=== PATIENT | female | born 1975 | race Caucasian/White ===

== ENCOUNTER 2020-09-14 13:37 | Outpatient (REF) | payer BC, MEDICARE, SELFPAY ==
--- NOTE | 2020-09-14 | US_ITS ---
EXAMINATION: MM DIAGNOSTIC DIGITAL BREAST TOMOSYNTHESIS, BILATERAL US DIAGNOSTIC ULTRASOUND BREAST, LEFT CLINICAL INFORMATION: 45-year-old female with palpable fullness upper outer left breast for years. Patient also notes chronic intermittent bilateral milky discharge for 4 years, greater on left. 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 The lifetime risk of breast cancer based on the Tyrer-Cuzick Model is 9%. COMPARISON: Mammography: 08/31/2016, 02/03/2007 TECHNIQUE: Digital breast tomosynthesis is performed in both the craniocaudal and mediolateral oblique views along with computer-aided detection (CAD). Synthesized 2D images are generated from the tomosynthesis. Additional left exaggerated CC view is provided. Ultrasound left breast is targeted to the area of patient's palpable clinical concern upper outer quadrant. Patient is able to point to area of concern at time of imaging. Grayscale imaging and color Doppler are performed without and with harmonics. FINDINGS: There are scattered areas of fibroglandular density (ACR BI-RADS breast composition Category b). There is no developing density or interval mass or architectural abnormality. There are no abnormal calcifications. The left breast has biopsy clip marker upper outer quadrant adjacent to small stable nodule, previously confirmed to represent a fibroadenoma. There is no mammographic correlate for patient's area of clinical concern. There is no skin thickening or coarsening of the Maximilian's ligaments. Low right axillary tail node on MLO view is stable. Targeted ultrasound left breast shows no cystic or solid mass, architectural abnormality, or focal duct ectasia. No skin thickening or edema tracking in soft tissue planes. Results are discussed with the patient at time of visit. Patient's palpable concern should be managed based on the clinical impression. If clinically indicated, further evaluation may be considered with surgical consult. Decision to proceed with biopsy should be based on clinical grounds and degree of clinical concern. The bilateral nipple discharge should be correlated with laboratories for possible endocrine etiology. IMPRESSION: 1. No mammographic evidence of malignancy or inflammatory changes. 2. Unremarkable targeted left breast ultrasound. ASSESSMENT: BI-RADS 2: Benign RECOMMENDATION: 1. Patient's palpable concern should be managed based on the clinical impression. If clinically indicated, further evaluation may be considered with surgical consult. Decision to proceed with biopsy should be based on clinical grounds and degree of clinical concern. 2. The bilateral nipple discharge should be correlated with laboratories for possible endocrine etiology. 3. Otherwise, routine annual screening mammography. This patient's information was entered into a reminder system with a target due date for their next mammogram.
== END 2020-09-14 13:38 | disposition home or self-care (01) ==
LOC: HO.MAMMO 13:37
PROVIDERS: Visit Provider Internal Medicine
DX: N63.25 Unspecified lump in the left breast, overlapping quadrants (principal); N64.4 Mastodynia
CPT/HCPCS: 76642; 77062; 77066; 78013

== ENCOUNTER → 2021-03-21 14:06 | Outpatient (BNVA) | payer BC, MEDICARE, SELFPAY | PROVIDERS: PCP Internal Medicine; Visit Provider Nurse Practitioner Family ==

== ENCOUNTER 2021-07-21 12:24 | Outpatient (REF) | payer BC, MEDICARE, SELFPAY ==
--- NOTE | ~2021-07-21 | XR_ITS ---
EXAMINATION: XR HIPS, BILATERAL CLINICAL INFORMATION: Pain. COMPARISON: None TECHNIQUE: 2 views of each hip. FINDINGS: RIGHT HIP: Two views of the right hip do not demonstrate any evidence of acute fracture or dislocation. Hip joint spaces maintained. No significant spurring is appreciated. There is mild sclerosis about the sacroiliac joint without effusion. Status post previous surgery at the L5-S1 level. No lytic or sclerotic lesions are seen involving the femoral head. LEFT HIP: Two views of the left hip do not demonstrate any evidence of acute fracture or dislocation. There is mild spurring present with the joint space being maintained. No lytic or sclerotic lesions involving the femoral head noted. XR/XR hip LT min 2V IMPRESSION: 1. No significant hip abnormality appreciated. 2. Degenerative change of the right sacroiliac joint. 3. Status post surgical intervention at the L5-S1 level.
--- NOTE | ~2021-07-21 | XR_ITS ---
EXAMINATION: XR HIPS, BILATERAL CLINICAL INFORMATION: Pain. COMPARISON: None TECHNIQUE: 2 views of each hip. FINDINGS: RIGHT HIP: Two views of the right hip do not demonstrate any evidence of acute fracture or dislocation. Hip joint spaces maintained. No significant spurring is appreciated. There is mild sclerosis about the sacroiliac joint without effusion. Status post previous surgery at the L5-S1 level. No lytic or sclerotic lesions are seen involving the femoral head. LEFT HIP: Two views of the left hip do not demonstrate any evidence of acute fracture or dislocation. There is mild spurring present with the joint space being maintained. No lytic or sclerotic lesions involving the femoral head noted. XR/XR hip RT min 2V IMPRESSION: 1. No significant hip abnormality appreciated. 2. Degenerative change of the right sacroiliac joint. 3. Status post surgical intervention at the L5-S1 level.
--- NOTE | ~2021-07-21 | MR_ITS ---
EXAMINATION: MRI BRAIN WITHOUT CONTRAST CLINICAL INFORMATION: 45-year-old with headache, unspecified. COMPARISON: None. TECHNIQUE: Multiplanar multisequence MR imaging of the brain was done. FINDINGS: Brain Volume: Within normal limits based on qualitative analysis. 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 Brain and Meninges: DWI imaging demonstrates no restricted diffusion to suggest acute or subacute cerebral ischemia. The brain is normal in morphology and signal intensity. Gradient echo imaging demonstrates no evidence for hemorrhage, hemosiderin staining or abnormal mineral deposition. No extra-axial fluid collections, space-occupying process or mass effect are identified. Ventricles and Subarachnoid Spaces: Ventricular system and subarachnoid spaces are within normal limits without hydrocephalus. Orbital Structures: The visualized orbital structures are grossly unremarkable within the limitations of the study. Vascular: Signal voids are noted in the visualized major intracranial vessels. Sinuses and Osseous Structures: Nasal septal deviation to the left is noted. Bony structures appear intact. MR/MR head/brain wo con IMPRESSION: 1. 7 mm incidental benign pineal cyst. 2. Otherwise, normal noncontrast MRI of the brain.
[2021-07-21 13:38] LABS: Glucose Urine UA NEG (NEG); Leukocyte Esterase Urine NEG (NEG); Nitrite Urine NEG (NEG); PH 8.5 (5.0-8.0); Specific Gravity - Urine 1.015 (1.005-1.025); Urine Blood NEG (NEG); Urine Ketones NEG (NEG); Urine Protein TRACE MG/DL (NEG-TRACE)
[2021-07-21 13:43] LABS: Appearance Urine CLEAR; Color Urine YELLOW
[2021-07-21 13:50] LABS: Alanine Aminotransferase 15 U/L (0-31); Albumin Level 4.4 g/dL (3.5-5.0); Alkaline Phosphatase 56 U/L (39-117); Anion Gap 10 (12-20); Aspartate Amino Transferase 18 U/L (5-31); Bilirubin Total 0.4 mg/dL (0.0-1.0); Blood Urea Nitrogen 9 mg/dL (9-16); Calcium 9.5 mg/dL (8.4-10.2); Carbon Dioxide 28 mmol/L (22-29); Chloride 105 mmol/L (96-108); Cholesterol 178 mg/dL; Estimated Glomerular Filt Rate > 60; Glucose Fasting 95 mg/dL (60-99); HDL Cholesterol 35 mg/dL; LDL Cholesterol Calculated 118 mg/dl; Potassium 4.4 mmol/L (3.3-5.1); Sodium 139 mmol/L (135-145); Total Protein 7.1 g/dL (6.5-8.0); Triglycerides 125 mg/dL
[2021-07-21 14:12] LABS: TSH reflex Free T4 (Prenatal) 0.45 uIU/mL (0.32-4.0)
[2021-07-26 19:21] LABS: Vitamin D 25-OH, D2 <4 ng/mL; Vitamin D 25-OH, D3 14 ng/mL; Vitamin D 25-OH, Total 14 ng/mL (30-100)
== END 2021-07-21 12:25 | disposition home or self-care (01) ==
LOC: HO.MRI 12:24
PROVIDERS: Internal Medicine; PCP Internal Medicine; Visit Provider Internal Medicine
DX: R51.9 Headache, unspecified (principal); M25.551 Pain in right hip; M54.9 Dorsalgia, unspecified; M25.552 Pain in left hip; R30.0 Dysuria; E78.5 Hyperlipidemia, unspecified; E55.9 Vitamin D deficiency, unspecified; E66.9 Obesity, unspecified
CPT/HCPCS: 36415; 70551; 73502; 80053; 80061; 81003; 82306

== ENCOUNTER 2021-10-31 13:27 | Outpatient (REF) | payer BC, MEDICARE, SELFPAY ==
[2021-11-01 09:30] LABS: CT PCR NOT DETECTED (Not Detect.); NG PCR NOT DETECTED (Not Detect.)
[2021-11-01 10:02] LABS: BV Int Neg Control Negative (Negative); BV Int Pos Control Positive (Positive)
[2021-11-04 13:06] LABS: HPV mRNA E6/E7 rflx Not Detected (Not Detected)
== END 2021-10-31 13:28 | disposition home or self-care (01) ==
LOC: HO.LAB 13:27
PROVIDERS: PCP Internal Medicine; Visit Provider Advanced Practice Midwife
DX: Z01.411 Encounter for gynecological examination (general) (routine) with abnormal findings (principal); Z11.51 Encounter for screening for human papillomavirus (HPV); N64.52 Nipple discharge; N64.3 Galactorrhea not associated with childbirth; Z20.2 Contact with and (suspected) exposure to infections with a predominantly sexual mode of transmission; N89.8 Other specified noninflammatory disorders of vagina
CPT/HCPCS: 87480; 87491; 87510; 87591; 87624; 87660; 88142

== ENCOUNTER 2021-11-08 18:23 | Outpatient (REF) | payer BC, MEDICARE, SELFPAY ==
[2021-11-08 18:56] LABS: Amphetamine Screen Urine Not Detected (Not Detect); Barbiturates, Urine Not Detected (Not Detect); Benzodiazepines Screen Urine Not Detected (Not Detect); Cannabinoid Screen Urine Not Detected (Not Detect); Cocaine Screen Urine Not Detected (Not Detect); Fentanyl, urine POSITIVE (Not Detect); Opiate Screen Urine Not Detected (Not Detect); Phencyclidine Screen Urine Not Detected (Not Detect)
[2021-11-18 08:10] LABS: Nordiazepam, GCMS Urine NEGATIVE; Oxazepam, GCMS Urine NEGATIVE
[2021-11-18 08:11] LABS: Alphahydroxytriazolam, GCMS Ur NEGATIVE; Alprazolam, GCMS Urine NEGATIVE; Lorazepam GCMS Urine NEGATIVE
[2021-11-18 08:12] LABS: Alphahydroxymidazolam,GCMS Ur NEGATIVE; Aminoclonazepam, GCMS Urine NEGATIVE; Temazepam, GCMS Urine NEGATIVE
[2021-11-18 08:13] LABS: Flurazepam Metabolite,GCMS Ur NEGATIVE
== END 2021-11-08 18:24 | disposition home or self-care (01) ==
LOC: HO.LNP 18:23
PROVIDERS: Visit Provider Internal Medicine
DX: M25.551 Pain in right hip (principal); M25.552 Pain in left hip
CPT/HCPCS: 80307; 80346; 80373

== ENCOUNTER 2021-12-05 11:16 | Outpatient (REF) | payer BC, MEDICARE, SELFPAY ==
[2021-12-06 03:12] LABS: Prolactin 5.4 ng/mL
== END 2021-12-05 11:17 | disposition home or self-care (01) ==
LOC: HO.LAB 11:16
PROVIDERS: PCP Internal Medicine; Visit Provider Advanced Practice Midwife
DX: N64.3 Galactorrhea not associated with childbirth (principal)
CPT/HCPCS: 36415; 84146

== ENCOUNTER → 2021-12-06 14:56 | Outpatient (BNVA) | payer BC, MEDICARE, SELFPAY | PROVIDERS: PCP Internal Medicine; Visit Provider Advanced Practice Midwife ==

== ENCOUNTER → 2022-03-07 13:08 | Outpatient (REF) | payer BC, MEDICARE, MEDICAID, SELFPAY ==
--- NOTE | 2022-03-07 13:13 | ECG_ITS ---
Test Reason : PREOP Blood Pressure : / mmHG Vent. Rate : 084 BPM Atrial Rate : 084 BPM P-R Int : 164 ms QRS Dur : 090 ms QT Int : 364 ms P-R-T Axes : 061 021 019 degrees QTc Int : 430 ms Normal sinus rhythm Nonspecific T wave abnormality Abnormal ECG No previous ECGs available Referred By: Christina Aguilar Electronically Signed By:JOSE KUO MD
[2022-03-07 13:34] LABS: MANUAL DIFF FLAG NO
[2022-03-07 14:01] LABS: Basophils Absolute Auto 0.1 X10*3/uL (0.0-0.2); Basophils Percent Auto 0.9 % (0-2); Eosinophils Absolute Auto 0.2 X10*3/uL (0.0-0.4); Eosinophils Percent Auto 4.1 % (0-4); Hematocrit 36.8 % (37.0-47.0); Hemoglobin 11.3 g/dl (12.0-16.0); Imm Gran Abs Auto 0.02 X10*3/uL (0.00-0.03); Imm Gran Pct Auto 0.3 % (0.0-0.4); Lymphocytes Absolute Auto 1.5 X10*3/uL (1.2-4.9); Lymphocytes Percent Auto 24.9 % (20-40); Mean Corpuscular HGB Conc 30.7 g/dl (31.0-35.0); Mean Corpuscular Hemoglobin 22.8 pg (27.0-33.0); Mean Corpuscular Volume 74.2 fL (80.0-98.0); Mean Platelet Volume 10.8 fL (9.4-12.3); Monocytes Absolute Auto 0.3 X10*3/uL (0.1-1.2); Monocytes Percent Auto 5.1 % (2-11); Neutrophils Absolute Auto 3.8 x10*3/uL (2.0-8.3); Neutrophils Percent Auto 64.7 % (45-73); Platelet Count 357 X10*3/uL (160-400); Red Blood Count 4.96 X10*6/uL (4.20-5.50); Red Cell Distribution Width 16.9 % (11.0-16.0); White Blood Count 5.9 X10*3/uL (4.8-10.8)
[2022-03-07 14:09] LABS: INTERNATIONAL NORM RATIO 1.1 (0.9-1.1); Prothrombin Time 12.2 SEC (9.9-13.0)
[2022-03-07 14:11] LABS: Partial Thromboplastin Time 33.2 SEC (24.1-38.0)
[2022-03-07 14:13] LABS: Estimated Average Glucose 114 mg/dL; Hemoglobin A1c % 5.6 %
[2022-03-07 14:29] LABS: Alanine Aminotransferase 15 U/L (0-31); Albumin Level 4.3 g/dL (3.5-5.0); Alkaline Phosphatase 55 U/L (39-117); Anion Gap 11 (12-20); Aspartate Amino Transferase 15 U/L (5-31); Bilirubin Total 0.3 mg/dL (0.0-1.0); Blood Urea Nitrogen 12 mg/dL (9-16); Calcium 9.4 mg/dL (8.4-10.2); Carbon Dioxide 25 mmol/L (22-29); Chloride 106 mmol/L (96-108); Estimated Glomerular Filt Rate > 60; Glucose Fasting 90 mg/dL (60-99); Potassium 4.2 mmol/L (3.3-5.1); Sodium 138 mmol/L (135-145); Total Protein 7.4 g/dL (6.5-8.0)
[2022-03-07 14:45] LABS: Sickle Cell Scr NEGATIVE (NEGATIVE)
[2022-03-07 14:52] LABS: Free T4 (Free Thyroxine) 0.85 ng/dL (0.71-1.85); HCG Quantitative < 2 mIU/mL; TSH reflex Free T4 (Prenatal) 0.46 uIU/mL (0.32-4.0)
[2022-03-08 08:43] LABS: HIV AB/AG Nonreactive (Nonreactive); HIV Num 1 0.05 S/CO (0.00-0.99)
== END ==
LOC: HO.CARD 13:08
PROVIDERS: PCP Internal Medicine; Visit Provider Internal Medicine
DX: Z01.818 Encounter for other preprocedural examination (principal)
CPT/HCPCS: 36415; 80053; 83036; 84439; 84702; 85025; 85610; 85660; 85730; 87389; 93005

== ENCOUNTER → 2022-03-29 12:50 | Outpatient (BNVA) | payer BC, MEDICARE, MEDICAID, SELFPAY | PROVIDERS: PCP Internal Medicine; Visit Provider Advanced Practice Midwife | DX: N92.0 Excessive and frequent menstruation with regular cycle (principal); Z12.39 Encounter for other screening for malignant neoplasm of breast | CPT/HCPCS: 99212 ==

== ENCOUNTER 2022-04-28 10:19 | Outpatient (REF) | payer BC, MEDICARE, MEDICAID, SELFPAY ==
[2022-04-28 10:43] LABS: MANUAL DIFF FLAG NO
[2022-04-28 11:17] LABS: Basophils Percent Auto 0.4 % (0-2); Eosinophils Absolute Auto 0.2 X10*3/uL (0.0-0.4); Eosinophils Percent Auto 3.7 % (0-4); Hematocrit 41.2 % (37.0-47.0); Hemoglobin 12.8 g/dl (12.0-16.0); Imm Gran Abs Auto 0.01 X10*3/uL (0.00-0.03); Imm Gran Pct Auto 0.2 % (0.0-0.4); Lymphocytes Absolute Auto 1.5 X10*3/uL (1.2-4.9); Mean Corpuscular HGB Conc 31.1 g/dl (31.0-35.0); Mean Corpuscular Hemoglobin 24.3 pg (27.0-33.0); Mean Corpuscular Volume 78.2 fL (80.0-98.0); Mean Platelet Volume 10.3 fL (9.4-12.3); Monocytes Absolute Auto 0.2 X10*3/uL (0.1-1.2); Monocytes Percent Auto 3.7 % (2-11); Neutrophils Absolute Auto 3.3 x10*3/uL (2.0-8.3); Platelet Count 332 X10*3/uL (160-400); Red Blood Count 5.27 X10*6/uL (4.20-5.50); Red Cell Distribution Width 19.5 % (11.0-16.0); White Blood Count 5.2 X10*3/uL (4.8-10.8)
[2022-04-28 11:44] LABS: Iron 130 mcg/dL (30-160); Percent Iron Saturation 33 % (15-50); Total Iron Binding Capacity 393 mcg/dL (228-428); Unsaturated Iron Binding 263 ug/dL
== END 2022-04-28 10:20 | disposition home or self-care (01) ==
LOC: HO.LAB 10:19
PROVIDERS: PCP Internal Medicine; Visit Provider Advanced Practice Midwife
DX: N92.0 Excessive and frequent menstruation with regular cycle (principal); D64.9 Anemia, unspecified
CPT/HCPCS: 36415; 83540; 85025; 85027

== ENCOUNTER 2022-10-15 10:10 | Outpatient (REF) | payer BC, MEDICARE, MEDICAID, SELFPAY ==
[2022-10-15 10:36] LABS: MANUAL DIFF FLAG NO
[2022-10-15 10:54] LABS: Basophils Percent Auto 0.6 % (0-2); Eosinophils Absolute Auto 0.3 X10*3/uL (0.0-0.4); Eosinophils Percent Auto 4.5 % (0-4); Hematocrit 38.8 % (37.0-47.0); Hemoglobin 12.1 g/dl (12.0-16.0); Imm Gran Abs Auto 0.02 X10*3/uL (0.00-0.03); Imm Gran Pct Auto 0.3 % (0.0-0.4); Lymphocytes Absolute Auto 1.7 X10*3/uL (1.2-4.9); Lymphocytes Percent Auto 23.8 % (20-40); Mean Corpuscular HGB Conc 31.2 g/dl (31.0-35.0); Mean Corpuscular Hemoglobin 23.5 pg (27.0-33.0); Mean Corpuscular Volume 75.3 fL (80.0-98.0); Mean Platelet Volume 10.4 fL (9.4-12.3); Monocytes Absolute Auto 0.3 X10*3/uL (0.1-1.2); Monocytes Percent Auto 4.4 % (2-11); Neutrophils Absolute Auto 4.7 x10*3/uL (2.0-8.3); Neutrophils Percent Auto 66.4 % (45-73); Platelet Count 406 X10*3/uL (160-400); Red Blood Count 5.15 X10*6/uL (4.20-5.50); Red Cell Distribution Width 15.9 % (11.0-16.0); White Blood Count 7.1 X10*3/uL (4.8-10.8)
[2022-10-15 11:31] LABS: Alanine Aminotransferase 14 U/L (0-31); Albumin Level 4.5 g/dL (3.5-5.0); Alkaline Phosphatase 66 U/L (39-117); Anion Gap 17 (12-20); Aspartate Amino Transferase 16 U/L (5-31); Bilirubin Total 0.3 mg/dL (0.0-1.0); Blood Urea Nitrogen 9 mg/dL (9-16); Calcium 9.4 mg/dL (8.4-10.2); Carbon Dioxide 22 mmol/L (22-29); Chloride 104 mmol/L (96-108); Cholesterol 222 mg/dL; Estimated Glomerular Filt Rate > 60; Glucose Random 104 mg/dL (60-115); HDL Cholesterol 43 mg/dL; LDL Cholesterol Calculated 140 mg/dl; Potassium 4.5 mmol/L (3.3-5.1); Rheumatoid Factor < 15.0 IU/mL (<15.0); Sodium 138 mmol/L (135-145); Total Protein 7.4 g/dL (6.5-8.0); Triglycerides 195 mg/dL
[2022-10-15 11:41] LABS: Thyroid Stimulating Hormone 0.55 uIU/mL (0.32-4.0)
[2022-10-15 11:48] LABS: Erythrocyte Sedimentation Rate 12 MM/HR (0-20)
== END 2022-10-15 10:11 | disposition home or self-care (01) ==
LOC: HO.LAB 10:10
PROVIDERS: PCP Internal Medicine; Visit Provider Internal Medicine
DX: G47.00 Insomnia, unspecified (principal); M16.0 Bilateral primary osteoarthritis of hip; M79.7 Fibromyalgia; F43.12 Post-traumatic stress disorder, chronic
CPT/HCPCS: 36415; 80053; 80061; 84443; 85025; 85652; 86431

== ENCOUNTER → 2022-11-28 13:00 | Outpatient (BNVA) | payer BC, MEDICARE, MEDICAID, SELFPAY | PROVIDERS: PCP Internal Medicine; Visit Provider Student in an Organized Health Care Education/Training Program | DX: M79.7 Fibromyalgia (principal); M48.061 Spinal stenosis, lumbar region without neurogenic claudication; M17.0 Bilateral primary osteoarthritis of knee; M25.551 Pain in right hip; M25.552 Pain in left hip | CPT/HCPCS: 99202 ==

== ENCOUNTER → 2023-01-01 12:52 | Outpatient (BNVA) | payer BC, MEDICARE, MEDICAID, SELFPAY | PROVIDERS: PCP Internal Medicine; Visit Provider Nurse Practitioner Family | DX: M79.7 Fibromyalgia (principal); M54.16 Radiculopathy, lumbar region; M47.817 Spondylosis without myelopathy or radiculopathy, lumbosacral region; M17.0 Bilateral primary osteoarthritis of knee; M25.551 Pain in right hip; M25.552 Pain in left hip; M53.3 Sacrococcygeal disorders, not elsewhere classified; G89.4 Chronic pain syndrome | CPT/HCPCS: 99212 ==

== ENCOUNTER 2023-01-22 13:27 | Outpatient (REF) | payer BC, MEDICARE, MEDICAID, SELFPAY ==
--- NOTE | ~2023-01-22 | MR_ITS ---
MR LUMBAR SPINE WITHOUT AND WITH CONTRAST CLINICAL INFORMATION: Lumbar region spinal stenosis. COMPARISON: Lumbar spine MRI 08/26/2020. TECHNIQUE: MRI of the lumbar spine was obtained using routine sequences with and without contrast. Intravenous contrast: Gadavist 9 mL FINDINGS: There are postoperative changes following interbody cage placement at L5-S1. Lumbar alignment is normal. The vertebral body heights are maintained. There is an intraosseous hemangioma within the left posterior elements of L1 that is unchanged. There is no bone marrow edema. There are no acute fractures. Nonsurgical disc volumes are preserved. Conus terminates at the L1-L2 level. There are no significant extra spinal soft tissue findings. There is no pathologic enhancement along the cauda equina nerve roots. No suspicious enhancing intraosseous lesions. The nonsurgical disc contours remain within normal limits. There is mild bilateral facet arthropathy at L3-L4 and there is moderate bilateral facet arthropathy and ligamentum flavum thickening at L4-L5. There is no central canal stenosis and there is no foraminal stenosis at the L1-L2, L2-L3, L3-L4, nor the L4-L5 levels. At L5-S1, there are postoperative changes following interbody cage placement. Left paracentral osteophytic ridging mildly indents the ventral thecal sac without contacting the traversing left nerve root. Osteophytic ridging results in mild bilateral foraminal encroachment without exiting nerve root compression. Epidural fat is diffusely maintained. MR/MR lumbar spine wo/w con IMPRESSION: Interval postoperative changes following interbody cage placement at L5-S1. Osteophytic ridging mildly indents the left ventral thecal sac and results in mild bilateral foraminal encroachment at L5-S1 without mass effect on the traversing or exiting nerve roots. The nonsurgical lumbar disc contours remain within normal limits. There is no severe central canal stenosis and there is no severe foraminal stenosis within the lumbar spine.
== END 2023-01-22 13:28 | disposition home or self-care (01) ==
LOC: HO.MRI 13:27
PROVIDERS: Visit Provider Nurse Practitioner Family
DX: M96.1 Postlaminectomy syndrome, not elsewhere classified (principal); M54.16 Radiculopathy, lumbar region; M47.816 Spondylosis without myelopathy or radiculopathy, lumbar region; G89.4 Chronic pain syndrome
CPT/HCPCS: 72158; A9585

== ENCOUNTER 2023-01-24 11:35 | Day surgery (SDC) | payer BC, MEDICARE, MEDICAID, SELFPAY ==
[2023-01-18 12:32] VITALS: BMI 33.5
--- NOTE | ~2023-01-24 | FL_ITS ---
EXAMINATION: XR FLUOROSCOPY WITH IMAGES CLINICAL INFORMATION: Bilateral SI injection COMPARISON: Radiographs bilateral hips 07/21/2021 TECHNIQUE: Fluoroscopy Supervised By: Dr. Chung Hong. Fluoroscopy Time: 0.2 minutes. Cumulative Dose: 4.12 mGy. DAP: 1.12 Gycm2. Images: 2. FINDINGS: Spinal needles overlies both the mid left and mid right SI joints. There is contrast in the periarticular soft tissues with probable early intra-articular contrast. FL/FL guidance in OR IMPRESSION: Fluoroscopy for pain management procedures.
[2023-01-24 11:37] VITALS: BP 131/94; PULSE 82; RESP 20; TEMP 36.1; O2SAT 98
[2023-01-24 11:50] LABS: UPreg QC Valid YES; Urine Pregnancy NEGATIVE (NEGATIVE)
--- NOTE | 2023-01-24 13:03 | MHC.SHP ---
Pre-Procedural Eval Section A Date of Service: 01/24/23 The patient is an INPATIENT: No Changes since office visit: Yes Patient answered all questions The History & Physical has been completed within 30 days and I have reviewed it.: No Section B Chief Complaint: Sacrococcygeal disorders, not elsewhere classified Details of Present Illness: as above Relevant Family History (Specify if Yes): No Relevant Social History: None Present Medications: None Medical History: No relevant PMH History of Previous Operations: No relevant previous surgery Allergies: Allergies Allergy/AdvReac Type Severity Reaction Status Date / Time No Known Allergies Allergy Verified 01/01/23 13:02 Review of Systems Sugical H&P ROS: Negative: Constitution, Cardiovascular, Respiratory, Neurological, Psychiatric, Hem-Onc, Allergic/Immunologic, Gastrointestinal, Genitourinary, Musculoskeletal, Integumentary, Endocrine and Eyes/Ears/Nose/Throat Exam Surgical H&P Exam: Normal: HEENT, Normal: Heart, Normal: Lungs, Normal: Extremities, Normal: Abdomen, Normal: Skin and Normal: Neurological Plan Diagnosis/Plan: Unchanged I have reviewed the history and physical and performed a pertinent physical examination on my patient. No changes have occurred unless specified. Time Spent With Patient Time: Total time managing care of this patient today ____ minutes.
--- NOTE | 2023-01-24 13:16 | W.PM.OPN ---
Operative Note Operative Note Date of Service: 01/24/23 Narrative: Therapeutic bilateral sacroiliac joint injection Informed consent was explained thoroughly to the patient.? All questions about benefits and risks for the procedure were answered. ? Patient came to the operating room and was positioned prone on the operating table with the pillow under her pelvis.ASA monitors were applied and the patient was sedated. ? Time out was performed delineating name and of the patient, site and side of the procedure, nature of the procedure and potential patient?s risks. The lower back of the patient and upper buttocks was prepped with ChloraPrep prepped and draped with sterile utility drapes.? C-arm was brought over the operating field and square picture of patient's pelvis was demonstrated on the screen.? For the right and left joint tilting C-arm contralateral to the site of the joint the posterior joint silhouette was delineated on the screen. Skin projection of the joint was chosen as a target of the injection and it was injected ?slightly medial to the location of the joint with 25 gauge needle using local lidocaine 1% without epinephrine. ? After that 22 gauge 3 and 1/2 inch needle was driven to the joint silhouette in tunnel vision fashion.? When needle entered the joint capsule injection of the contrast was performed demonstrating intra-articular spread of the contrast.? After that 5 cc. of ropivacaine 0.5% mixed with kenalog 30 mg was injected into each joint. Upon completion of the injections the needle was removed and sterile dressing was applied.? Upon completion of the injection patient was taken outside of the operating room to the recovery room where she recovered uneventfully
--- NOTE | 2023-01-24 13:18 | PM.OP ---
Brief Operative Note Date of Service: 01/24/23 Pre-op diagnosis: sacroiliac joint pain Post-op diagnosis: same Procedure: bilateral therapeutic SI joint injection Surgeon: Chung Hong MD Anesthesia: MAC Was an Cemetery Workers Supervisor used for this Procedure?: No Estimated blood loss (mL): 2 Condition: stable Disposition: PACU
[2023-01-24 13:50] VITALS: BP 105/72; PULSE 65; RESP 16; TEMP 36.7; O2SAT 97
--- NOTE | 2023-01-24 13:52 | HO.ANESPROP2 ---
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 (Acute) Heavy menstrual bleeding (Acute) Pre-op evaluation (Acute) Hypovitaminosis D (Acute) Galactorrhea (Acute) Nipple discharge (Acute) Encounter for annual routine gynecological examination (Acute) Headache (Acute) Fibromyalgia (Acute) Right hip pain (Acute) Left hip pain (Acute) Spondylosis of lumbar region without myelopathy or radiculopathy (Acute) Insomnia (Acute) Obese (Acute) Back pain (Acute) Past Medical History Medical History Back pain Fibromyalgia Headache Hypovitaminosis D Insomnia Left hip pain Obese Pre-op evaluation Right hip pain Family History Family History Father Diabetes Hypertension Mother Diabetes Hypertension Family/Other Mental health disorder Sister Lupus (systemic lupus erythematosus) Family history of problems with anesthesia: No Surgical History Surgical History H/O lumbar discectomy History of Problems with Anesthesia: No Social History Social History Household Members: Significant Other and Children Housing: House Alcohol intake: never Patient Tobacco Use Status: Never used Tobacco e-Cigarette/Vaping Use: Never Used Second Hand Smoke Exposure: No Are you DNR?: No Advance Directives: No Advance Directives Information Provided: Yes Nutrition Risks: No Nutritional Risk service: No Current occupational status: unemployed Current occupational exposures/hazards: No Meds Allergies Allergy/AdvReac Type Severity Reaction Status Date / Time No Known Allergies Allergy Verified 01/01/23 13:02 Home Medications Medication Instructions Recorded Confirmed Last Taken Type duloxetine 60 mg capsule,delayed 60 mg PO DAILY 11/28/22 Unknown History release Exam Exam Date and Time: January 24, 2023 1352 Height,Weight and Vital Signs: Height 5 ft 3 in Weight 189 lb Last Vital Signs Temp 97 F 01/24/23 11:37 Pulse 82 01/24/23 11:37 Resp 20 01/24/23 11:37 BP 131/94 H 01/24/23 11:37 Pulse Ox 98 01/24/23 11:37 O2 Del Method 01/24/23 11:37 Pertinent Lab Results Pertinent Lab Results: Laboratory Tests 01/24/23 11:36 Urine Test NEGATIVE Airway Mallampati Class: II TM Dist: >3cm Neck ROM: Full Loose/Missing/Broken Teeth: No Assessment and Plan Assessment Anesthesia Assessment: Anesthesia Plan Discussed and Chart Reviewed Final Anesthetic Review Family History of Problems with Anesthesia: No History of Problems with Anesthesia: No NPO: Yes ASA Class: II Final Preanesthetic Review: No Changes in Pt Med Stat, Meds/Allgs Chart Reviewed, Consent Obtained/Reviewed and Anes Risks/Benef Reviewed Patient Risk: Low Procedure Risk: Low Anesthetic Plan Anesthetic Plan: MAC: Disposition: Standard PACU
[2023-01-24 14:05] VITALS: BP 115/68; PULSE 71; RESP 16; O2SAT 98
[2023-01-24 14:20] VITALS: BP 126/81; PULSE 76; RESP 16; TEMP 36.8; O2SAT 100
== END 2023-01-24 15:09 | disposition home or self-care (01) ==
PROVIDERS: Anesthesiology; PCP Internal Medicine; Visit Provider Anesthesiology
PROC: 3E0U33Z Introduction of Anti-inflammatory into Joints, Percutaneous Approach (ICD-10-PCS; CPT 27096; principal; 2023-01-24 15:00)
DX: M53.3 Sacrococcygeal disorders, not elsewhere classified (principal); G89.4 Chronic pain syndrome; M25.551 Pain in right hip; M25.552 Pain in left hip; M17.0 Bilateral primary osteoarthritis of knee; M79.7 Fibromyalgia; M54.16 Radiculopathy, lumbar region; M47.817 Spondylosis without myelopathy or radiculopathy, lumbosacral region; E55.9 Vitamin D deficiency, unspecified; E66.9 Obesity, unspecified; Z68.33 Body mass index [BMI] 33.0-33.9, adult
CPT/HCPCS: G0260; 81025; J2250; J3010; J3301

== ENCOUNTER 2023-01-29 13:28 | Outpatient (REF) | payer MEDICARE, BC, MEDICAID, SELFPAY | END 2023-01-29 13:29 | disposition home or self-care (01) | LOC: HO.LAB 13:28 | PROVIDERS: PCP Internal Medicine; Visit Provider Advanced Practice Midwife | DX: Z13.89 Encounter for screening for other disorder (principal) | CPT/HCPCS: 81003 ==

== ENCOUNTER 2023-01-29 14:10 | Outpatient (REF) | payer BC, MEDICARE, MEDICAID, SELFPAY ==
[2023-01-30 02:18] LABS: CT PCR NOT DETECTED (Not Detect.); NG PCR NOT DETECTED (Not Detect.)
[2023-01-30 13:17] LABS: BV Int Neg Control Negative (Negative); BV Int Pos Control Positive (Positive)
== END 2023-01-29 14:11 | disposition home or self-care (01) ==
LOC: HO.LNP 14:10
PROVIDERS: Visit Provider Advanced Practice Midwife
DX: R30.0 Dysuria (principal); N89.8 Other specified noninflammatory disorders of vagina; Z20.2 Contact with and (suspected) exposure to infections with a predominantly sexual mode of transmission
CPT/HCPCS: 0353U; 81003; 87086; 87088; 87186; 87480; 87510; 87660

== ENCOUNTER 2023-02-05 07:33 | Day surgery (SDC) | payer MEDICARE, BC, MEDICAID, SELFPAY ==
--- NOTE | 2023-02-04 12:18 | HO.ANESPROP2 ---
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 (Acute) Heavy menstrual bleeding (Acute) Pre-op evaluation (Acute) Hypovitaminosis D (Acute) Galactorrhea (Acute) Nipple discharge (Acute) Encounter for annual routine gynecological examination (Acute) Headache (Acute) Fibromyalgia (Acute) Right hip pain (Acute) Left hip pain (Acute) Spondylosis of lumbar region without myelopathy or radiculopathy (Acute) Insomnia (Acute) Obese (Acute) Back pain (Acute) Past Medical History Medical History Back pain Fibromyalgia Headache Hypovitaminosis D Insomnia Left hip pain Obese Pre-op evaluation Right hip pain Family History Family History Father Diabetes Hypertension Mother Diabetes Hypertension Family/Other Mental health disorder Sister Lupus (systemic lupus erythematosus) Brother Colon cancer Family history of problems with anesthesia: No Surgical History Surgical History H/O lumbar discectomy History of abdominoplasty History of Problems with Anesthesia: No Social History Social History Household Members: Significant Other and Children Housing: House Alcohol intake: never Patient Tobacco Use Status: Never used Tobacco e-Cigarette/Vaping Use: Never Used Second Hand Smoke Exposure: No Are you DNR?: No Advance Directives: No Advance Directives Information Provided: Yes Nutrition Risks: No Nutritional Risk FDLMP: October 2022 service: No Current occupational status: unemployed Current occupational exposures/hazards: No Meds Allergies Allergy/AdvReac Type Severity Reaction Status Date / Time No Known Allergies Allergy Verified 02/05/23 08:04 Home Medications Medication Instructions Recorded Confirmed Last Taken Type duloxetine 60 mg capsule,delayed 1 cap PO DAILY 02/04/23 02/04/23 Unknown History release ferrous sulfate 325 mg (65 mg 1 tab PO DAILY 02/04/23 02/04/23 Unknown History iron) tablet pregabalin 50 mg capsule 1 cap PO BID pain 02/04/23 02/04/23 Unknown History sertraline 50 mg tablet 1 tab PO QAM 02/04/23 02/04/23 Unknown History Exam Exam Date and Time: February 04, 2023 1218 Pertinent Lab Results Pertinent Lab Results: Laboratory Tests 10/15/22 10/15/22 10:34 10:34 WBC 7.1 Hgb 12.1 Hct 38.8 Plt Count 406 H Sodium 138 Potassium 4.5 Chloride 104 Carbon Dioxide 22 BUN 9 Creatinine 0.71 Narrative Narrative: EKG 03/2022 Vent. Rate : 084 BPM ? ? Atrial Rate : 084 BPM ?? P-R Int : 164 ms? QRS Dur : 090 ms ? ? QT Int : 364 ms ? ? ? P-R-T Axes : 061 021 019 degrees ?? QTc Int : 430 ms ? Normal sinus rhythm Nonspecific T wave abnormality Abnormal ECG No previous ECGs available Assessment and Plan Assessment Anesthesia Assessment: Chart Reviewed Final Anesthetic Review Family History of Problems with Anesthesia: No History of Problems with Anesthesia: No Documented by User: Perico Morales MD 02/05/23 09:10 [facility] Past Medical History Medical History Back pain Fibromyalgia Headache Hypovitaminosis D Insomnia Left hip pain Obese Pre-op evaluation Right hip pain Patient : No Family History Family History Father Diabetes Hypertension Mother Diabetes Hypertension Family/Other Mental health disorder Sister Lupus (systemic lupus erythematosus) Brother Colon cancer Family history of problems with anesthesia: No Surgical History Surgical History H/O lumbar discectomy History of abdominoplasty History of Problems with Anesthesia: No Social History Social History Household Members: Significant Other and Children Housing: House Alcohol intake: never Patient Tobacco Use Status: Never used Tobacco e-Cigarette/Vaping Use: Never Used Second Hand Smoke Exposure: No Are you DNR?: No Advance Directives: No Advance Directives Information Provided: Yes Nutrition Risks: No Nutritional Risk FDLMP: October 2022 service: No Current occupational status: unemployed Current occupational exposures/hazards: No Meds Allergies Allergy/AdvReac Type Severity Reaction Status Date / Time No Known Allergies Allergy Verified 02/05/23 08:04 Home Medications Medication Instructions Recorded Confirmed Last Taken Type duloxetine 60 mg capsule,delayed 1 cap PO DAILY 02/04/23 02/04/23 Unknown History release ferrous sulfate 325 mg (65 mg 1 tab PO DAILY 02/04/23 02/04/23 Unknown History iron) tablet pregabalin 50 mg capsule 1 cap PO BID pain 02/04/23 02/04/23 Unknown History sertraline 50 mg tablet 1 tab PO QAM 02/04/23 02/04/23 Unknown History Exam Airway Mallampati Class: I TM Dist: >3cm Neck ROM: Full Heart: ok Lungs: ok Assessment and Plan Assessment Anesthesia Assessment: Anesthesia Plan Discussed and Chart Reviewed Final Anesthetic Review Family History of Problems with Anesthesia: No History of Problems with Anesthesia: No NPO: Yes ASA Class: II Final Preanesthetic Review: No Changes in Pt Med Stat, Meds/Allgs Chart Reviewed, Consent Obtained/Reviewed and Anes Risks/Benef Reviewed Patient Risk: Intermediate Procedure Risk: Low Anesthetic Plan Anesthetic Plan: MAC: and Agree w/ Assess. and Plan Disposition: Standard PACU
[2023-02-05 07:48] VITALS: BMI 33.6
[2023-02-05 07:52] LABS: UPreg QC Valid YES; Urine Pregnancy NEGATIVE (NEGATIVE)
[2023-02-05 08:04] VITALS: BP 123/79; PULSE 82; RESP 18; TEMP 36.8; O2SAT 98
[2023-02-05] MEDS: Lactated Ringers 1,000 ML 100 ML IVCONT (08:17)
[2023-02-05] MEDS: Sodium Phosphate,Mono-Dibasic 133 ML ENEMA PR (08:17)
--- NOTE | 2023-02-05 08:58 | MHC.SHP ---
Pre-Procedural Eval Section A Date of Service: 02/05/23 Section B Chief Complaint: Encounter for screening for malignant neoplasm of Details of Present Illness: see H&P no changes Relevant Family History (Specify if Yes): No Present Medications: see Short Stay Collaborative assessment Medical History: No relevant PMH History of Previous Operations: No relevant previous surgery Allergies: Allergies Allergy/AdvReac Type Severity Reaction Status Date / Time No Known Allergies Allergy Verified 02/05/23 08:04 Review of Systems Sugical H&P ROS: Negative: Constitution, Cardiovascular, Respiratory, Neurological, Psychiatric, Hem-Onc, Allergic/Immunologic, Gastrointestinal, Genitourinary, Musculoskeletal, Integumentary, Endocrine and Eyes/Ears/Nose/Throat Exam Surgical H&P Exam: Normal: HEENT, Normal: Heart, Normal: Lungs, Normal: Extremities, Normal: Abdomen, Normal: Skin and Normal: Neurological Plan Diagnosis/Plan: Unchanged I have reviewed the history and physical and performed a pertinent physical examination on my patient. No changes have occurred unless specified. Time Spent With Patient Time: Total time managing care of this patient today ____ minutes.
--- NOTE | 2023-02-05 09:24 | PM.OP ---
Brief Operative Note Date of Service: 02/05/23 Procedure: colonoscopy Surgeon: Maco Cat Anesthesia: MAC Was an Automatic Lathe Tender used for this Procedure?: No Estimated blood loss (mL): 2 Pathology: other Condition: stable Disposition: PACU
[2023-02-05 09:29] VITALS: BP 117/66; BP 135/90; PULSE 77; PULSE 81; RESP 16; RESP 20; TEMP 36.4; TEMP 36.6; O2SAT 96; O2SAT 99
[2023-02-05] MEDS: Albuterol Sulfate 90 MCG 8 GM INHALER 2 PUFF INHALE (10:05)
--- NOTE | 2023-02-05 10:28 | PC.NURSE ---
Pt c/o SOB with asthma symptoms. Lungs clear throughout. Tightness audible. Prod clear fluid during coughing. Ventolin inhaler used c good effect. no further c/o after inhaler.
--- NOTE | 2023-02-05 11:48 | OP_ITS ---
SURGEON: Maco Cat MD INDICATIONS: Consultation and colorectal cancer screening. PREOPERATIVE DIAGNOSIS: POSTOPERATIVE DIAGNOSIS: PROCEDURE PERFORMED: ESTIMATED BLOOD LOSS: COMPLICATIONS: ANESTHESIA: Monitored anesthesia care. ASSISTANTS: SPECIMENS: DESCRIPTION OF PROCEDURE: The procedure was performed on 02/05/2023. A history and physical was performed. The risks and benefits of the procedure were explained to the patient, and informed consent was obtained. The patient was placed in the left lateral decubitus position. A digital rectal exam was performed and was found to be normal. The Olympus pediatric video colonoscope was introduced into the rectum and advanced to the cecum without difficulty. The cecum was identified by transillumination, palpation, and identification of ileocecal valve. Examination was performed. The scope was removed. She tolerated the procedure well and was returned to the recovery area in stable condition. FINDINGS: The terminal ileum was examined and appeared normal. The visualized colonic mucosa was normal. The quality of the prep was good. No polyps were identified. The mucosa appeared normal. No obstruction was seen. There was no evidence of colitis. Random sigmoid biopsies were obtained to evaluate for any evidence of microscopic or collagenous colitis. Retroflexed examination was normal. IMPRESSION: Normal colonoscopy. RECOMMENDATION: 1. Follow up as needed. 2. Follow up the biopsy results. 3. Repeat colonoscopy is recommended in 10 years for average risk individuals. MD TOMMY Milan/EVELIN / [id number]
== END 2023-02-05 10:15 | disposition home or self-care (01) ==
PROVIDERS: Nurse Practitioner; PCP Internal Medicine; Visit Provider Internal Medicine Gastroenterology
PROC: 0DJD8ZZ Inspection of Lower Intestinal Tract, Via Natural or Artificial Opening Endoscopic (ICD-10-PCS; CPT 45378; principal; 2023-02-05 08:50)
DX: Z12.11 Encounter for screening for malignant neoplasm of colon (principal); K59.04 Chronic idiopathic constipation; Z79.1 Long term (current) use of non-steroidal anti-inflammatories (NSAID)
CPT/HCPCS: G0121; 81025; 88305

== ENCOUNTER 2023-03-25 12:37 | Outpatient (REF) | payer MEDICARE, BC, MEDICAID, SELFPAY ==
--- NOTE | ~2023-03-25 | MM_ITS ---
EXAMINATION: MM SCREENING DIGITAL BREAST TOMOSYNTHESIS, BILATERAL CLINICAL INFORMATION: Screening. Asymptomatic. The lifetime risk of breast cancer based on the Tyrer-Cuzick Model is 10.8%. COMPARISON: Mammography: September 14, 2020 and studies dating back to February 03, 2007 TECHNIQUE: Digital breast tomosynthesis is performed in both the craniocaudal and mediolateral oblique views along with computer-aided detection (CAD). Synthesized 2D images are generated from the tomosynthesis. FINDINGS: There are scattered areas of fibroglandular density (ACR BI-RADS breast composition Category b). There are no significant masses, abnormal calcifications, or other abnormalities. MM/MM tomosynthesis screening BI IMPRESSION: No significant changes from prior exam. ASSESSMENT: BI-RADS 1: Negative RECOMMENDATION: Routine annual mammography screening. This patient's information was entered into a reminder system with a target due date for their next mammogram.
== END 2023-03-25 12:38 | disposition home or self-care (01) ==
LOC: HO.MAMMO 12:37
PROVIDERS: PCP Internal Medicine; Visit Provider Advanced Practice Midwife
DX: Z12.31 Encounter for screening mammogram for malignant neoplasm of breast (principal)
CPT/HCPCS: 77063; 77067

== ENCOUNTER 2023-05-30 17:16 | Emergency (ER) | payer MEDICARE, MEDICAID, SELFPAY ==
--- NOTE | 2023-05-30 17:24 | ECG_ITS ---
Test Reason : PANIC ATTACK Blood Pressure : / mmHG Vent. Rate : 087 BPM Atrial Rate : 087 BPM P-R Int : 170 ms QRS Dur : 088 ms QT Int : 406 ms P-R-T Axes : 046 010 003 degrees QTc Int : 488 ms Normal sinus rhythm Nonspecific T wave abnormality Prolonged QT Abnormal ECG When compared with ECG of 07-MAR-2022 13:30, QT has lengthened Referred By: Jammie Galvan Electronically Signed By:
[2023-05-30 17:42] VITALS: BP 136/86; PULSE 73; RESP 18; TEMP 36.6; O2SAT 99; BMI 32.2
[2023-05-30 17:42] LABS: MANUAL DIFF FLAG NO
[2023-05-30 17:48] LABS: Basophils Percent Auto 0.4 % (0-2); Eosinophils Absolute Auto 0.2 X10*3/uL (0.0-0.4); Eosinophils Percent Auto 4.3 % (0-4); Hematocrit 38.8 % (37.0-47.0); Imm Gran Abs Auto 0.01 X10*3/uL (0.00-0.03); Imm Gran Pct Auto 0.2 % (0.0-0.4); Lymphocytes Absolute Auto 1.9 X10*3/uL (1.2-4.9); Lymphocytes Percent Auto 34.9 % (20-40); Mean Corpuscular HGB Conc 30.9 g/dl (31.0-35.0); Mean Corpuscular Hemoglobin 22.7 pg (27.0-33.0); Mean Corpuscular Volume 73.5 fL (80.0-98.0); Mean Platelet Volume 11.3 fL (9.4-12.3); Monocytes Absolute Auto 0.3 X10*3/uL (0.1-1.2); Monocytes Percent Auto 4.9 % (2-11); Neutrophils Percent Auto 55.3 % (45-73); Platelet Count 305 X10*3/uL (160-400); Red Blood Count 5.28 X10*6/uL (4.20-5.50); White Blood Count 5.3 X10*3/uL (4.8-10.8)
[2023-05-30 17:59] LABS: Alanine Aminotransferase 20 U/L (0-31); Albumin Level 4.3 g/dL (3.5-5.0); Alkaline Phosphatase 50 U/L (39-117); Anion Gap 12 (12-20); Aspartate Amino Transferase 23 U/L (5-31); Bilirubin Total 0.3 mg/dL (0.0-1.0); Blood Urea Nitrogen 7 mg/dL (9-16); Calcium 9.7 mg/dL (8.4-10.2); Carbon Dioxide 26 mmol/L (22-29); Chloride 106 mmol/L (96-108); Creatinine Clr Calc Pharmacy 107.7; Estimated Glomerular Filt Rate > 60; Glucose Random 106 mg/dL (60-115); Magnesium 1.9 mg/dL (1.6-2.6); Potassium 3.3 mmol/L (3.3-5.1); Sodium 141 mmol/L (135-145); Total Protein 7.2 g/dL (6.5-8.0)
[2023-05-30 18:06] LABS: Troponin-I High Sensitivity < 2.7 ng/L (<3.5-17.0)
[2023-05-30 19:24] VITALS: BP 123/76; PULSE 68; RESP 16; TEMP 36.9; O2SAT 98
--- NOTE | 2023-05-30 19:56 | ED_ITS ---
HPI - Anxiety General Chief Complaint: Anxiety Stated Complaint: panic attack, light headed, per ems Time Seen by Provider: 05/30/23 19:23 Source: patient and family Mode of arrival: EMS History of Present Illness HPI narrative: 47-year-old female with history of anxiety as well as anxiety attacks presents via EMS for heart racing, ear ringing, cool clammy skin, tingling in the hands but denies any preceding triggers that she is aware of and states that she was sitting comfortably on her couch when the symptoms struck her. At the time of my interview patient is significantly improved. Related Data Home Medications Medication Instructions Recorded Confirmed duloxetine 60 mg capsule,delayed 1 cap PO DAILY 02/04/23 02/04/23 release ferrous sulfate 325 mg (65 mg 1 tab PO DAILY 02/04/23 02/04/23 iron) tablet pregabalin 50 mg capsule 1 cap PO BID pain 02/04/23 02/04/23 sertraline 50 mg tablet 1 tab PO QAM 02/04/23 02/04/23 Previous Rx's Medication Instructions Recorded meloxicam 15 mg tablet 15 mg PO DAILY PRN pain, severe 02/01/23 #30 tabs Allergies Allergy/AdvReac Type Severity Reaction Status Date / Time No Known Allergies Allergy Verified 05/30/23 17:45 Review of Systems Review of Systems: Pertinent positives and negatives as stated in HPI PMFSH Past Medical History Source: nursing notes reviewed Medical History Back pain Fibromyalgia Headache Hypovitaminosis D Insomnia Left hip pain Obese Pre-op evaluation Right hip pain Surgical History H/O lumbar discectomy History of abdominoplasty Family History Family History Father Diabetes Hypertension Mother Diabetes Hypertension Family/Other Mental health disorder Sister Lupus (systemic lupus erythematosus) Brother Colon cancer Social History Social History Household Members: Significant Other and Children Housing: House Alcohol intake: never Patient Tobacco Use Status: Never used Tobacco e-Cigarette/Vaping Use: Never Used Second Hand Smoke Exposure: No Advance Directives: No Advance Directives Information Provided: Yes Patient : No service: No Current occupational status: unemployed Current occupational exposures/hazards: No Physical Exam Vital Signs: Vital Signs: Last Vital Signs Temp 98.4 F 05/30/23 19:24 Pulse 68 05/30/23 19:24 Resp 16 05/30/23 19:24 BP 123/76 05/30/23 19:24 Pulse Ox 98 05/30/23 19:24 O2 Del Method Room Air 05/30/23 19:24 BMI result Body Mass Index 32.2 VITAL SIGNS: Reviewed. GENERAL: Well developed, well nourished, in no acute distress. HEAD: Normocephalic/atraumatic EYES: PERRLA, EOMI EARS: Ext canals without abnormality NOSE: Nares patent bilateral OROPHARYNX: no oral lesions noted, posterior pharynx clear NECK: Supple, no adenopathy LUNGS: Normal breath sounds. No adventitious sounds or accessory muscle use. Sp O2<98> CARDIOVASCULAR: Regular rate and rhythm without noted murmurs ABDOMEN: Soft, non-tender, non-distended with bowel sounds. MUSCULOSKELETAL: No tenderness, deformities, or effusions noted on gross inspection. EXTREMITIES: No cyanosis, clubbing or edema. SKIN: Inspection of the skin reveals no rashes NEUROLOGIC: Alert and oriented x 4. Strength and sensation to light touch were grossly intact x 4. Medical Decision Making Medical Decision Making MDM Narrative: 47-year-old female with history and clinical presentation DDX: Infection, arrhythmia, anemia. Reviewed all investigations and hematologic results are chronically stable without any acute changes in certainly no indication of infection, chemistries are grossly normal and patient is completely asymptomatic at this time. Patient states that she has medication at home she is otherwise discharged in stable condition. Differential Diagnosis Please see the discussion above Lab Data Please see the discussion above 05/30/23 17:34 05/30/23 17:34 Labs: Lab Results 05/30/23 05/30/23 05/30/23 Range/Units 17:34 17:34 17:34 WBC 5.3 (4.8-10.8) X10*3/uL RBC 5.28 (4.20-5.50) X10*6/uL Hgb 12.0 (12.0-16.0) g/dl Hct 38.8 (37.0-47.0) % MCV 73.5 L (80.0-98.0) fL MCH 22.7 L (27.0-33.0) pg MCHC 30.9 L (31.0-35.0) g/dl RDW 15.0 (11.0-16.0) % Plt Count 305 (160-400) X10*3/uL MPV 11.3 (9.4-12.3) fL Immature Gran % (Auto) 0.2 (0.0-0.4) % Neut % (Auto) 55.3 (45-73) % Lymph % (Auto) 34.9 (20-40) % Nolan % (Auto) 4.9 (2-11) % Eos % (Auto) 4.3 H (0-4) % Baso % (Auto) 0.4 (0-2) % Lymph # (Auto) 1.9 (1.2-4.9) X10*3/uL Nolan # (Auto) 0.3 (0.1-1.2) X10*3/uL Eos # (Auto) 0.2 (0.0-0.4) X10*3/uL Baso # (Auto) 0.0 (0.0-0.2) X10*3/uL Abs Immat Gran (auto) 0.01 (0.00-0.03) X10*3/uL Absolute Neuts (auto) 3.0 (2.0-8.3) x10*3/uL Absolute Nucleated RBC 0.000 (0.0-0.012) X10*3/uL Nucleated RBC % (auto) 0.0 (0.0-0.2) /100WBC Sodium 141 (135-145) mmol/L Potassium 3.3 D (3.3-5.1) mmol/L Chloride 106 (96-108) mmol/L Carbon Dioxide 26 (22-29) mmol/L Anion Gap 12 (12-20) BUN 7 L (9-16) mg/dL Creatinine 0.65 (0.5-1.4) mg/dL Estim Creat Clear Calc 107.7 Estimated GFR > 60 Random Glucose 106 (60-115) mg/dL Calcium 9.7 (8.4-10.2) mg/dL Magnesium 1.9 (1.6-2.6) mg/dL Total Bilirubin 0.3 (0.0-1.0) mg/dL AST 23 (5-31) U/L ALT 20 (0-31) U/L Alkaline Phosphatase 50 (39-117) U/L Troponin I High Sens < 2.7 (<3.5-17.0) ng/L Total Protein 7.2 (6.5-8.0) g/dL Albumin 4.3 (3.5-5.0) g/dL Independent Interpretation I performed an independent interpretation of an: EKG Interpretation: Normal sinus rhythm, HR-87, no STEMI, TX/QRS/QTC are within normal limits. External Record Review External record reviewed: Prior outpatient labs Discharge Plan Discharge Clinical Impression: Panic attack Patient Disposition: Home, Self-Care Instructions: Panic Attack (ED) Additional Instructions: 1. Resume all home medications as prescribed. 2. Recommend follow-up with primary care provider in the next 1-2 days. Return to the ER for any worsening symptoms. Prescriptions: No Action meloxicam 15 mg tablet 15 mg PO DAILY PRN (Reason: pain, severe) Qty: 30 0RF Rx Instructions: Take it with food and full glass of water. Avoid other NSAIDs. ferrous sulfate 325 mg (65 mg iron) tablet 1 tab PO DAILY sertraline 50 mg tablet 1 tab PO QAM duloxetine 60 mg capsule,delayed release(DR/EC) 1 cap PO DAILY pregabalin 50 mg capsule 1 cap PO BID Interventions: ED Discharge Assessment Last Done: 05/30/23 20:05 Discharge Date/Time: 05/30/23 20:06
== END 2023-05-30 20:06 | disposition home or self-care (01) ==
PROVIDERS: Physician Assistant; Emergency Provider Student in an Organized Health Care Education/Training Program
DX: F41.0 Panic disorder [episodic paroxysmal anxiety] (principal); R42 Dizziness and giddiness; Z79.899 Other long term (current) drug therapy
CPT/HCPCS: 36415; 80053; 83735; 84484; 85025; 93005; 99283; 99284

== ENCOUNTER 2023-09-02 11:25 | Outpatient (REF) | payer MEDICARE, BC, MEDICAID, SELFPAY | END 2023-09-02 11:26 | disposition home or self-care (01) | LOC: HO.XRAY 11:25 | PROVIDERS: PCP Internal Medicine; Visit Provider Nurse Practitioner Family | DX: M25.511 Pain in right shoulder (principal); M25.551 Pain in right hip; M25.552 Pain in left hip; M53.3 Sacrococcygeal disorders, not elsewhere classified | CPT/HCPCS: 73030; 73521 ==

== ENCOUNTER 2023-09-02 11:25 | Outpatient (AMB) | payer MEDICARE, BC, SELFPAY ==
--- NOTE | 2023-09-02 11:29 | A.OFFVIS_ITS ---
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 She continues to endorse sacroiliac joint pain and reports good results for several months status post therapeutic SIJ injections on 01/24/[address] Hong. Patient also reports of neck, right shoulder and bilateral knee pain today. Right hand dominant. Right shoulder pain is anterior and increases with overhead reaches and backside pocket reaches with fully preserved range of motions. She has fibromyalgia and reports widespread diffuse body pain that has been increasing with recent cold weather changes. There is no radiation of pain into her legs below knees. Back pain increases with movements, bending or extension. Lumbar spine MRI on 01/22/23 is noted below. Denies any fever, abdominal pain, bladder or bowel dysfunction or saddle anesthesia. Past Procedures: 01/24/23: Bilateral therapeutic SIJ inje ctions-good pain relief for 2-3 months PRIOR: Patient is a pleasant 47 years old female presents today with bilateral hip and low back pain with radicular symptoms. Patient was last seen in our office in March 2021. Patient underwent Anterior lumbar interbody fusion L5-S1 with LT titanium cages and InFUSE on 12/26/[address] Munoz and last follow up visit on 01/13/21. Review of [facility] notes show that second appointment was scheduled in 4 weeks but patient was no show. Patient reports few months after surgery she fell and denies any follow up with [facility]. Patient was seeing her PCP after back surgery with continued back symptoms and was started on tramadol. She presents today with lower back pain that radiates into her lower back and into her buttocks and lateral hips with intermittent groin pain bilaterally. Patient also reports radiation of back pain into her bilateral lower extremities anteriorly with numbness and tingling in her legs and feet. She has significant pain in the projection of both sacroiliac joints, right worse than left as well tenderness of both greater trochanteric. Patient also has symmetrical diffuse and widespread body pain consistent with fibromyalgia. Patient is taking duloxetine with minimal improvement in her fibromyalgia pain and still has difficulty sleeping due to pain. Patient is starting formal physical therapy on 01/17/[address] [facility]. She is interested to undergo bilateral therapeutic SIJ injections un kailash sedation. Patient denies any fever, weight changes, abdominal pain, bladder or bowel incontinence or saddle anesthesia. Reports bilateral lower extremity weakness due to pain. PRIOR Sally LOONEY 03/21/21: Catina is a pleasant 45 year old female who presents to the office with low back pain. She reports the pain radiates across her low back and down posteriorly to the back of her thighs , L>R, with associated numbness and tingling. She denies any weakness, saddle anesthesia, fevers or bowel/bladder dysfunction. She states the pain has been present for years but was tolerable until she had fallen down a flight of stairs in January 2020. She was then seen in January 2021 at [facility] for lumbar surgery. Unfortunately, she states she missed her first postoperative appointment. About 5 weeks after her surgery, she states that her pain has worsened as she returned to being more active. 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 She was recently seen by her PCP who started her on Tramadol and referred her here. She states she has been seen in the ED because her pain was so severe. The pain is worse in the morning/night and less severe in the evening. She reports pain onset was sudden, constant and rates the pain a 9/10. She states the pain is interfering with sleep, activities of daily living and she cannot function normally or care for herself. The patient reports the pain in terms of tissue damage as throbbing, stabbing, pinching and tearing. Her pain is exacerbated by weather changes and activity and alleviated by oral medications and heat. Previously she has tried physical therapy and noted a minimal improvement in her symptoms. Denies any chiropractic manipulation, or massage. Denies any previous back injections. She last had imaging of her lumbar spine prior to surgery. This imaging/report is not available today. [facility] Medical History Pre-op evaluation Hypovitaminosis D Headache Fibromyalgia Right hip pain Left hip pain Insomnia Obese Back pain Surgical History History of abdominoplasty H/O lumbar discectomy Family History Father Diabetes Hypertension Mother Diabetes Hypertension Family/Other Mental health disorder Sister Lupus (systemic lupus erythematosus) Brother Colon cancer Social History Household Members: Significant Other and Children Housing: House Alcohol intake: never Patient Tobacco Use Status: Never used Tobacco e-Cigarette/Vaping Use: Never Used Second Hand Smoke Exposure: No service: No Current occupational status: unemployed Current occupational exposures/hazards: No Female Reproductive History Menstrual Age of Menarche: 11 Review of Systems Const All systems reviewed & are unremarkable except as noted in HPI and below Physical Exam Vital Signs: Last Vital Signs Pulse 79 09/02/23 11:32 BP 135/80 09/02/23 11:32 Pulse Ox 99 09/02/23 11:32 Oxygen Delivery Method Room Air 09/02/23 11:32 BMI result Body Mass Index 32.3 General: Appears afebrile. Alert and oriented. Mood and affect appropriate. Follows and participates in conversation appropriately. Respiratory effort is unlabored. No cough. Able to transition from sit to stand unassisted. Ambulates with bilaterally normal heel strike and toe off. Back/Spine/Pelvis Other: Limited lumbar ROM due to pain. Lumbar extension and flexion reproduce mild to moderate pain. No limping. Can flex forward to 70-75 degrees and extend to 5-10 degrees before experiencing lumbar pain. Demonstrates 5/5 strength of quadriceps bilaterally as well as flexion/dorsiflexion of bilateral feet against resistance. 2+ pedal pulses bilaterally. Straight leg rise with dorsiflexion negative bilaterally. +2 patellar and achilles reflexes bilaterally. Facet l oading test positive bilaterally. Erendira signs, Don?s, Pelvic compression and Stinchfield tests are positive bilaterally, right>left. Mild groin pain with I/E hip rotations bilaterally. Multiple widespread TTP 16/16 bilaterally of upper and lower extremities. Cervical Spine: cervical ROM normal, cervical muscular tenderness and No Cervical spine tenderness Thoracic/Lumbar Spine: thoracic and lumbar spine normal to inspection, Thoracic/lumbar spine scar(s), Lasegue's sign negative, straight leg raise negative bilaterally, pain with thoraco-lumbar ROM, paraspinal muscle tenderness, No thoracic spinal tenderness and lumbar spinal tenderness at L4 and at L5 Pelvis: buttock tenderness bilaterally and no sciatic notch tenderness Sacroiliac joints: bilaterally tender to palpation Extrem General: Yes capillary refill normal, Yes no clubbing, cyanosis or edema and Yes no calf tenderness Right upper extremity: shoulder/upper arm (Difficulty with overhead reach or reaching her back pocket) Details: normal to inspection, tenderness (anterior aspects), normal ROM and crepitus; no swelling, no ecchymosis, no deformity and no unusual warmth Results Reviewed Results Reviewed: XR HIPS, BILATERAL 07/21/21 FINDINGS: RIGHT HIP: Two views of the right hip do not demonstrate any evidence of acute fracture or dislocation. Hip joint spaces maintained. No significant spurring is appreciated. There is mild sclerosis about the sacroiliac joint without effusion. Status post previous surgery at the L5-S1 level. No lytic or sclerotic lesions are seen involving the femoral head. LEFT HIP: Two views of the left hip do not demonstrate any evidence of acute fracture or dislocation. There is mild spurring present with the joint space being maintained. No lytic or sclerotic lesions involving the femoral head noted. IMPRESSION: 1. No significant hip abnormality appreciated. 2. Degenerative change of the right sacroiliac joint. 3. Status post surgical intervention at the L5-S1 level. MR LUMBAR SPINE WITHOUT AND WITH CONTRAST 01/22/23 CLINICAL INFORMATION: Lumbar region spinal stenosis. COMPARISON: Lumbar spine MRI 08/26/2020. TECHNIQUE: MRI of the lumbar spine was obtained using routine sequences with and without contrast. Intravenous contrast: Gadavist 9 mL FINDINGS: There are postoperative changes following interbody cage placement at L5-S1. Lumbar alignment is normal. The vertebral body heights are maintained. There is an intraosseous hemangioma within the left posterior elements of L1 that is unchanged. There is no bone marrow edema. There are no acute fractures. Nonsurgical disc volumes are preserved. Conus terminates at the L1-L2 level. There are no significant extra spinal soft tissue findings. There is no pathologic enhancement along the cauda equina nerve roots. No suspicious enhancing intraosseous lesions. The nonsurgical disc contours remain within normal limits. There is mild bilateral facet arthropathy at L3-L4 and there is moderate bilateral facet arthropathy and ligamentum flavum thickening at L4-L5. There is no central canal stenosis and there is no foraminal stenosis at the L1-L2, L2-L3, L3-L4, nor the L4-L5 levels. At L5-S1, there are postoperative changes following interbody cage placement. Left paracentral osteophytic ridging mildly indents the ventral thecal sac without contacting the traversing left nerve root. Osteophytic ridging results in mild bilateral foraminal encroachment without exiting nerve root compression. Epidural fat is diffusely maintained. IMPRESSION: Interval postoperative changes following interbody cage placement at L5-S1. Osteophytic ridging mildly indents the left ventral thecal sac and results in mild bilateral foraminal encroachment at L5-S1 without mass effect on the traversing or exiting nerve roots. The nonsurgical lumbar disc contours remain within normal limits. There is no severe central canal stenosis and there is no severe foraminal stenosis within the lumbar spine. Assessment & Plan Assessment & Plan (1) Sacroiliac joint pain: Code(s): M53.3 - Sacrococcygeal disorders, not elsewhere classified (2) Right hip pain: Code(s): M25.551 - Pain in right hip (3) Left hip pain: Code(s): M25.552 - Pain in left hip (4) Right shoulder pain: Code(s): M25.511 - Pain in right shoulder (5) Lumbosacral spondylosis: Code(s): M47.817 - Spondylosis without myelopathy or radiculopathy, lumbosacral region (6) Greater trochanteric pain syndrome of both lower extremities: Code(s): M25.551 - Pain in right hip; M25.552 - Pain in left hip (7) Fibromyalgia: Code(s): M79.7 - Fibromyalgia Plan 1. Right shoulder and hip with pelvic views xrays to assess degree of arthritis. If no significant changes in hip imaging per 2020 findings, will proceed with repeating Bilateral Therapeutic Sacroiliac Joint Injections with local and fluoroscopy with oral Ativan. 2. Refill sent for meloxicam per patient's request. Continue duloxetine and Tylenol Arthritis. 3. Recommend PT for right shoulder pain, patient deferred PT at this time due to significant pain. All questions and concerns have been answered and patient agr eed with the plan. Follow up for xray results and sooner as needed. Orders: Orders XR shoulder RT min 2V Today M25.511 - Pain in right shoulder XR hip BI w PEL1V Today M25.551 - Pain in right hip, M25.552 - Pain in left hip, M53.3 - Sacrococcygeal disorders, not elsewhere classified Medications: Refilled meloxicam Take it with food and full glass of water. Avoid other NSAIDs. 15 mg PO DAILY PRN 30 tabs 0RF pain, severe M17.0 - Bilateral primary osteoarthritis of knee, M25.551 - Pain in right hip, M25.552 - Pain in left hip, M47.817 - Spondylosis without myelopathy or radiculopathy, lumbosacral region, M53.3 - Sacrococcygeal disorders, not elsewhere classified Coding Level of Care Code Est Pt Level 4 (92043) Diagnoses Sacroiliac joint pain M53.3 Right hip pain M25.551 Left hip pain M25.552 Right shoulder pain M25.511 Lumbosacral spondylosis M47.817 Greater trochanteric pain syndrome of both lower extremities M25.551; M25.552 Fibromyalgia M79.7
[2023-09-02 11:32] VITALS: BP 135/80; PULSE 79; O2SAT 99; BMI 32.3
== END 2023-09-02 11:41 | disposition home or self-care (01) ==
PROVIDERS: Visit Provider Nurse Practitioner Family
DX: M53.3 Sacrococcygeal disorders, not elsewhere classified (principal); M25.551 Pain in right hip; M25.552 Pain in left hip; M25.511 Pain in right shoulder; M47.817 Spondylosis without myelopathy or radiculopathy, lumbosacral region; M79.7 Fibromyalgia
CPT/HCPCS: 99214

== ENCOUNTER 2023-09-13 11:24 | Outpatient (AMB) | payer MEDICAID, SELFPAY ==
--- NOTE | 2023-09-13 11:30 | MHC.OFFVIS ---
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 She reports persistent pain in her right shoulder, bilateral hips and knees. Denies any recent cough, cold, infection, fever or other significant changes in medical history since last office visit. PRIOR: Patient presents today for follow up for low back pain with radiation to bilateral hips and occasionally into her groins. She continues to endorse sacroiliac joint pain and reports good results for several months status post therapeutic SIJ injections on 01/24/[address] Hong. Patient also reports of neck, right shoulder and bilateral knee pain today. Right hand dominant. Right shoulder pain is anterior and increases with overhead reaches and backside pocket reaches with fully preserved range of motions. She has fibromyalgia and reports widespread diffuse body pain that has been increasing with recent cold weather changes. There is no radiation of pain into her legs below knees. Back pain increases with movements, bending or extension. Lumbar spine MRI on 01/22/23 is noted below. Denies any fever, abdominal pain, bladder or bowel dysfunction or saddle anesthesia. Past Procedures: 01/24/23: Bilateral therapeutic SIJ injections-good pain relief for 2-3 months PRIOR: Patient is a pleasant 47 years old female presents today with bilateral hip and low back pain with radicular symptoms. Patient was last seen in our office in March 2021. Patient underwent Anterior lumbar interbody fusion L5-S1 with LT titanium cages and InFUSE on 12/26/[address] Munoz and last follow up visit on 01/13/21. Review of [facility] notes show that second appointment was scheduled in 4 weeks but patient was no show. Patient reports few months after surgery she fell and denies any follow up with [facility]. Patient was seeing her PCP after back surgery with continued back symptoms and was started on tramadol. She presents today with lower back pain that radiates into her lower back and into her buttocks and lateral hips with intermittent groin pain bilaterally. Patient also reports radiation of back pain into her bilateral lower extremities anteriorly with numbness and tingling in her legs and feet. She has significant pain in the projection of both sacroiliac joints, right worse than left as well tenderness of both greater trochanteric. Patient also has symmetrical diffuse and widespread body pain consistent with fibromyalgia. Patient is taking duloxetine with minimal improvement in her fibromyalgia pain and still has difficulty sleeping due to pain. Patient is starting formal physical therapy on 01/17/23 [facility]. She is interested to undergo bilateral therapeutic SIJ injections under sedation. Patient denies any fever, weight changes, abdominal pain, bladder or bowel incontinence or saddle anesthesia. Reports bilateral lower extremity weakness due to pain. PRIOR [facility] 03/21/21: Catina is a pleasant 45 year old female who presents to the office with low back pain. She reports the pain radiates across her low back and down posteriorly to the back of her thighs , L>R, with associated numbness and tingling. She denies any weakness, saddle anesthesia, fevers or bowel/bladder dysfunction. She states the pain has been present for years but was tolerable until she had fallen down a flight of stairs in January 2020. She was then seen in January 2021 at [facility] for lumbar surgery. Unfortunately, she states she missed her first postoperative appointment. About 5 weeks after her surgery, she states that her pain has worsened as she returned to being more active. 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 She was recently seen by her PCP who started her on Tramadol and referred her here. She states she has been seen in the ED because her pain was so severe. The pain is worse in the morning/night and less severe in the evening. She reports pain onset was sudden, constant and rates the pain a 9/10. She states the pain is interfering with sleep, activities of daily living and she cannot function normally or care for herself. The patient reports the pain in terms of tissue damage as throbbing, stabbing, pinching and tearing. Her pain is exacerbated by weather changes and activity and alleviated by oral medications and heat. Previously she has tried physical therapy and noted a minimal improvement in her symptoms. Denies any chiropractic manipulation, or massage. Denies any previous back injections. She last had imaging of her lumbar spine prior to surgery. This imaging/report is not available today. [facility] Medical History Pre-op evaluation Hypovitaminosis D Headache Fibromyalgia Right hip pain Left hip pain Insomnia Obese Back pain Surgical History History of abdominoplasty H/O lumbar discectomy Family History Father Diabetes Hypertension Mother Diabetes Hypertension Family/Other Mental health disorder Sister Lupus (systemic lupus erythematosus) Brother Colon cancer Social History Household Members: Significant Other and Children Housing: House Alcohol intake: never Patient Tobacco Use Status: Never used Tobacco e-Cigarette/Vaping Use: Never Used Second Hand Smoke Exposure: No service: No Current occupational status: unemployed Current occupational exposures/hazards: No Female Reproductive History Menstrual Age of Menarche: 11 Review of Systems Const All systems reviewed & are unremarkable except as noted in HPI and below Physical Exam Vital Signs: Last Vital Signs Pulse 76 09/13/23 11:33 BP 140/80 H 09/13/23 11:33 Pulse Ox 99 09/13/23 11:33 Oxygen Delivery Method Room Air 09/13/23 11:33 BMI result Body Mass Index 32.4 General: Appears afebrile. Alert and oriented. Mood and affect appropriate. Follows and participates in conversation appropriately. Respiratory effort is unlabored. No cough. Able to transition from sit to stand unassisted. Ambulates with bilaterally normal heel strike and toe off. Multiple widespread TTPs 16/16 bilaterally, including upper and lower extremities. Extrem General: Yes full ROM, Yes capillary refill normal, Yes no clubbing, cyanosis or edema and Yes no calf tenderness Assessment & Plan Assessment & Plan (1) Chronic pain syndrome: Code(s): G89.4 - Chronic pain syndrome (2) Fibromyalgia: Code(s): M79.7 - Fibromyalgia (3) Lumbosacral spondylosis: Code(s): M47.817 - Spondylosis without myelopathy or radiculopathy, lumbosacral region (4) Sacroiliac joint pain: Code(s): M53.3 - Sacrococcygeal disorders, not elsewhere classified (5) Right shoulder pain: Code(s): M25.511 - Pain in right shoulder Plan Recent results for right shoulder and hip with pelvic views reviewed with patient today and are noted above. Both x-rays are normal. Widespread diffuse body pain is consistent with fibromyalgia. Patient reports meloxicam, duloxetine and Tylenol are not beneficial. She has tried pregabalin earlier this year and is not sure if this has been helpful. Discussed gabapentin trial, patient is willing to start 300 mg daily at bedtime for one week and titrate up to BID for 2nd week and TID for 3rd week and on. Discussed side effects and precautions. All questions and concerns have been answered and patient agreed with the plan. Follow up for medication review and sooner if needed. Medications: New gabapentin 300 mg PO TID 30 days 90 caps 0RF pain G89.4 - Chronic pain syndrome, M79.7 - Fibromyalgia Coding Level of Care Code Est Pt Level 4 (25905) Diagnoses Chronic pain syndrome G89.4 Fibromyalgia M79.7 Lumbosacral spondylosis M47.817 Sacroiliac joint pain M53.3 Right shoulder pain M25.511
[2023-09-13 11:33] VITALS: BP 140/80; PULSE 76; O2SAT 99; BMI 32.4
== END 2023-09-13 11:43 | disposition home or self-care (01) ==
PROVIDERS: PCP Internal Medicine; Visit Provider Nurse Practitioner Family
DX: G89.4 Chronic pain syndrome (principal); M79.7 Fibromyalgia; M47.817 Spondylosis without myelopathy or radiculopathy, lumbosacral region; M53.3 Sacrococcygeal disorders, not elsewhere classified; M25.511 Pain in right shoulder
CPT/HCPCS: 99214

== ENCOUNTER → 2023-09-13 11:24 | Outpatient (BNVA) | payer BC, MEDICARE, MEDICAID, SELFPAY | PROVIDERS: PCP Internal Medicine; Visit Provider Nurse Practitioner Family ==

== ENCOUNTER 2023-10-04 13:23 | Outpatient (AMB) | payer MEDICAID, SELFPAY ==
--- NOTE | 2023-10-04 13:23 | A.OFFVIS_ITS ---
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 She reports taking gabapentin with good tolerance and without any side effects. She has been taking it BID-TID with good pain relief and improved sleep as well as improved functioning during the day. Denies any recent cough, cold, infection, fever or other significant changes in medical history since last office visit. PRIOR: Patient presents today for follow up for low back pain with radiation to bilateral hips and occasionally into her groins. She continues to endorse sacroiliac joint pain and reports good results for several months status post therapeutic SIJ injections on 01/24/[address] Hong. Patient also reports of neck, right shoulder and bilateral knee pain today. Right hand dominant. Right shoulder pain is anterior and increases with overhead reaches and backside pocket reaches with fully preserved range of motions. She has fibromyalgia and reports widespread diffuse body pain that has been increasing with recent cold weather changes. There is no radiation of pain into her legs below knees. Back pain increases with movements, bending or extension. Lumbar spine MRI on 01/22/23 is noted below. Denies any fever, abdominal pain, bladder or bowel dysfunction or saddle anesthesia. Past Procedures: 01/24/23: Bilateral therapeutic SIJ inje ctions-good pain relief for 2-3 months PRIOR: Patient is a pleasant 47 years old female presents today with bilateral hip and low back pain with radicular symptoms. Patient was last seen in our office in March 2021. Patient underwent Anterior lumbar interbody fusion L5-S1 with LT titanium cages and InFUSE on 12/26/[address] Munoz and last follow up visit on 01/13/21. Review of [facility] notes show that second appointment was scheduled in 4 weeks but patient was no show. Patient reports few months after surgery she fell and denies any follow up with [facility]. Patient was seeing her PCP after back surgery with continued back symptoms and was started on tramadol. She presents today with lower back pain that radiates into her lower back and into her buttocks and lateral hips with intermittent groin pain bilaterally. Patient also reports radiation of back pain into her bilateral lower extremities anteriorly with numbness and tingling in her legs and feet. She has significant pain in the projection of both sacroiliac joints, right worse than left as well tenderness of both greater trochanteric. Patient also has symmetrical diffuse and widespread body pain consistent with fibromyalgia. Patient is taking duloxetine with minimal improvement in her fibromyalgia pain and still has difficulty sleeping due to pain. Patient is starting formal physical therapy on 01/17/23 at [facility]. She is interested to undergo bilateral therapeutic SIJ injections under sedation. Patient denies any fever, weight changes, abdominal pain, bladder or bowel incontinence or saddle anesthesia. Reports bilateral lower extremity weakness due to pain. PRIOR [employer] 03/21/21: Catina is a pleasant 45 year old female who presents to the office with low back pain. She reports the pain radiates across her low back and down posteriorly to the back of her thighs , L>R, with associated numbness and tingling. She denies any weakness, saddle anesthesia, fevers or bowel/bladder dysfunction. She states the pain has been present for years but was tolerable until she had fallen down a flight of stairs in January 2020. She was then seen in January 2021 at [facility] for lumbar surgery. Unfortunately, she states she missed her first postoperative appointment. About 5 weeks after her surgery, she states that her pain has worsened as she returned to being more active. 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 She was recently seen by her PCP who started her on Tramadol and referred her here. She states she has been seen in the ED because her pain was so severe. The pain is worse in the morning/night and less severe in the evening. She reports pain onset was sudden, constant and rates the pain a 9/10. She states the pain is interfering with sleep, activities of daily living and she cannot function normally or care for herself. The patient reports the pain in terms of tissue damage as throbbing, stabbing, pinching and tearing. Her pain is exacerbated by weather changes and activity and alleviated by oral medications and heat. Previously she has tried physical therapy and noted a minimal improvement in her symptoms. Denies any chiropractic manipulation, or massage. Denies any previous back injections. She last had imaging of her lumbar spine prior to surgery. This imaging/report is not available today. [facility] Medical History Pre-op evaluation Hypovitaminosis D Headache Fibromyalgia Right hip pain Left hip pain Insomnia Obese Back pain Surgical History History of abdominoplasty H/O lumbar discectomy Family History Father Diabetes Hypertension Mother Diabetes Hypertension Family/Other Mental health disorder Sister Lupus (systemic lupus erythematosus) Brother Colon cancer Social History Household Members: Significant Other and Children Housing: House Alcohol intake: never Patient Tobacco Use Status: Never used Tobacco e-Cigarette/Vaping Use: Never Used Second Hand Smoke Exposure: No service: No Current occupational status: unemployed Current occupational exposures/hazards: No Female Reproductive History Menstrual Age of Menarche: 11 Review of Systems Const All systems reviewed & are unremarkable except as noted in HPI and below ENT Reports Normal hearing present Neuro Reports Normal hearing present and Denies confusion Psych Denies confusion Physical Exam Vital Signs: BMI result Body Mass Index 32.8 Const General: cooperative, alert and awake; No confusion Orientation/consciousness: patient oriented x3 and No confusion Resp Effort & Inspection: able to speak in complete sentences, no audible wheezes and no cough Neuro General: patient oriented x3 and No confusion Cranial nerves: Yes Normal hearing present Cognition (Neuro): normal cognition Psych Mental Status: mental status grossly normal Speech and movement: Clear speech present Affect: normal affect Attitude: cooperative Thought process: Normal thought process present Thought content: Normal thought content present and No Depressive thoughts present Insight: Good insight present (Psych) Judgement: Good judgement present (Psych) Results Reviewed Results Reviewed: XR HIPS, BILATERAL 07/21/21 FINDINGS: RIGHT HIP: Two views of the right hip do not demonstrate any evidence of acute fracture or dislocation. Hip joint spaces maintained. No significant spurring is appreciated. There is mild sclerosis about the sacroiliac joint without effusion. Status post previous surgery at the L5-S1 level. No lytic or sclerotic lesions are seen involving the femoral head. LEFT HIP: Two views of the left hip do not demonstrate any evidence of acute fracture or dislocation. There is mild spurring present with the joint space being maintained. No lytic or sclerotic lesions involving the femoral head noted. IMPRESSION: 1. No significant hip abnormality appreciated. 2. Degenerative change of the right sacroiliac joint. 3. Status post surgical intervention at the L5-S1 level. MR LUMBAR SPINE WITHOUT AND WITH CONTRAST 01/22/23 CLINICAL INFORMATION: Lumbar region spinal stenosis. COMPARISON: Lumbar spine MRI 08/26/2020. TECHNIQUE: MRI of the lumbar spine was obtained using routine sequences with and without contrast. Intravenous contrast: Gadavist 9 mL FINDINGS: There are postoperative changes following interbody cage placement at L5-S1. Lumbar alignment is normal. The vertebral body heights are maintained. There is an intraosseous hemangioma within the left posterior elements of L1 that is unchanged. There is no bone marrow edema. There are no acute fractures. Nonsurgical disc volumes are preserved. Conus terminates at the L1-L2 level. There are no significant extra spinal soft tissue findings. There is no pathologic enhancement along the cauda equina nerve roots. No suspicious enhancing intraosseous lesions. The nonsurgical disc contours remain within normal limits. There is mild bilateral facet arthropathy at L3-L4 and there is moderate bilateral facet arthropathy and ligamentum flavum thickening at L4-L5. There is no central canal stenosis and there is no foraminal stenosis at the L1-L2, L2-L3, L3-L4, nor the L4-L5 levels. At L5-S1, there are postoperative changes following interbody cage placement. Left paracentral osteophytic ridging mildly indents the ventral thecal sac without contacting the traversing left nerve root. Osteophytic ridging results in mild bilateral foraminal encroachment without exiting nerve root compression. Epidural fat is diffusely maintained. IMPRESSION: Interval postoperative changes following interbody cage placement at L5-S1. Osteophytic ridging mildly indents the left ventral thecal sac and results in mild bilateral foraminal encroachment at L5-S1 without mass effect on the traversing or exiting nerve roots. The nonsurgical lumbar disc contours remain within normal limits. There is no severe central canal stenosis and there is no severe foraminal stenosis within the lumbar spine. Assessment & Plan Assessment & Plan (1) Chronic pain syndrome: Code(s): G89.4 - Chronic pain syndrome (2) Fibromyalgia: Code(s): M79.7 - Fibromyalgia (3) Lumbosacral spondylosis: Code(s): M47.817 - Spondylosis without myelopathy or radiculopathy, lumbosacral region (4) Sacroiliac joint pain: Code(s): M53.3 - Sacrococcygeal disorders, not elsewhere classified (5) Right shoulder pain: Code(s): M25.511 - Pain in right shoulder Plan Patient tolerates gabapentin well without any side effects. Refill sent for gabapentin. Encouraged daily physical activity, weight optimization, good posture, sleep hygiene, and adequate daily hydration. All questions and concerns have been answered and patient agreed with the plan. Follow up as needed. I hereby testify that I spent 7 minutes in conversation with this patient as well as with planning and coordinating care for this patient and organizing this note. Medications: Refilled gabapentin 300 mg PO TID 90 caps 0RF pain 30 days G89.4 - Chronic pain syndrome, M79.7 - Fibromyalgia Telehealth Telehealth Location of provider rendering services: practice address Location of patient: address on file Patient Identification confirmed using: Name, : Yes Telehealth method: voice only Patient verbally consented to treatment: Yes Patient verbally consented to billing insurance company: Yes Patient informed of any privacy concerns related to visit: Yes Minutes spent on Phone/Video with Pt.: 7 Coding Level of Care Code Tele Est Pt Level 3 (17838) Diagnoses Chronic pain syndrome G89.4 Fibromyalgia M79.7 Lumbosacral spondylosis M47.817 Sacroiliac joint pain M53.3 Right shoulder pain M25.511
[2023-10-04 13:26] VITALS: BMI 32.8
== END 2023-10-04 13:29 | disposition home or self-care (01) ==
LOC: HO.PMC 13:23
PROVIDERS: PCP Internal Medicine; Visit Provider Nurse Practitioner Family
DX: G89.4 Chronic pain syndrome (principal); M79.7 Fibromyalgia; M47.817 Spondylosis without myelopathy or radiculopathy, lumbosacral region; M53.3 Sacrococcygeal disorders, not elsewhere classified; M25.511 Pain in right shoulder
CPT/HCPCS: 99441

== ENCOUNTER → 2023-10-04 13:23 | Outpatient (BNVA) | payer BC, MEDICARE, MEDICAID, SELFPAY | PROVIDERS: PCP Internal Medicine; Visit Provider Nurse Practitioner Family ==

== ENCOUNTER 2024-03-23 12:34 | Outpatient (REF) | payer MEDICARE, BC, MEDICAID, SELFPAY ==
--- NOTE | ~2024-03-23 | US_ITS ---
EXAMINATION: US PELVIS CLINICAL INFORMATION: Abnormal uterine and vaginal bleeding, unspecified No menstruation for 8-9 months. Heavy bleeding for 4 days with large clots. COMPARISON: Pelvic ultrasound 10/09/2016 TECHNIQUE: Ultrasound of the pelvis is performed using both transabdominal and transvaginal transducers along with Doppler. Transvaginal imaging is performed due to inadequate visualization transabdominally. FINDINGS: Uterus: The uterus is anteverted and measures 8.9 x 4.5 x 5.4 cm. Several fibroids are seen includin.3 x 1.1 x 1.3 cm anterior intramural fibroid, 0.6 x 0.5 x 0.7 cm anterior intramural fibroid and 1.5 x 1.3 x 1.5 cm posterior intramural fibroid that abuts the endometrial stripe. The endometrial thickness is 0.6 cm. Adnexa: Both ovaries are visualized. There is normal color flow to the adnexa. There is no ovarian torsion. There is no pelvic ascites or fluid collection. Right ovary measures 2.4 x 1.9 x 1.5 cm. Volume 3.6 mL. Left ovary measures 3.0 x 0.9 x 2.2 cm. Volume 3.1 mL. US/US pelvic and transvaginal IMPRESSION: 1. Several uterine fibroids including a 1.5 cm posterior intramural fibroid which abuts the endometrial stripe. 2. Normal ovaries.
== END 2024-03-23 12:35 | disposition home or self-care (01) ==
LOC: HO.US 12:34
PROVIDERS: PCP Internal Medicine; Visit Provider Obstetrics & Gynecology
DX: N93.9 Abnormal uterine and vaginal bleeding, unspecified (principal); Z20.2 Contact with and (suspected) exposure to infections with a predominantly sexual mode of transmission
CPT/HCPCS: 0353U; 58100; 76830; 76856; 81025; 83001; 83002; 84146; 84443; 84702; 85027; 88305; 99212

== ENCOUNTER 2024-03-23 13:34 | Outpatient (AMB) | payer MEDICARE, MEDICAID, BC, SELFPAY ==
--- NOTE | 2024-03-23 13:40 | MHC.OFFVIS ---
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 Last mammogram was in 03/24 was BI-RADS 1, last co testing was in 11/21 was negative. Pelvic ultrasound done today, results are still pending but unofficial review showed 3 myomas: one measuring 1.3 cm, the other myoma measures 0.7 cm and a 3rd myoma measuring 1.5 cm . [facility] Medical History Pre-op evaluation Hypovitaminosis D Headache Fibromyalgia Right hip pain Left hip pain Insomnia Obese Back pain Surgical History History of abdominoplasty H/O lumbar discectomy Family History Father Diabetes Hypertension Mother Diabetes Hypertension Family/Other Mental health disorder Sister Lupus (systemic lupus erythematosus) Brother Colon cancer Social History Household Members: Significant Other and Children Housing: House Alcohol intake: never Patient Tobacco Use Status: Never used Tobacco e-Cigarette/Vaping Use: Never Used Second Hand Smoke Exposure: No service: No Current occupational status: unemployed Current occupational exposures/hazards: No Female Reproductive History Menstrual Age of Menarche: 11 Date of last menstrual period: 03/26/24 Review of Systems Const All systems reviewed & are unremarkable except as noted in HPI and below Physical Exam Vital Signs: Last Vital Signs BP 114/70 03/23/24 13:49 BMI result Body Mass Index 32.8 General: Yes no CVA tenderness External Female Exam: normal external appearance and normal appearance of the urethra Speculum Exam - Vagina: normal appearance of the vagina, normal palpation, no lesions and no masses Speculum Exam - Cervix: normal appearance of the cervix, normal palpation, no lesions, no masses, nontender and Other cervical findings present (No evidence of active vaginal bleeding) Bimanual exam- vagina & uterus: normal bimanual exam, normal palpation, uterine size normal, normal palpation, uterine shape normal, No Cervical tenderness present and non-tender Bimanual Exam- Adnexa, other: normal adnexae Back/Spine/Pelvis Back: no CVA tenderness Office Procedures Endometrial Biopsy Details: The patient was counseled regarding the indication and benefits of endometrial sampling to rule out endometrial pathology including not limited to endometrial hyperplasia or endometrial cancer and others; The alternatives (Either do nothing vs. hysteroscopy D&C) & the risks were discussed with the patient including but not limited: pain, uterine perforation, bleeding, infection, possible injury to bladder, bowel, ureter, possible need for blood transfusion with all its possible risks. The patient verbalized understanding all questions answered and signed consent. Urine test done in the office was negative The patient was placed into the dorsal lithotomy position; a speculum was inserted in the vagina. Using aseptic technique for the procedure, the cervix was cleansed with Betadine. The anterior lip of the cervix was grasped with a single tooth tenaculum. The uterus was sounded to 7 cm with a 4 mm Pipelle was used. Tissues samples were obtained and placed in formalin, in a patient labeled container and sent to the pathology department. At the end of the procedure, there was minimal bleeding noted The patient tolerated the procedure well and was discharged in good condition with the following instructions: Nothing in the vagina until the bleeding stops. No sex until the bleeding stops, to call if any of the following occurs: fever (>100.4), flu-like symptoms, abdominal pain, heavy bleeding, four smelling vaginal discharge. The patient was instructed to schedule a Follow up appointment in 2 weeks to discuss pathology results of the biopsy and treatment options. This note was generated with a voice recognition program. Some errors may have been overlooked during the review of this note. Sometimes these errors may affect the content or meaning of a given sentence. [id number] Biopsy Results AMB Test Urine AMB Test Urine Negative Last Edit by DEON Wolfe on 03/23/24 13:52 Results Reviewed Results Reviewed: Laboratory Last Values Tst Clinic Negative 03/23/24 13:52 Assessment & Plan Assessment & Plan (1) Abnormal uterine bleeding (AUB): Code(s): N93.9 - Abnormal uterine and vaginal bleeding, unspecified Category: Medical Plan: Urine test done in the office was negative. GC and chlamydia taken, CBC stat ordered, TSH, prolactin, FSH/LH, HCG, screening mammogram and pelvic ultrasound ordered. Discussed with the patient the different causes of abnormal bleeding including thyroid disorders, uterine and ovarian pathology, endometrial hyperplasia, carcinoma and other potential causes. Discussed with the patient the work up including CBC (to r/o anemia), TSH, pelvic Ultrasound, endometrial biopsy to r/o endometrial pathology. EMB done, see procedure note All questions answered and the patient verbalized understanding. Provera 10 mg p.o. q.d. sent to the patient's pharmacy, Instructed the patient to call or go to emergency room in case of persistent or heavy bleeding and to schedule a 2 week follow-up appointment Orders: Orders Lutenizing Hormone Today N93.9 - Abnormal uterine and vaginal bleeding, unspecified CT NG by PCR Today N93.9 - Abnormal uterine and vaginal bleeding, unspecified Surgical Today N93.9 - Abnormal uterine and vaginal bleeding, unspecified AMB HCG Urine Test Today N93.9 - Abnormal uterine and vaginal bleeding, unspecified Follicle Stimulating Hormone Today N93.9 - Abnormal uterine and vaginal bleeding, unspecified MM screening mammo BI Today Z12.31 - Encounter for screening mammogram for malignant neoplasm of breast AMB Endometrial Biopsy Today N93.9 - Abnormal uterine and vaginal bleeding, unspecified Medications: New medroxyprogesterone (Provera) start Provera 1 tablet daily 10 mg PO DAILY 30 days 30 tabs 0RF
[2024-03-23 13:49] VITALS: BP 114/70; BMI 32.8
== END 2024-03-23 15:59 | disposition home or self-care (01) ==
PROVIDERS: PCP Internal Medicine; Visit Provider Obstetrics & Gynecology
DX: N93.9 Abnormal uterine and vaginal bleeding, unspecified (principal)
CPT/HCPCS: 58100; 99213

== ENCOUNTER 2024-03-23 14:07 | Outpatient (REF) | payer MEDICARE, MEDICAID, SELFPAY ==
[2024-03-23 14:38] LABS: Hemoglobin 12.9 g/dl (12.0-16.0); Mean Corpuscular HGB Conc 32.3 g/dl (31.0-35.0); Mean Corpuscular Volume 77.7 fL (80.0-98.0); Mean Platelet Volume 10.5 fL (9.4-12.3); Platelet Count 311 X10*3/uL (160-400); Red Blood Count 5.15 X10*6/uL (4.20-5.50); White Blood Count 5.6 X10*3/uL (4.8-10.8)
[2024-03-23 15:12] LABS: HCG Quantitative < 2 mIU/mL; TSH reflex Free T4 1.27 uIU/mL (0.32-4.0)
[2024-03-24 06:50] LABS: CT PCR NOT DETECTED (Not Detect.); NG PCR NOT DETECTED (Not Detect.)
[2024-03-24 09:53] LABS: Follicle Stimulating Hormone 71.7 mIU/mL; Lutenizing Hormone 29.7 mIU/mL; Prolactin 4.7 ng/mL
== END 2024-03-23 14:08 | disposition home or self-care (01) ==
LOC: HO.LAB 14:07
PROVIDERS: Visit Provider Obstetrics & Gynecology
DX: Z13.89 Encounter for screening for other disorder (principal)
CPT/HCPCS: 0353U; 83001; 83002; 84146; 84443; 84702; 85027; 88305

== ENCOUNTER 2024-03-23 14:07 | Outpatient (REF) | payer MEDICARE, MEDICAID, SELFPAY | END 2024-03-23 14:08 | disposition home or self-care (01) | LOC: HO.LNP 14:07 | PROVIDERS: Visit Provider Obstetrics & Gynecology | DX: Z13.89 Encounter for screening for other disorder (principal) ==

== ENCOUNTER 2024-04-14 11:22 | Outpatient (REF) | payer MEDICARE, MEDICAID, SELFPAY ==
[2024-04-14 11:47] LABS: MANUAL DIFF FLAG NO
[2024-04-14 12:10] LABS: Basophils Percent Auto 0.4 % (0-2); Eosinophils Absolute Auto 0.3 X10*3/uL (0.0-0.4); Eosinophils Percent Auto 6.7 % (0-4); Hemoglobin 12.4 g/dl (12.0-16.0); Imm Gran Abs Auto 0.01 X10*3/uL (0.00-0.03); Imm Gran Pct Auto 0.2 % (0.0-0.4); Lymphocytes Absolute Auto 1.8 X10*3/uL (1.2-4.9); Lymphocytes Percent Auto 35.6 % (20-40); Mean Corpuscular HGB Conc 31.8 g/dl (31.0-35.0); Mean Corpuscular Hemoglobin 25.1 pg (27.0-33.0); Mean Corpuscular Volume 78.9 fL (80.0-98.0); Mean Platelet Volume 10.3 fL (9.4-12.3); Monocytes Absolute Auto 0.3 X10*3/uL (0.1-1.2); Monocytes Percent Auto 5.1 % (2-11); Neutrophils Absolute Auto 2.7 x10*3/uL (2.0-8.3); Platelet Count 345 X10*3/uL (160-400); Red Blood Count 4.94 X10*6/uL (4.20-5.50); Red Cell Distribution Width 14.6 % (11.0-16.0); White Blood Count 5.1 X10*3/uL (4.8-10.8)
[2024-04-14 12:56] LABS: Alanine Aminotransferase 18 U/L (0-31); Albumin Level 4.4 g/dL (3.5-5.0); Alkaline Phosphatase 63 U/L (39-117); Anion Gap 13 (12-20); Aspartate Amino Transferase 18 U/L (5-31); Bilirubin Total 0.3 mg/dL (0.0-1.0); Blood Urea Nitrogen 11 mg/dL (9-16); Calcium 9.3 mg/dL (8.4-10.2); Carbon Dioxide 26 mmol/L (22-29); Chloride 106 mmol/L (96-108); Cholesterol 200 mg/dL (<200); Estimated Glomerular Filt Rate > 60; Glucose Random 97 mg/dL (60-115); HDL Cholesterol 42 mg/dL (>40); LDL Cholesterol Calculated 131 mg/dL (<100); Potassium 3.9 mmol/L (3.3-5.1); Sodium 141 mmol/L (135-145); Total Protein 7.5 g/dL (6.5-8.0); Triglycerides 135 mg/dL (<150)
[2024-04-14 13:15] LABS: Thyroid Stimulating Hormone 0.38 uIU/mL (0.32-4.0)
[2024-04-14 13:21] LABS: Osmolality Urine 604 mosm/kg (373-1093)
[2024-04-14 13:21] LABS: Osmolality, Serum 294 mosm/kg (281-305)
== END 2024-04-14 11:23 | disposition home or self-care (01) ==
LOC: HO.LAB 11:22
PROVIDERS: PCP Internal Medicine; Visit Provider Internal Medicine
DX: I10 Essential (primary) hypertension (principal); R00.2 Palpitations; R35.89 Other polyuria; R63.1 Polydipsia
CPT/HCPCS: 36415; 80053; 80061; 83930; 83935; 84443; 85025

== ENCOUNTER 2024-04-29 13:54 | Outpatient (AMB) | payer MEDICARE, BC, MEDICAID, SELFPAY ==
--- NOTE | 2024-04-29 14:05 | A.OFFVIS_ITS ---
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 The following workup was done.: H&H= 12.4/39 TSH, prolactin, hCG, GC and chlamydia were negative. FSH/LH in the menopausal range Endometrial biopsy pathology showed the following: Scant benign endometrium with extensive glandular and stromal breakdown, and abundant blood; no atypia or carcinoma Co testing was done in 11/21 was negative. Mammogram was done in 03/24 and was BI-RADS 1 Pelvic ultrasound showed the following: Uterus: The uterus is anteverted and measures 8.9 x 4.5 x 5.4 cm. Several fibroids are seen includin.3 x 1.1 x 1.3 cm anterior intramural fibroid, 0.6 x 0.5 x 0.7 cm anterior intramural fibroid and 1.5 x 1.3 x 1.5 cm posterior intramural fibroid that abuts the endometrial stripe. The endometrial thickness is 0.6 cm. Adnexa: Both ovaries are visualized. There is normal color flow to the adnexa. There is no ovarian torsion. There is no pelvic ascites or fluid collection. Right ovary measures 2.4 x 1.9 x 1.5 cm. Volume 3.6 mL. Left ovary measures 3.0 x 0.9 x 2.2 cm. Volume 3.1 mL. [facility] Medical History Pre-op evaluation Hypovitaminosis D Headache Fibromyalgia Right hip pain Left hip pain Insomnia Obese Back pain Surgical History History of abdominoplasty H/O lumbar discectomy Family History Father Diabetes Hypertension Mother Diabetes Hypertension Family/Other Mental health disorder Sister Lupus (systemic lupus erythematosus) Brother Colon cancer Social History Household Members: Significant Other and Children Housing: House Alcohol intake: never Patient Tobacco Use Status: Never used Tobacco e-Cigarette/Vaping Use: Never Used Second Hand Smoke Exposure: No service: No Current occupational status: unemployed Current occupational exposures/hazards: No Female Reproductive History Menstrual Age of Menarche: 11 Review of Systems Const All systems reviewed & are unremarkable except as noted in HPI and below Reports as per HPI and Reports no additional complaints GI Reports no additional complaints Reports no additional complaints Physical Exam Vital Signs: Last Vital Signs BP 122/76 04/29/24 14:07 BMI result Body Mass Index 32.4 Assessment & Plan Assessment & Plan (1) Abnormal uterine bleeding (AUB): Code(s): N93.9 - Abnormal uterine and vaginal bleeding, unspecified Category: Medical Plan: Discussed with the patient the results of the work up done and options of treatment including cyclic Provera, Mirena IUD. All pros, cons, risks and benefits if each option was discussed with the patient and the patient decided to think about it and get back to us. All questions answered the patient verbalized understanding. (2) Uterine myoma: Code(s): D25.9 - Leiomyoma of uterus, unspecified Category: Medical Plan: Discussed with the patient the findings on pelvic ultrasound & the risk of myosarcoma; discussed with the patient the options of treatment including expectant management versus hysterectomy; the pros and cons, risks benefits of each approach were discussed with the patient including the fact that in cases of myosarcoma, surgical treatment can lead to early diagnosis and positively affects the prognosis; after further discussion, the patient decided to proceed with expectant management. Will repeat pelvic ultrasound periodically. Instructions given to patient to call in case any of the following occurs: pressure symptoms, abnormal uterine bleeding, pelvic pain; and to schedule a future office follow-up appointment for reassessment and to order a repeat ultrasound . All questions answered, the patient verbalized understanding and agreed with the plan . Medications: Discontinued medroxyprogesterone (Provera) start Provera 1 tablet daily Discontinued Reason: Patient no longer taking 10 mg PO DAILY 30 days 90 tabs 0RF Coding Level of Care Code Est Pt Level 3 (14893) Diagnoses Abnormal uterine bleeding (AUB) N93.9 Uterine myoma D25.9
[2024-04-29 14:07] VITALS: BP 122/76; BMI 32.4
== END 2024-04-29 14:17 | disposition home or self-care (01) ==
LOC: HO.HWS 13:54
PROVIDERS: PCP Internal Medicine; Visit Provider Obstetrics & Gynecology
DX: N93.9 Abnormal uterine and vaginal bleeding, unspecified (principal); D25.9 Leiomyoma of uterus, unspecified
CPT/HCPCS: 99213

== ENCOUNTER → 2024-04-29 13:54 | Outpatient (BNVA) | payer MEDICARE, BC, MEDICAID, SELFPAY | PROVIDERS: PCP Internal Medicine; Visit Provider Obstetrics & Gynecology | DX: N93.9 Abnormal uterine and vaginal bleeding, unspecified (principal); D25.9 Leiomyoma of uterus, unspecified | CPT/HCPCS: 99212 ==

== ENCOUNTER 2024-05-20 11:46 | Outpatient (AMB) | payer MEDICARE, MEDICAID, BC, SELFPAY ==
[2024-05-20 11:42] VITALS: BP 120/92; PULSE 68; O2SAT 96; BMI 34.9
--- NOTE | 2024-05-20 11:42 | HO.NEPHOV ---
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 She has been referred for for polyuria and polydipsia and to rule out diabetes insipidus. She tells me that she has been drinking plenty of water because she is thirsty. And she also urinates quite frequently few times at night as well. She has been to the ER for increased urination in the past. Lab results from the past did not reveal any hypernatremia or hyponatremia. Urine specific gravity was 1.019. Renal function was normal with a serum creatinine of 0.6-0.97 mg/dL. She has not been on any diuretics. No history of taking lithium in the past. She denies taking any caffeinated drinks or alcohol. Her sister has been diagnosed with diabetes insipidus. She borrowed a desmopressin pill from her sister and she found that the urine output decreased and she was able to sleep through the night. [facility] Medical History Pre-op evaluation Hypovitaminosis D Headache Fibromyalgia Right hip pain Left hip pain Insomnia Obese Back pain Surgical History History of abdominoplasty H/O lumbar discectomy Family History Father Diabetes Hypertension Mother Diabetes Hypertension Family/Other Mental health disorder Sister Lupus (systemic lupus erythematosus) Brother Colon cancer Social History Household Members: Significant Other and Children Housing: House Alcohol intake: never Patient Tobacco Use Status: Never used Tobacco e-Cigarette/Vaping Use: Never Used Second Hand Smoke Exposure: No service: No Current occupational status: unemployed Current occupational exposures/hazards: No Female Reproductive History Menstrual Age of Menarche: 11 Review of Systems Const Denies anorexia, Denies fever(s) and Denies weakness Eyes Denies blurry vision Card Denies no additional complaints and Denies dyspnea Resp Reports no additional complaints, Reports cough and Denies dyspnea GI Denies melena and Denies diarrhea Denies hematuria Musc Denies tingling Skin/Breast Denies rash Neuro Denies focal weakness, Denies tingling, Denies tremor(s) and Denies weakness Physical Exam Vital Signs: Last Vital Signs Pulse 68 05/20/24 11:42 BP 120/92 H 05/20/24 11:42 Pulse Ox 96 05/20/24 11:42 Oxygen Delivery Method Room Air 05/20/24 11:42 BMI result Body Mass Index 34.9 Const General: comfortable; No acute distress Orientation/consciousness: patient oriented x3 Eyes General: appearance normal, both eyes and all related structures Visual Boss: normal visual boss by confrontation Neck Neck: Yes supple and Yes no JVD Resp Effort & Inspection: normal respiratory effort and respiratory effort not decreased Auscultation: rhonchi Cardio Palpation: no palpable S3 and no palpable S4 Heart sounds: no rubs GI Inspection: Yes normal to inspection Palpation (GI): Soft to palpation Percussion: Yes normal to percussion Auscultation: normal bowel sounds General: Yes no CVA tenderness Back/Spine/Pelvis Back: no CVA tenderness Skin General skin exam: no petechiae and no purpura Neuro General: patient oriented x3 and no focal motor deficits Extrem General: No clubbing and No edema Results Reviewed Nephrology Results: Hgb 12.4 g/dl (12.0-16.0) 04/14/24 WBC 5.1 X10*3/uL (4.8-10.8) 04/14/24 Plt Count 345 X10*3/uL (160-400) 04/14/24 Sodium 141 mmol/L (135-145) 04/14/24 Potassium 3.9 mmol/L (3.3-5.1) 04/14/24 Chloride 106 mmol/L (96-108) 04/14/24 Carbon Dioxide 26 mmol/L (22-29) 04/14/24 BUN 11 mg/dL (9-16) 04/14/24 Creatinine 0.67 mg/dL (0.5-1.4) 04/14/24 Calcium 9.3 mg/dL (8.4-10.2) 04/14/24 Assessment & Plan Assessment & Plan (1) Polyuria: Code(s): R35.89 - Other polyuria Category: Medical Plan . 48-year-old woman with polyuria and polydipsia with essentially normal renal function and normal serum electrolytes. Diabetes insipidus should be ruled out. Differential diagnosis would include primary polydipsia. I have initiated a workup including Twenty-four urine collection for volume, sodium and creatinine. Spot urine for osmolality. We will check calcium Until results are available I have encouraged her to stay on a low-sodium diet. Encouraged her to keep drinking fluids especially in this hot weather to avoid dehydration. I have also advised her not to take desmopressin from her sister or take any other medication that has not been prescribed until we have a definite diagnosis. Coding Level of Care Code New Pt Level 4 (26797) Diagnoses Polyuria R35.89
== END 2024-05-20 12:14 | disposition home or self-care (01) ==
PROVIDERS: PCP Internal Medicine; Referring Provider Internal Medicine; Visit Provider Internal Medicine Hypertension Specialist
DX: R35.89 Other polyuria (principal)
CPT/HCPCS: 99204

== ENCOUNTER → 2024-05-20 11:46 | Outpatient (BNVA) | payer MEDICARE, BC, MEDICAID, SELFPAY | PROVIDERS: PCP Internal Medicine; Referring Provider Internal Medicine; Visit Provider Internal Medicine Hypertension Specialist | DX: R35.89 Other polyuria (principal) | CPT/HCPCS: 99202 ==

== ENCOUNTER 2024-05-22 08:22 | Outpatient (REF) | payer MEDICARE, MEDICAID, SELFPAY ==
[2024-05-22 09:04] LABS: Hematocrit 39.2 % (37.0-47.0); Hemoglobin 12.7 g/dl (12.0-16.0); Mean Corpuscular HGB Conc 32.4 g/dl (31.0-35.0); Mean Corpuscular Hemoglobin 25.3 pg (27.0-33.0); Mean Corpuscular Volume 78.2 fL (80.0-98.0); Mean Platelet Volume 10.9 fL (9.4-12.3); Platelet Count 276 X10*3/uL (160-400); Red Blood Count 5.01 X10*6/uL (4.20-5.50); Red Cell Distribution Width 14.5 % (11.0-16.0); White Blood Count 4.6 X10*3/uL (4.8-10.8)
[2024-05-22 09:41] LABS: Appearance Urine Clear; Color Urine Yellow; Glucose Urine UA Negative (Negative); Leukocyte Esterase Urine Small (1+) (Negative); Nitrite Urine Negative (Negative); UMIC TRIGGER UA YES; Urine Blood Negative (Negative); Urine Ketones Negative (Negative); Urine Protein Negative (Neg-Trace)
[2024-05-22 09:45] LABS: Parathyroid Hormone Intact 108.1 pg/mL (8.7-77.1)
[2024-05-22 09:50] LABS: Alanine Aminotransferase 17 U/L (0-31); Albumin Level 4.3 g/dL (3.5-5.0); Alkaline Phosphatase 66 U/L (39-117); Anion Gap 12 (12-20); Aspartate Amino Transferase 20 U/L (5-31); Bilirubin Total 0.3 mg/dL (0.0-1.0); Blood Urea Nitrogen 13 mg/dL (9-16); Calcium 9.5 mg/dL (8.4-10.2); Carbon Dioxide 26 mmol/L (22-29); Chloride 107 mmol/L (96-108); Estimated Glomerular Filt Rate > 60; Glucose Random 109 mg/dL (60-115); Potassium 4.2 mmol/L (3.3-5.1); Sodium 141 mmol/L (135-145); Total Protein 7.3 g/dL (6.5-8.0)
[2024-05-22 10:10] LABS: Creatinine, mg/dL 120.48
[2024-05-22 10:11] LABS: Creatinine Urine 129.19 mg/dL
[2024-05-22 10:16] LABS: Osmolality Urine 794 mosm/kg (373-1093)
[2024-05-22 10:18] LABS: Bacteria Urine None Seen (None Seen); Hyaline Casts Urine 0-2 /LPF (0-2); RBC Urine 0-2 /HPF (0-2); WBC Urine 0-5 /HPF (0-5)
[2024-05-22 10:40] LABS: Osmolality, Serum 292 mosm/kg (281-305)
[2024-05-22 10:41] LABS: Creatinine, 24Hr Urine 1.5 G/Day (1.0-2.0); Total Volume 24 Hour Urine 1250 mL
== END 2024-05-22 08:23 | disposition home or self-care (01) ==
LOC: HO.LAB 08:22
PROVIDERS: Internal Medicine Hypertension Specialist; PCP Internal Medicine; Visit Provider Psychiatry & Neurology Neurology
DX: R35.89 Other polyuria (principal)
CPT/HCPCS: 36415; 80053; 81001; 82570; 83930; 83935; 83970; 84300; 85027

== ENCOUNTER 2024-06-05 12:03 | Outpatient (AMB) | payer MEDICARE, MEDICAID, BC, SELFPAY ==
--- NOTE | 2024-06-05 12:04 | HO.NEPHOV ---
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 She has been referred for for polyuria and polydipsia and to rule out diabetes insipidus. She tells me that she has been drinking plenty of water because she is thirsty. And she also urinates quite frequently few times at night as well. She has been to the ER for increased urination in the past. Lab results from the past did not reveal any hypernatremia or hyponatremia. Urine specific gravity was 1.019. Renal function was normal with a serum creatinine of 0.6-0.97 mg/dL. She has not been on any diuretics. No history of taking lithium in the past. She denies taking any caffeinated drinks or alcohol. Her sister has been diagnosed with diabetes insipidus. She borrowed a desmopressin pill from her sister and she found that the urine output decreased and she was able to sleep through the night. 06/05/24 No new issues. No further polyuria PFSH Medical History Pre-op evaluation Hypovitaminosis D Headache Fibromyalgia Right hip pain Left hip pain Insomnia Obese Back pain Surgical History History of abdominoplasty H/O lumbar discectomy Family History Father Diabetes Hypertension Mother Diabetes Hypertension Family/Other Mental health disorder Sister Lupus (systemic lupus erythematosus) Brother Colon cancer Social History Household Members: Significant Other and Children Housing: House Alcohol intake: never Patient Tobacco Use Status: Never used Tobacco e-Cigarette/Vaping Use: Never Used Second Hand Smoke Exposure: No service: No Current occupational status: unemployed Current occupational exposures/hazards: No Female Reproductive History Menstrual Age of Menarche: 11 Physical Exam Vital Signs: Last Vital Signs Pulse 69 06/05/24 12:05 BP 104/80 06/05/24 12:05 Pulse Ox 96 06/05/24 12:05 Oxygen Delivery Method Room Air 06/05/24 12:05 BMI result Body Mass Index 35.2 Const General: comfortable; No acute distress Orientation/consciousness: patient oriented x3 Eyes General: appearance normal, both eyes and all related structures Visual Boss: normal visual boss by confrontation Neck Neck: Yes supple and Yes no JVD Resp Effort & Inspection: normal respiratory effort and respiratory effort not decreased Auscultation: rhonchi Cardio Palpation: no palpable S3 and no palpable S4 Heart sounds: no rubs GI Inspection: Yes normal to inspection Palpation (GI): Soft to palpation Percussion: Yes normal to percussion Auscultation: normal bowel sounds General: Yes no CVA tenderness Back/Spine/Pelvis Back: no CVA tenderness Skin General skin exam: no petechiae and no purpura Neuro General: patient oriented x3 and no focal motor deficits Extrem General: No clubbing and No edema Results Reviewed Nephrology Results: Hgb 12.7 g/dl (12.0-16.0) 05/22/24 WBC 4.6 X10*3/uL (4.8-10.8) L 05/22/24 Plt Count 276 X10*3/uL (160-400) 05/22/24 Sodium 141 mmol/L (135-145) 05/22/24 Potassium 4.2 mmol/L (3.3-5.1) 05/22/24 Chloride 107 mmol/L (96-108) 05/22/24 Carbon Dioxide 26 mmol/L (22-29) 05/22/24 BUN 13 mg/dL (9-16) 05/22/24 Creatinine 0.68 mg/dL (0.5-1.4) 05/22/24 Calcium 9.5 mg/dL (8.4-10.2) 05/22/24 PTH Intact 108.1 pg/mL (8.7-77.1) H 05/22/24 Urine Protein Negative mg/dL (Neg-Trace) 05/22/24 Urine Creatinine 129.19 mg/dL 05/22/24 Assessment & Plan Assessment & Plan (1) Polyuria: Code(s): R35.89 - Other polyuria Category: Medical Plan . 48-year-old woman with polyuria and polydipsia with essentially normal renal function and normal serum electrolytes. Twenty-four urine collection for volume, sodium and creatinine were normal and no polyuria No evidence of Diabetes insipidus Coding Level of Care Code Est Pt Level 4 (75833) Diagnoses Polyuria R35.89
[2024-06-05 12:05] VITALS: BP 104/80; PULSE 69; O2SAT 96; BMI 35.2
== END 2024-06-05 12:14 | disposition home or self-care (01) ==
PROVIDERS: PCP Internal Medicine; Visit Provider Internal Medicine Hypertension Specialist
DX: R35.89 Other polyuria (principal)
CPT/HCPCS: 99214

== ENCOUNTER → 2024-06-05 12:03 | Outpatient (BNVA) | payer MEDICARE, BC, MEDICAID, SELFPAY | PROVIDERS: PCP Internal Medicine; Visit Provider Internal Medicine Hypertension Specialist | DX: R35.89 Other polyuria (principal); R63.1 Polydipsia | CPT/HCPCS: 99212 ==

== ENCOUNTER → 2024-07-03 10:38 | Outpatient (BNVA) | payer MEDICARE, MEDICAID, SELFPAY | PROVIDERS: PCP Internal Medicine; Visit Provider Advanced Practice Midwife ==

== ENCOUNTER → 2024-07-08 11:46 | Outpatient (BNVA) | payer MEDICARE, MEDICAID, SELFPAY | PROVIDERS: PCP Internal Medicine; Visit Provider Physician Assistant Surgical ==

== ENCOUNTER 2024-08-10 08:03 | Outpatient (AMB) | payer MEDICARE, MEDICAID, BC, SELFPAY ==
--- NOTE | 2024-08-10 13:07 | MHC.OFFVISWM ---
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 [employer]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[employer]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[employer] BMI 35.8: Details: Start time: 1pm, End time: 1.38pm ?I spent 33 minutes speaking with the patient on the phone plus an additional 5 minutes reviewing and updating records for a total of 38 minutes HPI Comments Details: Previous weight loss efforts: self diets Wakes up: 6am, Sleeps: 3am, Takes nap in the afternoon Breakfast: skips Lunch: 11.30am (strawberries, bananas, pancakes or eggs) Dinner: 4pm (rice and pork chops, pasta) Snacks: 1pm (berries or chocolate, or banana), 1-2 times after dinner (cake) Exercise: none Fluids: Coffee: none, Tea: none, Soda: 4/wk (Regular Coke), juice (orange juice daily), ETOH: none PFSH Medical History (Updated 08/10/24 @ 13:30 by Jimmy Henry MD) Asthma GERD (gastroesophageal reflux disease) Hypertension BMI 35.0-35.9,adult Pre-op evaluation Hypovitaminosis D Headache Fibromyalgia Right hip pain Left hip pain Insomnia Obese Back pain Surgical History History of abdominoplasty H/O lumbar discectomy Family History (Updated 07/10/24 @ 08:16 by Beth Carrillo CMA) Father Diabetes Hypertension Mother Diabetes Hypertension Family/Other Mental health disorder Sister Lupus (systemic lupus erythematosus) Brother Colon cancer Social History Household Members: Significant Other and Children Housing: House Alcohol intake: never Patient Tobacco Use Status: Never used Tobacco e-Cigarette/Vaping Use: Never Used Second Hand Smoke Exposure: No service: No Current occupational status: unemployed Current occupational exposures/hazards: No Female Reproductive History Menstrual Age of Menarche: 11 Telehealth Telehealth Telehealth Platform: Telephone Location of provider rendering services: practice address Location of patient: address on file Patient Identification confirmed using: Name, : Yes Telehealth method: voice only Patient verbally consented to treatment: Yes Patient verbally consented to billing insurance company: Yes Patient informed of any privacy concerns related to visit: Yes Minutes spent on Phone/Video with Pt.: 38 Assessment & Plan Assessment & Plan (1) Obese: Code(s): E66.9 - Obesity, unspecified Category: Medical Qualifiers: Obesity classification: adult class 2 (BMI 35 - 39.9) Obesity type: due to excess calories Serious obesity comorbidity presence: with serious comorbidity Body mass index: BMI 35.0-35.9 Qualified Code(s): E66.01 - Morbid (severe) obesity due to excess calories; Z68.35 - Body mass index [BMI] 35.0-35.9, adult Plan: 1.? Plan for lap sleeve gastrectomy. If diaphragmatic or ventral hernias are present at time of surgery, these will be repaired laparoscopically as well. Risks and complications include possible conversion to an open procedure, anastomotic leak, bleeding requiring transfusion, small bowel obstruction, , DVT and pulmonary embolism, cardiac, or pulmonary complications, as terminal clerk complications such as anastomotic ulcer, insufficient weight loss and vitamin deficiencies. I emphasized the importance of close follow-up, adherence to instructions and good communication. 2.? Please buy a body composition scale and send me weight measurements as soon as possible and then once a week. 3. It is important to purchase a stationary bike, elliptical or treadmill at home that can track calories before the surgery date 4.?It is important of avoiding and for at least 18 months postoperatively and has been discussed at the infosession. 5. To be scheduled for EGD due to the history of GERD. The possibility of biopsies was discussed. Patient needs to avoid use of NSAIDs and aspirin for 1 week prior to EGD. Risks of perforation and bleeding was discussed with the patient. This will be an outpatient procedure with IV sedation. Orders: Orders Insulin Today E66.9 - Obesity, unspecified, I10 - Essential (primary) hypertension, J45.909 - Unspecified asthma, uncomplicated, K21.9 - Gastro-esophageal reflux disease without esophagitis Hemoglobin A1c Today E66.9 - Obesity, unspecified, I10 - Essential (primary) hypertension, J45.909 - Unspecified asthma, uncomplicated, K21.9 - Gastro-esophageal reflux disease without esophagitis IRON PROFILE Today E66.9 - Obesity, unspecified, I10 - Essential (primary) hypertension, J45.909 - Unspecified asthma, uncomplicated, K21.9 - Gastro-esophageal reflux disease without esophagitis C Reactive Protein Today E66.9 - Obesity, unspecified, I10 - Essential (primary) hypertension, J45.909 - Unspecified asthma, uncomplicated, K21.9 - Gastro-esophageal reflux disease without esophagitis Vitamin A Today E66.9 - Obesity, unspecified, I10 - Essential (primary) hypertension, J45.909 - Unspecified asthma, uncomplicated, K21.9 - Gastro-esophageal reflux disease without esophagitis Vitamin D 25-OH Total Today E66.9 - Obesity, unspecified, I10 - Essential (primary) hypertension, J45.909 - Unspecified asthma, uncomplicated, K21.9 - Gastro-esophageal reflux disease without esophagitis ECG 12 lead EKG Today E66.9 - Obesity, unspecified, I10 - Essential (primary) hypertension, J45.909 - Unspecified asthma, uncomplicated, K21.9 - Gastro-esophageal reflux disease without esophagitis FL upper GI w air Today E66.9 - Obesity, unspecified, I10 - Essential (primary) hypertension, J45.909 - Unspecified asthma, uncomplicated, K21.9 - Gastro-esophageal reflux disease without esophagitis H Pylori Breath Test Today E66.9 - Obesity, unspecified, I10 - Essential (primary) hypertension, J45.909 - Unspecified asthma, uncomplicated, K21.9 - Gastro-esophageal reflux disease without esophagitis Complete Blood Count Auto Diff Today E66.9 - Obesity, unspecified, I10 - Essential (primary) hypertension, J45.909 - Unspecified asthma, uncomplicated, K21.9 - Gastro-esophageal reflux disease without esophagitis Lipid Panel Today E66.9 - Obesity, unspecified, I10 - Essential (primary) hypertension, J45.909 - Unspecified asthma, uncomplicated, K21.9 - Gastro-esophageal reflux disease without esophagitis Comprehensive Met. Panel Today E66.9 - Obesity, unspecified, I10 - Essential (primary) hypertension, J45.909 - Unspecified asthma, uncomplicated, K21.9 - Gastro-esophageal reflux disease without esophagitis Vitamin B12 and Folate Today E66.9 - Obesity, unspecified, I10 - Essential (primary) hypertension, J45.909 - Unspecified asthma, uncomplicated, K21.9 - Gastro-esophageal reflux disease without esophagitis Zinc Today E66.9 - Obesity, unspecified, I10 - Essential (primary) hypertension, J45.909 - Unspecified asthma, uncomplicated, K21.9 - Gastro-esophageal reflux disease without esophagitis Vitamin B1 Today E66.9 - Obesity, unspecified, I10 - Essential (primary) hypertension, J45.909 - Unspecified asthma, uncomplicated, K21.9 - Gastro-esophageal reflux disease without esophagitis TSH reflex Free T4 Today E66.9 - Obesity, unspecified, I10 - Essential (primary) hypertension, J45.909 - Unspecified asthma, uncomplicated, K21.9 - Gastro-esophageal reflux disease without esophagitis Ferritin Today E66.9 - Obesity, unspecified, I10 - Essential (primary) hypertension, J45.909 - Unspecified asthma, uncomplicated, K21.9 - Gastro-esophageal reflux disease without esophagitis US abdomen comp w elastography Today E66.9 - Obesity, unspecified, I10 - Essential (primary) hypertension, J45.909 - Unspecified asthma, uncomplicated, K21.9 - Gastro-esophageal reflux disease without esophagitis XR chest 2V Today E66.9 - Obesity, unspecified, I10 - Essential (primary) hypertension, J45.909 - Unspecified asthma, uncomplicated, K21.9 - Gastro-esophageal reflux disease without esophagitis Referrals Nutrition/Dietitian Referral E66.9 - Obesity, unspecified, I10 - Essential (primary) hypertension, J45.909 - Unspecified asthma, uncomplicated, K21.9 - Gastro-esophageal reflux disease without esophagitis Behavioral Health Referral E66.9 - Obesity, unspecified, I10 - Essential (primary) hypertension, J45.909 - Unspecified asthma, uncomplicated, K21.9 - Gastro-esophageal reflux disease without esophagitis
[2024-08-10 13:21] VITALS: BMI 35.8
== END 2024-08-10 13:39 | disposition home or self-care (01) ==
LOC: HO.HBS 08:03
PROVIDERS: PCP Internal Medicine; Visit Provider Surgery
DX: E66.01 Morbid (severe) obesity due to excess calories (principal); Z68.35 Body mass index [BMI] 35.0-35.9, adult
CPT/HCPCS: 99443

== ENCOUNTER → 2024-08-10 08:03 | Outpatient (BNVA) | payer MEDICARE, MEDICAID, SELFPAY | PROVIDERS: PCP Internal Medicine; Visit Provider Surgery ==

== ENCOUNTER 2024-08-20 08:14 | Outpatient (REF) | payer MEDICARE, BC, MEDICAID, SELFPAY ==
--- NOTE | ~2024-08-20 | XR_ITS ---
EXAMINATION: XR CHEST CLINICAL INFORMATION: E66.9 - Obesity, unspecified COMPARISON: 06/29/2009. TECHNIQUE: 2 views of the chest were obtained. FINDINGS: Cardiac, hilar, and mediastinal contours are normal. The lungs are clear bilaterally. There is no effusion or pneumothorax. No osseous or soft tissue abnormalities noted. XR/XR chest 2V IMPRESSION: Normal chest. Electronically signed by: Kalia Waller MD 10/30/2024 01:47 PM [facility]
--- NOTE | ~2024-08-20 | US_ITS ---
EXAMINATION: US COMPLETE ABDOMEN WITH LIVER ELASTOGRAPHY CLINICAL INFORMATION: Obesity, unspecified. COMPARISON: None available. TECHNIQUE: Real-time imaging of the abdominal viscera. Noninvasive ultrasound liver fibrosis assessment is performed using Madelyn ElastPQ point quantification shear wave elastography (pSWE) with a C5-2 MHz transducer. Multiple elastography samples are obtained. FINDINGS: PANCREAS: Normal. The visualized pancreatic head and body are normal in appearance. The remainder of the pancreas is obscured from visualization by the overlying bowel gas. ABDOMINAL AORTA: The proximal, middle, and distal aortic segments are normal in caliber. INFERIOR VENA CAVA: Visualized portions are normal. LIVER: Liver is enlarged measuring over 18 cm in length with increased echogenicity consistent with hepatic steatosis. No focal lesion or intrahepatic biliary duct dilatation. The right lobe measures 18 cm in length. The left lobe measures 9.1 cm in length. Portal flow is towards the liver (hepatopedal). Shear wave liver elastography median stiffness is 1.40 m/s (reference: normal median stiffness is 1.3 m/s or less). IQR/median stiffness to assess sampling precision is 0.13 (reference: good quality data set is IQR/median stiffness of 0.15 or less). GALLBLADDER: Normal. The gallbladder is physiologically distended without evidence of stones, sludge, polyps, wall thickening or pericholecystic fluid. COMMON BILE DUCT: Normal in caliber measuring 0.4 cm in diameter. RIGHT KIDNEY: Normal. No hydronephrosis. No renal calculi or focal parenchymal lesions. The kidney measures 10.2 cm in maximum dimension. LEFT KIDNEY: Normal. No hydronephrosis. No renal calculi or focal parenchymal lesions. The kidney measures 10.9 cm in maximum dimension. SPLEEN: Normal. The spleen measures 11.8 cm in maximum dimension. FREE FLUID: None. US/US abdomen comp w elastography IMPRESSION: 1. Enlarged fatty liver 2. Liver elastography: In the absence of other known clinical signs, measurements rule out compensated advanced chronic liver disease. If there are known clinical signs, further testing may be needed for confirmation. REFERENCE: Society of Radiologists in Ultrasound Liver Stiffness Thresholds (2020): LIVER STIFFNESS THRESHOLDS: *Liver Stiffness equal or less than 1.3 m/s: High probability of being normal. *Liver Stiffness less than 1.7 m/s: In the absence of other known clinical signs, rules out compensated advanced chronic liver disease. *Liver Stiffness 1.7-2.1 m/s: Suggestive of compensated advanced chronic liver disease but need further test for confirmation. *Liver Stiffness over 2.1 m/s: Rules in compensated advanced chronic liver disease. *Liver Stiffness over 2.4 m/s: Suggestive of clinically significant portal hypertension. QUALITY OF DATA SET: *IQR/Median value equal or less than 0.15 implies a quality data set. *IQR/Median value over 0.15 implies a poor quality data set. SIGNIFICANT CHANGE FROM PRIOR EXAM: Significant change if liver stiffness measurement is 10% or greater from prior exam. OTHER CONSIDERATIONS: The stage of liver fibrosis may be overestimated in the setting of acute hepatitis, liver inflammation, elevated liver function tests, hepatic vascular congestion, obstructive cholestasis, non-fasting state, and infiltrative diseases such as amyloidosis and lymphoma. In some patients with NAFLD, the liver stiffness thresholds for compensated advanced chronic liver disease may be lower. In causes other than viral hepatitis and NAFLD, liver stiffness thresholds are not well established. Electronically signed by: Adin Bryson MD 08/26/2024 05:51 PM EDT
--- NOTE | 2024-08-20 08:19 | ECG_ITS ---
Test Reason : OBS Blood Pressure : / mmHG Vent. Rate : 077 BPM Atrial Rate : 077 BPM P-R Int : 170 ms QRS Dur : 082 ms QT Int : 358 ms P-R-T Axes : 058 017 013 degrees QTc Int : 405 ms Normal sinus rhythm Nonspecific T wave abnormality Abnormal ECG When compared with ECG of 30-MAY-2023 17:32, QT has shortened Referred By: Jimmy Henry Electronically Signed By:FRANCES LENZ
[2024-08-20 08:29] LABS: MANUAL DIFF FLAG NO
[2024-08-20 09:24] LABS: Basophils Percent Auto 0.6 % (0-2); Eosinophils Absolute Auto 0.4 X10*3/uL (0.0-0.4); Eosinophils Percent Auto 7.8 % (0-4); Hemoglobin 12.5 g/dl (12.0-16.0); Imm Gran Abs Auto 0.01 X10*3/uL (0.00-0.03); Imm Gran Pct Auto 0.2 % (0.0-0.4); Lymphocytes Absolute Auto 1.8 X10*3/uL (1.2-4.9); Lymphocytes Percent Auto 35.6 % (20-40); Mean Corpuscular HGB Conc 32.1 g/dl (31.0-35.0); Mean Corpuscular Hemoglobin 25.4 pg (27.0-33.0); Mean Corpuscular Volume 79.3 fL (80.0-98.0); Mean Platelet Volume 10.9 fL (9.4-12.3); Monocytes Absolute Auto 0.3 X10*3/uL (0.1-1.2); Monocytes Percent Auto 6.4 % (2-11); Neutrophils Absolute Auto 2.5 x10*3/uL (2.0-8.3); Neutrophils Percent Auto 49.4 % (45-73); Platelet Count 293 X10*3/uL (160-400); Red Blood Count 4.92 X10*6/uL (4.20-5.50); Red Cell Distribution Width 14.9 % (11.0-16.0)
[2024-08-20 10:13] LABS: Estimated Average Glucose 120 mg/dL; Hemoglobin A1c % 5.8 % (<6.0)
[2024-08-20 10:29] LABS: Alanine Aminotransferase 20 U/L (0-31); Albumin Level 4.3 g/dL (3.5-5.0); Alkaline Phosphatase 65 U/L (39-117); Anion Gap 10 (12-20); Aspartate Amino Transferase 29 U/L (5-31); Bilirubin Total 0.2 mg/dL (0.0-1.0); Blood Urea Nitrogen 7 mg/dL (9-16); C Reactive Protein 0.38 mg/dL (< or = 0.50); Calcium 9.2 mg/dL (8.4-10.2); Carbon Dioxide 29 mmol/L (22-29); Chloride 107 mmol/L (96-108); Cholesterol 180 mg/dL (<200); Estimated Glomerular Filt Rate > 60; Glucose Random 102 mg/dL (60-115); HDL Cholesterol 36 mg/dL (>40); Iron 50 mcg/dL (30-160); LDL Cholesterol Calculated 87 mg/dL (<100); Percent Iron Saturation 16 % (15-50); Potassium 3.9 mmol/L (3.3-5.1); Sodium 142 mmol/L (135-145); Total Iron Binding Capacity 322 mcg/dL (228-428); Total Protein 7.2 g/dL (6.5-8.0); Triglycerides 286 mg/dL (<150); Unsaturated Iron Binding 272 ug/dL
[2024-08-20 10:37] LABS: Ferritin 7 ng/mL (10-250); Insulin 17 uU/mL (2-29); TSH reflex Free T4 2.08 uIU/mL (0.32-4.0); Vitamin D 25-OH Total 15.1 ng/mL (>30)
[2024-08-20 10:46] LABS: Vitamin B12 177 pg/mL (200-900)
[2024-08-24 14:58] LABS: Zinc 65 mcg/dL (60-130)
[2024-08-25 18:18] LABS: Vitamin A 39 mcg/dL (38-98)
[2024-08-28 16:38] LABS: Vitamin B1 12 nmol/L (8-30)
== END 2024-08-20 08:15 | disposition home or self-care (01) ==
LOC: HO.US 08:14
PROVIDERS: PCP Internal Medicine; Visit Provider Surgery
DX: J45.909 Unspecified asthma, uncomplicated (principal); E66.9 Obesity, unspecified; K21.9 Gastro-esophageal reflux disease without esophagitis; I10 Essential (primary) hypertension; K76.0 Fatty (change of) liver, not elsewhere classified; Z13.1 Encounter for screening for diabetes mellitus
CPT/HCPCS: 36415; 71046; 76700; 76981; 80053; 80061; 82306; 82607; 82728; 82746; 83036; 83525; 83540; 84425; 84443; 84590; 84630; 85025; 86140; 93005

== ENCOUNTER → 2024-08-20 08:41 | Outpatient (BNV) | payer MEDICARE, BC, MEDICAID, SELFPAY | PROVIDERS: PCP Internal Medicine; Visit Provider Radiology Diagnostic Radiology | DX: E66.9 Obesity, unspecified (principal) | CPT/HCPCS: 71046 ==

== ENCOUNTER 2024-08-27 09:32 | Outpatient (REF) | payer MEDICARE, BC, MEDICAID, SELFPAY ==
--- NOTE | ~2024-08-27 | FL_ITS ---
EXAMINATION: XR FLUOROSCOPY UPPER GI WITH AIR CLINICAL INFORMATION: Preoperative evaluation prior to bariatric surgery. Cough. Choking episodes COMPARISON: None TECHNIQUE: Fluoroscopic air contrast upper GI examination was performed utilizing standard techniques with thin and thick barium and effervescent granules. Numerous spot images were obtained. FINDINGS: Dual and single contrast images of the esophagus demonstrate normal caliber, contour, and mucosal pattern. Mild cricopharyngeal achalasia is present. No evidence of stricture, mass, or ulcerations identified. Esophageal peristalsis was normal. On the fourth and final upright swallow with thick barium, there was gross tracheal aspiration observed down to the left mainstem bronchus. No further barium was administered to the patient. No gross evidence of hiatus hernia identified. Mild gastroesophageal reflux is seen in the distal esophagus. Limited dual contrast and single contrast images of the stomach demonstrated a grossly normal appearance. Evaluation of the gastric mucosa is limited due to poor coating of the barium. Contrast freely passed into the gastric antrum and duodenal bulb without delay. Single and air-contrast images of the duodenal bulb demonstrate no abnormality. The duodenal sweep has a normal appearance, course, and mucosal fold appearance. The imaged proximal jejunum has a normal fold pattern and caliber. FLUOROSCOPY TIME: 3 minutes 26 seconds Number of Spot Images: 12 Number of Cine: 11 DOSE AREA PRODUCT: 2235 uGy-m2 (microgray-meter squared) FL/FL upper GI w air IMPRESSION: 1. Gross tracheal aspiration observed down to the left mainstem bronchus. Examination was thus terminated. 2. Mild cricopharyngeal achalasia. 3. Limited examination due to gross aspiration and inability to administer additional contrast. Unable to assess esophageal motility and presence of hiatal hernia. 4. Mild gastroesophageal reflux. This procedure was performed by Drake Woods PA-C, and supervised by Dr. Waller Electronically signed by: Kalia Waller MD 08/27/2024 04:11 PM EDT
== END 2024-08-27 09:33 | disposition home or self-care (01) ==
LOC: HO.XRAY 09:32
PROVIDERS: PCP Internal Medicine; Visit Provider Surgery
DX: E66.9 Obesity, unspecified (principal); K21.9 Gastro-esophageal reflux disease without esophagitis
CPT/HCPCS: 74246

== ENCOUNTER → 2024-08-27 09:33 | Outpatient (BNV) | payer MEDICARE, MEDICAID, BC, SELFPAY | PROVIDERS: PCP Internal Medicine; Visit Provider Radiology Diagnostic Radiology | DX: Z01.818 Encounter for other preprocedural examination (principal); E66.9 Obesity, unspecified | CPT/HCPCS: 74246 ==

== ENCOUNTER → 2024-08-27 11:12 | Outpatient (AMB) | payer MEDICARE, MEDICAID, BC, SELFPAY ==
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
== END ==
PROVIDERS: PCP Internal Medicine; Visit Provider Counselor Mental Health
DX: F41.0 Panic disorder [episodic paroxysmal anxiety] (principal); F43.9 Reaction to severe stress, unspecified
CPT/HCPCS: 90837

== ENCOUNTER → 2024-09-24 10:03 | Outpatient (REF) | payer MEDICARE, BC, MEDICAID, SELFPAY ==
--- NOTE | 2024-09-24 10:10 | CA_ITS ---
Acquisition Time: 2024-09-24 10:12:17 Total Exercise Time: 00:05:36 Test Indications: Abnormal ECG Medications: ALBUTEROL GABAPENTIN HYDROXYZINE METOPROLOL Protocol: PRUDENCIO Max HR: 157 BPM 92% of Pred: 170 BPM Max BP: 182/088 mmHG Max Work Load: 7.0 METS Exercise stress test with exercise 5 min 36 sec of Prudencio protocol, achieving 92% MPHR, 7 METs, without anginal symtoms, without arrythmia, with elevated BP at baseline and normal response with exercise, wiithout EKG changes meetinf criteira for ischemia. Test reviewed with Dr Perez Referred By: iJmmy Henry Overread By: SABRINA ARNOLD
== END ==
LOC: HO.CARD 10:03
PROVIDERS: PCP Internal Medicine; Visit Provider Surgery
DX: R94.31 Abnormal electrocardiogram [ECG] [EKG] (principal)
CPT/HCPCS: 93017

== ENCOUNTER → 2024-09-24 10:10 | Outpatient (BNV) | payer MEDICARE, MEDICAID, BC, SELFPAY | PROVIDERS: PCP Internal Medicine; Visit Provider Nurse Practitioner Family | DX: R94.31 Abnormal electrocardiogram [ECG] [EKG] (principal) | CPT/HCPCS: 93016; 93018 ==

== ENCOUNTER → 2024-09-28 11:10 | Outpatient (REF) | payer MEDICARE, BC, MEDICAID, SELFPAY ==
--- NOTE | 2024-09-28 11:13 | CA_ITS ---
Transthoracic Echocardiogram Patient (Last, First, Middle): Erika Ding, Gender: Female Date of : 1975 Age: 49 Procedure Date: 09/28/2024 Procedure Type: Transthoracic Echocardiogram Location: OP Height: 160.02 cm Weight: 87.09 kg BSA: 1.90 m2 Heart Rate: bpm BP: 120 / 82 mmHg Assisted Living Director: [place] Referring MD: Jimmy Henry MD Symptoms: R94.31 - Abnormal electrocardiogram [ECG] [EKG] Study Quality: Fair/Contrast ECG Rhythm: Sinus Conclusions: - The left ventricular systolic function is normal. The calculated ejection fraction is 55% by biplane method. - No obvious valvular pathology seen on this study. Findings Procedure Information Contrast agent, definity, is being given per protocol without apparent complications. Left Ventricle Normal left ventricular cavity size. There is normal left ventricular wall thickness. The left ventricular systolic function is normal. The calculated ejection fraction is 55% by biplane method. There is no evidence of regional wall motion abnormalities. Diastolic function is normal for age. Right Ventricle Normal right ventricular cavity size and systolic function. Atria Both atria are normal in size. Aortic Valve There is a normal trileaflet aortic valve. There is no aortic valve stenosis. There is no aortic valve regurgitation. Mitral Valve The mitral valve appears normal. There is trace mitral valve regurgitation. There is no mitral valve stenosis. Pulmonic Valve The pulmonic valve is likely normal. Tricuspid Valve Normal tricuspid valve structure. There is trace tricuspid valve regurgitation. There is no evidence of pulmonary hypertension. Great Vessels The asc aorta is normal in size. Venous The inferior vena cava is normal in size and collapses greater than 50% with inspiration. Pericardium/Pleural There is no evidence of pericardial effusion. Prior Study Comparison No prior study available for comparison. Recommendations, Care & Conclusions No obvious valvular pathology seen on this study. Measurements 2D Linear Measurements IVSd: 1.01 0.6-0.9/0.6-1.0 cm LVIDd: 5.12 3.9-5.3/4.2-5.9 cm LVIDd Index: 2.69 2.4-3.2/2.2-3.1 cm/m2 LVIDs: 3.27 2.0-3.6 cm LVPWd: 0.90 0.7-1.1 cm LA Diam: 3.50 2.7-3.8/3.0-4.0 cm LAIDs Index: 1.84 1.5-2.3 cm/m2 LV Mass: 221.74 67-162/88-224 g LV Mass Index: 116.71 43-95/49-115 g/m2 LVOT Diam: 2.10 3.0+(-)1.3 cm 2D Systolic Function EF 4C: 55.00 >55% EF 2C: 56.90 >55% EF BiP: 55.00 >55% Mitral Valve MV VTI: 0.37 MV Pk Silverio: 1.21 MV Mn Silverio: 0.75 MV Pk Grad: 6.00 MV Mn Grad: 3.00 MV Pk E: 1.03 MV PK A: 0.90 MV Decel Time: 254.00 E/A: 1.10 E'Lateral: 8.16 E'Medial: 8.05 E/E' Med: 12.80 E/E' Lat: 12.60 PHT: 74.00 MVA PHT: 2.97 MVA Continuity: 1.94 Decel Dickinson: 4.07 Aortic Valve AoV Pk Silverio: 1.59 AoV Mn Silverio: 1.10 AoV VTI: 0.37 AoV Pk Grad: 10.00 Aov Mn Grad: 5.00 ABDIAS Cont.VTI: 1.95 LVOT LVOT Pk Silverio: 0.89 LVOT Mn Silverio: 0.58 LVOT VTI: 0.21 LVOT Pk Grad: 3.00 LVOT Mn Grad: 2.00 LVOT Diam: 2.10 LVOT Area: 3.46 Diastolic Function MV Pk E: 1.03 MV Pk A: 0.90 E/A: 1.10 E'Medial: 8.05 E/E' Med: 12.80 E' Laterial: 8.16 E/E' Lat: 12.60 Right Ventricle TAPSE (mm): 20.40 TVS' Silverio: 10.00 Tricuspid Valve RA Press: 3.00 Great Vessels Aorta Sinus of Valsalva: 3.21 2.0-3.5 cm Ao Asc: 3.10 2.1-3.4 cm Updated in Other Vendor System with Status of Final Evans Swift MD electronically signed on 09/29/2024 10:51:23 AM with status of Final
== END ==
LOC: HO.CARD 11:10
PROVIDERS: PCP Internal Medicine; Visit Provider Surgery
DX: R94.31 Abnormal electrocardiogram [ECG] [EKG] (principal)
CPT/HCPCS: 93306; Q9957

== ENCOUNTER → 2024-09-28 11:13 | Outpatient (BNV) | payer MEDICARE, MEDICAID, BC, SELFPAY | PROVIDERS: PCP Internal Medicine; Visit Provider Internal Medicine | DX: R94.31 Abnormal electrocardiogram [ECG] [EKG] (principal) | CPT/HCPCS: 93306 ==

== ENCOUNTER 2024-10-13 08:25 | Day surgery (SDC) | payer MEDICARE, BC, MEDICAID, SELFPAY ==
[2024-09-01 07:24] VITALS: BMI 35.8
--- NOTE | 2024-09-01 14:24 | HO.ANESPROP2 ---
Documented by User: Roxie Marquez NP 09/23/24 13:39 HPI - Anesthesia Eval Consult details Narrative: 48yo F for Upper Endoscopy, 10/13/24 PMFSH Active Problems Active Problems: All Active Problems Abnormal EKG (Acute) Vitamin B12 deficiency (Acute) Vitamin D deficiency (Acute) Asthma (Acute) GERD (gastroesophageal reflux disease) (Acute) Hypertension (Acute) BMI 35.0-35.9,adult (Acute) Polyuria (Acute) Uterine myoma (Acute) Abnormal uterine bleeding (AUB) (Acute) Right shoulder pain (Acute) Sacroiliac joint pain (Acute) Lumbosacral spondylosis (Acute) Lumbar radiculopathy (Acute) Chronic pain syndrome (Acute) Lumbar spinal stenosis (Acute) Bilateral primary osteoarthritis of knee (Acute) Greater trochanteric pain syndrome of both lower extremities (Acute) Heavy menstrual bleeding (Acute) Pre-op evaluation (Acute) Hypovitaminosis D (Acute) Galactorrhea (Acute) Nipple discharge (Acute) Encounter for annual routine gynecological examination (Acute) Headache (Acute) Fibromyalgia (Acute) Right hip pain (Acute) Left hip pain (Acute) Spondylosis of lumbar region without myelopathy or radiculopathy (Acute) Insomnia (Acute) Obese (Acute) Back pain (Acute) Past Medical History Medical History Asthma GERD (gastroesophageal reflux disease) Hypertension BMI 35.0-35.9,adult Pre-op evaluation Hypovitaminosis D Headache Fibromyalgia Right hip pain Left hip pain Insomnia Obese Back pain Family History Family History Father Diabetes Hypertension Mother Diabetes Hypertension Family/Other Mental health disorder Sister Lupus (systemic lupus erythematosus) Brother Colon cancer Family history of problems with anesthesia: No Surgical History Surgical History History of abdominoplasty H/O lumbar discectomy History of Problems with Anesthesia: No Social History Social History Household Members: Significant Other and Children Housing: House Are you a primary healthcare sales representative to a significant other at home: No Do you presently have visiting nurse or other home services: No Alcohol intake: never Patient Tobacco Use Status: Never used Tobacco e-Cigarette/Vaping Use: Never Used Second Hand Smoke Exposure: No Have you been hit, kicked, punched, or otherwise hurt by someone within the past year? If so, by whom?: No Are you DNR?: No Advance Directives: No Advance Directives Information Provided: Yes Recently lost weight without trying: No Nutrition Risks: No Nutritional Risk FDLMP: one within the year service: No Current occupational status: unemployed Current occupational exposures/hazards: No Meds Allergies Allergy/AdvReac Type Severity Reaction Status Date / Time No Known Allergies Allergy Verified 10/13/24 08:51 Home Medications ?Medication ?Instructions ?Recorded ?Confirmed ?Last Taken ?Type hydroxyzine pamoate 25 mg capsule 25 mg PO BID PRN Anxiety 05/20/24 10/13/24 Unknown History metoprolol succinate 100 mg 100 mg PO DAILY 05/20/24 10/13/24 Unknown History tablet,extended release 24 hr albuterol (refill) 90 mcg inhalation 07/08/24 08/10/24 Unknown History mcg/actuation aerosol inhaler Exam Height,Weight and Vital Signs: Height 5 ft 2 in Weight 88.904 kg Assessment and Plan Assessment Anesthesia Assessment: Chart Reviewed Final Anesthetic Review Family History of Problems with Anesthesia: No History of Problems with Anesthesia: No Documented by User: Bianca Collado MD 10/13/24 12:13 [facility] Past Medical History Medical History Asthma GERD (gastroesophageal reflux disease) Hypertension BMI 35.0-35.9,adult Pre-op evaluation Hypovitaminosis D Headache Fibromyalgia Right hip pain Left hip pain Insomnia Obese Back pain Family History Family History Father Diabetes Hypertension Mother Diabetes Hypertension Family/Other Mental health disorder Sister Lupus (systemic lupus erythematosus) Brother Colon cancer Surgical History Surgical History History of abdominoplasty H/O lumbar discectomy Social History Social History Household Members: Significant Other and Children Housing: House Are you a primary healthcare sales representative to a significant other at home: No Do you presently have visiting nurse or other home services: No Alcohol intake: never Patient Tobacco Use Status: Never used Tobacco e-Cigarette/Vaping Use: Never Used Second Hand Smoke Exposure: No Have you been hit, kicked, punched, or otherwise hurt by someone within the past year? If so, by whom?: No Are you DNR?: No Advance Directives: No Advance Directives Information Provided: Yes Recently lost weight without trying: No Nutrition Risks: No Nutritional Risk FDLMP: one within the year service: No Current occupational status: unemployed Current occupational exposures/hazards: No Meds Allergies Allergy/AdvReac Type Severity Reaction Status Date / Time No Known Allergies Allergy Verified 10/13/24 08:51 Home Medications ?Medication ?Instructions ?Recorded ?Confirmed ?Last Taken ?Type hydroxyzine pamoate 25 mg capsule 25 mg PO BID PRN Anxiety 05/20/24 10/13/24 Unknown History metoprolol succinate 100 mg 100 mg PO DAILY 05/20/24 10/13/24 Unknown History tablet,extended release 24 hr albuterol (refill) 90 mcg inhalation 07/08/24 08/10/24 Unknown History mcg/actuation aerosol inhaler Exam Airway Mallampati Class: II TM Dist: >3cm Neck ROM: Full Loose/Missing/Broken Teeth: No Heart: RRR Lungs: CTA Assessment and Plan Assessment Anesthesia Assessment: Anesthesia Plan Discussed Final Anesthetic Review NPO: Yes ASA Class: II Final Preanesthetic Review: Meds/Allgs Chart Reviewed, Consent Obtained/Reviewed and Anes Risks/Benef Reviewed Patient Risk: Low Procedure Risk: Intermediate Anesthetic Plan Anesthetic Plan: MAC: Disposition: Standard PACU
[2024-10-13 08:53] LABS: UPreg QC Valid YES; Urine Pregnancy NEGATIVE (NEGATIVE)
[2024-10-13] MEDS: Lactated Ringers 1,000 ML 80 ML IVCONT (08:57)
[2024-10-13 09:37] VITALS: BMI 35.1
[2024-10-13 09:38] VITALS: BP 117/76; PULSE 74; RESP 18; TEMP 36.6; O2SAT 99
--- NOTE | 2024-10-13 11:59 | MHC.SHP ---
Pre-Procedural Eval Section A - 24 Hr Update-Section A only Date of Service: 10/13/24 The patient is an INPATIENT: No The patient has been examined within 24 hours of the surgical procedure. The History & Physical has been completed within 30 days and I have reviewed it.: Yes Section B - Complete if H&P > 30 days Chief Complaint: Morbid (severe) obesity due to excess calories Details of Present Illness: GERD Relevant Family History (Specify if Yes): No Relevant Social History: None Present Medications: None Medical History: No relevant PMH History of Previous Operations: No relevant previous surgery Allergies: Allergies Allergy/AdvReac Type Severity Reaction Status Date / Time No Known Allergies Allergy Verified 10/13/24 08:51 Review of Systems Sugical H&P ROS: Negative: Constitution, Cardiovascular, Respiratory, Neurological, Psychiatric, Hem-Onc, Allergic/Immunologic, Gastrointestinal, Genitourinary, Musculoskeletal, Integumentary, Endocrine and Eyes/Ears/Nose/Throat Exam Surgical H&P Exam: Normal: HEENT, Normal: Heart, Normal: Lungs, Normal: Extremities, Normal: Abdomen, Normal: Skin and Normal: Neurological Plan Diagnosis/Plan: Unchanged (EGD to assess etiology of GERD. Risks of bleeding and perforation were discussed with the patient and she is in agreement with the plan.) I have reviewed the history and physical and performed a pertinent physical examination on my patient. No changes have occurred unless specified. Time Spent With Patient Time: Total time managing care of this patient today ____ minutes.
--- NOTE | 2024-10-13 12:00 | P.BOP_ITS ---
Brief Operative Note Date of Service: 10/13/24 Pre-op diagnosis: GERD Post-op diagnosis: same (Gastritis and esophagitis) Procedure: PROCEDURE DATE: 10/13/2024 PREOPERATIVE DIAGNOSIS: GERD POSTOPERATIVE DIAGNOSIS: ?Same as above. 1) esophagitis, 2) gastritis PROCEDURE: [id number] with biopsies Surgeon: ?Zachary Henry M.D.. Ph.D. Commercial Construction Superintendent: None ? Anesthesia: IV sedation Estimated blood loss: ?Minimal FINDINGS AND PROCEDURE: ? OPERATIVE INDICATIONS: ?The patient is a 49 year old female known to me who is interested in bariatric surgery. The patient has GERD. Based on this information I recommended an upper endoscopy to evaluate the patient's symptoms. Risks and complications of the surgery were discussed with the patient in advance particularly the possibility of perforation or bleeding that may require surgical intervention. The patient understood the risks and was in agreement with the plan. ? PROCEDURE: After informed consent was obtained by the patient, the patient was ?transferred to the Operating Room and was placed in the supine position.? After successful induction of IV sedation, a mouth block was inserted and the patient was placed in the left lateral decubitus position. An upper endoscopy was performed next, the oropharynx and esophagus appeared within the normal limits. There was no hiatal hernia. The z-line was irregular with tongus of gastric mucosa protruding into the esophagus in less than 50% circumference. Two biopsies were obtained from the distal esophagus 2-3 cm proximal to the GE junction and two additional biopsies from the GE junction. The stomach was entered and it appeared to be of normal size. There was gastritis at the antrum. There was no stricture or ulcer. A biopsy was obtained from the gastric fundus and the antrum. No significant bleeding was noted from any of the biopsy sites. The scope was then advanced into the duodenum which appeared to be normal as well. At that point the duodenum ?and the stomach were decompressed and the scope was withdrawn from the patient's mouth. The patient extubated and was transferred in stable condition to the Recovery Room for further care. I was present and performed all steps of the procedure. There were no residents to assist with this case. Zachary Henry M.D., Ph.D. Surgeon: Jimmy Henry MD Anesthesia: MAC Was an Commercial Construction Superintendent used for this Procedure?: No Estimated blood loss (mL): 0 IV fluids (mL): 400 Urine output (mL): 0 (No Chowdhury to record output) Pathology: other (1) antrum x1, 2) fundus x1, 3) GE junction x2, 4) distal esophagus x2) Condition: stable Disposition: PACU
[2024-10-13 12:30] VITALS: BP 106/55; PULSE 71; RESP 18; TEMP 36.8; O2SAT 98
[2024-10-13 12:45] VITALS: BP 121/71; PULSE 75; RESP 18; O2SAT 98
[2024-10-13 13:00] VITALS: BP 111/49; PULSE 64; RESP 16; TEMP 36.6; O2SAT 96
--- NOTE | 2024-10-13 13:23 | PM.OP ---
Brief Operative Note Date of Service: 10/13/24 Pre-op diagnosis: Epigastric pain Post-op diagnosis: same (Large anastomotic ulcer) Procedure: PROCEDURE DATE: ?10/13/2024 PREOPERATIVE DIAGNOSIS: Epigastric pain, s/p gastric bypass POSTOPERATIVE DIAGNOSIS: ?Same as above. 1) Large posterior anastomotic ulcer with other superficial anastomotic ulcers, 2) hiatal hernia PROCEDURE: [id number]-[id number] with biopsies Surgeon: ?Zachary Henry M.D.. Ph.D. Animal Care Service Worker: ?None ? Anesthesia: IV sedation Estimated blood loss: ?Minimal FINDINGS AND PROCEDURE: ? OPERATIVE INDICATIONS: ?The patient is a 49 year old male known to me who underwent a laparoscopic gastric bypass by me several years ago. The patient had excellent weight loss so far. Over the last 2 months she has been complaining of persistent abdominal pain radiating to the back. The pain is more severe with food intake and that has limited significantly her food intake. She appears cachectic, malnourished and ill appearing.? Based on this information I recommended an upper endoscopy to evaluate the patient's symptoms.? Risks and complications of the surgery were discussed with the patient in advance particularly the possibility of perforation or bleeding that may require surgical intervention. The patient understood the risks and was in agreement with the plan. ? PROCEDURE: After informed consent was obtained by the patient, the patient was ?transferred to the Operating Room and was placed in the supine position.? After successful induction of IV sedation, a mouth block was placed and the patient was placed in the left lateral decubitus position. An upper endoscopy was performed next, the oropharynx and esophagus appeared within the normal limits. There was a 2-3cm hiatal hernia.? The z-line was smooth. Two biopsies were obtained from the distal esophagus 2-3 cm proximal to the GE junction and two biopsies from the GE junction. The small pouch was entered, appeared to be of normal size. There was no gastritis and the gastrojejunostomy was patent. A biopsy was obtained from the gastric pouch. No significant bleeding was noted from any of the biopsy sites. There was a large and deep posterior anastomotic ulcer with friable tissue and some bleeding. There were a few superficial anastmotic ulcers at the anterior/right side of the anastomosis.? The scope was not advanced further into the proximal small intestine (proximal Kelly limb) out of concern of the large anastomotic ulcer. The Kelly limb and the pouch were decompressed and the scope was withdrawn from the patient's mouth. The patient will be admitted for TPN. The patient was awaken and was transferred in stable condition to the Recovery Room for further care. I was present and performed all steps of the procedure. There were no residents to assist with this case. Zachary Henry M.D., Ph.D. Surgeon: Jimmy Henry MD Anesthesia: MAC Was an Animal Care Service Worker used for this Procedure?: No Estimated blood loss (mL): 0 IV fluids (mL): 400 Urine output (mL): 0 (No Chowdhury to record output) Pathology: other (1) gastric pouch x1, 2) GE junction x2, 3) distal esophagus x2) Condition: stable Disposition: PACU
== END 2024-10-13 13:30 | disposition home or self-care (01) ==
PROVIDERS: Nurse Practitioner; PCP Internal Medicine; Visit Provider Surgery
PROC: 0DJ08ZZ Inspection of Upper Intestinal Tract, Via Natural or Artificial Opening Endoscopic (ICD-10-PCS; CPT 43235; principal; 2024-10-13 10:00)
DX: K21.9 Gastro-esophageal reflux disease without esophagitis (principal); K29.50 Unspecified chronic gastritis without bleeding; K20.80 Other esophagitis without bleeding; K44.9 Diaphragmatic hernia without obstruction or gangrene; E66.01 Morbid (severe) obesity due to excess calories; Z68.35 Body mass index [BMI] 35.0-35.9, adult; I10 Essential (primary) hypertension; M79.7 Fibromyalgia; E55.9 Vitamin D deficiency, unspecified; M25.552 Pain in left hip; M25.551 Pain in right hip; J45.909 Unspecified asthma, uncomplicated; Z79.899 Other long term (current) drug therapy; Z56.0 Unemployment, unspecified
CPT/HCPCS: 43239; 81025; 88305; 88313; 88342; J2003; J2704

== ENCOUNTER → 2024-10-13 08:25 | Outpatient (BNV) | payer MEDICARE, MEDICAID, BC, SELFPAY | PROVIDERS: PCP Internal Medicine; Visit Provider Surgery | DX: K44.9 Diaphragmatic hernia without obstruction or gangrene (principal) | CPT/HCPCS: 43239 ==

== ENCOUNTER → 2024-11-09 11:21 | Outpatient (AMB) | payer MEDICARE, MEDICAID, SELFPAY ==
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
== END ==
LOC: HO.HBST 11:21
PROVIDERS: PCP Internal Medicine; Visit Provider Counselor Mental Health
DX: F41.0 Panic disorder [episodic paroxysmal anxiety] (principal); F43.9 Reaction to severe stress, unspecified
CPT/HCPCS: 90834

== ENCOUNTER → 2024-11-09 11:21 | Outpatient (BNVA) | payer MEDICARE, MEDICAID, SELFPAY | PROVIDERS: PCP Internal Medicine; Visit Provider Counselor Mental Health ==

== ENCOUNTER 2024-11-11 15:17 | Outpatient (AMB) | payer MEDICARE, MEDICAID, SELFPAY ==
--- NOTE | 2024-11-11 22:45 | MHC.OFFVISWM ---
VS Expanded 11/11/24 22:46 Height 5 ft 2 in Weight 191 lb 4 oz BMI 35.0 Body Fat % 44.7 Body Fat Mass 85.5 Fat Free Mass 105.8 Body Water % 37.9 Body Water Mass 72.5 Intake Visit Reasons: TV Pre Op LSG 11/20/2024 Allergies No Known Allergies Allergy (Verified 11/11/24 22:49) Medication List - Last Reconciled 11/11/24 by Jimmy Herny MD albuterol (refill) 90 mcg/actuation mcg inhalation cholecalciferol (vitamin D3) 125 mcg PO DAILY gabapentin 300 mg PO TID 30 days hydroxyzine pamoate 25 mg PO BID PRN mecobalamin (vitamin B12) 1,000 mcg sublingual DAILY metoprolol succinate ER 100 mg PO DAILY ondansetron 4 mg PO Q12H pantoprazole 40 mg PO DAILY polyethylene glycol 3350 17 grams orally as directed; Mix each measuring cup with 8oz of water, Crystal light, or Gatorade zero, or Propel and do 7 measuring cups on 11/18/24 and another 7 measuring cups on 11/19/24 sucralfate 10 mL PO BID HPI HPI TV Pre Op LSG 11/20/2024: Details: Start time: 11.40am, End time: 12.10pm I spent 25 minutes speaking with the patient on the phone plus an additional 5 minutes reviewing and updating records for a total of 30 minutes HPI Comments Details: Overall weight loss: 4.6lbs, or 2.35% TBWL This is the preop appointment for laparoscopic sleeve gastrectomy [facility] Medical History Asthma GERD (gastroesophageal reflux disease) Hypertension BMI 35.0-35.9,adult Pre-op evaluation Hypovitaminosis D Headache Fibromyalgia Right hip pain Left hip pain Insomnia Obese Back pain Surgical History History of abdominoplasty H/O lumbar discectomy Family History Father Diabetes Hypertension Mother Diabetes Hypertension Family/Other Mental health disorder Sister Lupus (systemic lupus erythematosus) Brother Colon cancer Social History Household Members: Significant Other and Children Housing: House Are you a primary child care giver to a significant other at home: No Do you presently have visiting nurse or other home services: No Alcohol intake: never Patient Tobacco Use Status: Never used Tobacco e-Cigarette/Vaping Use: Never Used Second Hand Smoke Exposure: No service: No Current occupational status: unemployed Current occupational exposures/hazards: No Female Reproductive History Menstrual Age of Menarche: 11 Telehealth Telehealth Telehealth Platform: Telephone Location of provider rendering services: practice address Location of patient: address on file Patient Identification confirmed using: Name, : Yes Telehealth method: voice only Patient verbally consented to treatment: Yes Patient verbally consented to billing insurance company: Yes Patient informed of any privacy concerns related to visit: Yes Minutes spent on Phone/Video with Pt.: 30 Assessment & Plan Assessment & Plan (1) Obese: Code(s): E66.9 - Obesity, unspecified Category: Medical Qualifiers: Obesity type: due to excess calories Obesity classification: adult class 2 (BMI 35 - 39.9) Serious obesity comorbidity presence: with serious comorbidity Body mass index: BMI 35.0-35.9 Qualified Code(s): E66.01 - Morbid (severe) obesity due to excess calories; Z68.35 - Body mass index [BMI] 35.0-35.9, adult Plan: 1. Plan for lap sleeve gastrectomy including upper GI endoscopy. All tests has been completed and reviewed and the patient is cleared for the surgery. If diaphragmatic or ventral hernias are present at time of surgery, these will be repaired laparoscopically as well. Risks and complications were discussed in detail including possible conversion to an open procedure, anastomotic leak, bleeding requiring transfusion, small bowel obstruction, , DVT and pulmonary embolism, cardiac, or pulmonary complications, as termite exterminator helper complications such as anastomotic ulcer, insufficient weight loss and vitamin deficiencies. I emphasized the importance of close follow-up, adherence to instructions and good communication. So far she has proven to be an excellent communicator and very compliant with all our directions accomplishing a great weight loss. I believe that she is an excellent candidate and she is ready. 2. Preop prescriptions were provided and explained the purpose of each one. Need to be purchased preop. Start Pantoprazole now as you get it from the pharmacy, 1 pill per day. Sucralfate and Zofran are for after surgery as needed. 3. Bowel prep: please do 7 packets of Miralax mixing each one with a an 8oz glass of water, crystal light, gatorade zero, or propel on 11/18/24 and the same amount on 11/19/24. The Miralax you begin with one packet at a time in 8oz water or crystal light, gatorade zero, or propel as early in the day as you can and you do them back to back until you finish them. Continue the protein shakes during the bowel prep. 4. Needs to purchase 1oz medicine cups . 5. Needs to purchase Children's liquid Tylenol for postop pain control. 6. She needs to stop the Gabapentin on Saturday11/16/24. Avoid aspirin, motrin, Advil, Aleve, Ibuprofen, Naproxyn. Tylenol is OK. 7. She needs to purchase the Celebrate 4:1 protein shakes from the hospital's gift shop. 8. Will do basic preop blood work-up any day between 11/12/24 and Saturday11/13/24 fasting for 12 hours and is scheduled to see the Anesthesiologist prior to the day of surgery. 9. Importance of adherence to postop folllow-up and recommendations was underscored and she understands that. 10. Continue to avoid food and bars and continue with 3 Celebrate REBUILD protein shakes (ONE scoop EACH in 8oz almond milk) at 8am-10am, 11am-1pm and 2pm-4pm, one Glucerna bottle at 5pm-7pm and one more Celebrate REBUILD protein shake with TWO scoops in 8oz of almond milk at 8pm-10pm 11. No soups, broths or V8 12. The patient's medical history has been reviewed and they are considered low risk for post op DVT and therefore DVT prophylaxis is not considered necessary. Travel after surgery was reviewed. The patient has not disclosed any travel plans during the first 30 days after surgery and they have been advised that within the first 30 days after surgery any bus, plane, train or car travel over 2 hours in duration is contraindicated due to the possibility of developing blood clots from immobility. Any travel, needs to include periods of ambulation of 10 minutes in duration every 2 hours. Patient was instructed to discuss any plans for travel during this period with their bariatric surgeon. 14. As of tomorrow, please check your blood pressure daily in the morning. If your bl3od pressure is: Below 120/70: do not take the Metoprolol 121/71 to 130/80: take HALF Metoprolol Over 131/81: take the whole Metoprolol 14. Please take at the day of surgery the following medications: Only the Metoprolol if the blood pressure is high enough to justify it. 15. Stop any control pills and don't use them for one month after surgery 16. Absolutely no smoking or vaping, or marijuana until the surgery and for at least the first 4 weeks. Only nicotine patches are allowed. 17. Send me weight measurements on Saturday11/16/24 and then on Saturday11/20/24, the day of surgery before you go to the hospital. 18. Avoid any steroids by mouth for any reason. Let me know if someone prescribes them to you 19. These instructions supersede anything else you read in the handbook, anything you watched in videos or classes or you were told by any other provider. If there is any conflict, you follow the above instructions and nothing else.
[2024-11-11 22:46] VITALS: BMI 35.0
== END 2024-11-11 22:53 | disposition home or self-care (01) ==
LOC: HO.HBS 15:17
PROVIDERS: PCP Internal Medicine; Visit Provider Surgery
DX: E66.812 Obesity, class 2 (principal); Z68.35 Body mass index [BMI] 35.0-35.9, adult
CPT/HCPCS: 99499

== ENCOUNTER 2024-11-12 | Outpatient (REF) | payer MEDICARE, MEDICAID, SELFPAY ==
[2024-11-12 09:35] LABS: MANUAL DIFF FLAG NO
[2024-11-12 10:43] LABS: Basophils Percent Auto 0.7 % (0-2); Eosinophils Absolute Auto 0.2 X10*3/uL (0.0-0.4); Eosinophils Percent Auto 3.6 % (0-4); Hemoglobin 14.1 g/dl (12.0-16.0); Imm Gran Abs Auto 0.01 X10*3/uL (0.00-0.03); Imm Gran Pct Auto 0.2 % (0.0-0.4); Lymphocytes Absolute Auto 1.5 X10*3/uL (1.2-4.9); Lymphocytes Percent Auto 34.5 % (20-40); Monocytes Absolute Auto 0.3 X10*3/uL (0.1-1.2); Monocytes Percent Auto 6.5 % (2-11); Neutrophils Absolute Auto 2.4 x10*3/uL (2.0-8.3); Neutrophils Percent Auto 54.5 % (45-73); Platelet Count 300 X10*3/uL (160-400); Red Blood Count 5.43 X10*6/uL (4.20-5.50); White Blood Count 4.5 X10*3/uL (4.8-10.8)
[2024-11-12 10:49] LABS: Prothrombin Time 11.7 SEC (10.9-12.4)
[2024-11-12 10:52] LABS: Partial Thromboplastin Time 32.1 SEC (26.0-36.8)
[2024-11-12 11:00] LABS: Estimated Average Glucose 117 mg/dL; Hemoglobin A1C 138.2346 umol/L; Hemoglobin A1c % 5.7 % (<6.0)
[2024-11-12 11:28] LABS: Alanine Aminotransferase 39 U/L (0-31); Albumin Level 4.5 g/dL (3.5-5.0); Alkaline Phosphatase 68 U/L (39-117); Anion Gap 12 (12-20); Aspartate Amino Transferase 30 U/L (5-31); Bilirubin Total 0.3 mg/dL (0.0-1.0); Blood Urea Nitrogen 13 mg/dL (9-16); C Reactive Protein 0.12 mg/dL (< or = 0.50); Calcium 9.9 mg/dL (8.4-10.2); Carbon Dioxide 27 mmol/L (22-29); Chloride 108 mmol/L (96-108); Cholesterol 181 mg/dL (<200); Estimated Glomerular Filt Rate > 60; Glucose Random 102 mg/dL (60-115); HDL Cholesterol 40 mg/dL (>40); LDL Cholesterol Calculated 123 mg/dL (<100); Sodium 143 mmol/L (135-145); Total Protein 7.5 g/dL (6.5-8.0); Triglycerides 93 mg/dL (<150)
[2024-11-12 11:57] LABS: Insulin 10 uU/mL (2-29)
[2024-11-12 12:05] LABS: TSH reflex Free T4 1.03 uIU/mL (0.32-4.0)
[2024-11-13 12:50] VITALS: BMI 33.5
--- NOTE | 2024-11-18 13:00 | HO.ANESPROP2 ---
HPI - Anesthesia Eval Consult details Narrative: 49yo F for Gastrectomy Sleeve,EGD,possibel Diaphragmatic Hernia,possible Ventral Hernia,possible Open Possible fam hx of MH PMFSH Active Problems Active Problems: All Active Problems Esophagitis determined by biopsy (Acute) Abnormal EKG (Acute) Vitamin B12 deficiency (Acute) Vitamin D deficiency (Acute) Polyuria (Acute) Uterine myoma (Acute) Abnormal uterine bleeding (AUB) (Acute) Right shoulder pain (Acute) Sacroiliac joint pain (Acute) Lumbosacral spondylosis (Acute) Lumbar radiculopathy (Acute) Chronic pain syndrome (Acute) Lumbar spinal stenosis (Acute) Bilateral primary osteoarthritis of knee (Acute) Greater trochanteric pain syndrome of both lower extremities (Acute) Heavy menstrual bleeding (Acute) Galactorrhea (Acute) Nipple discharge (Acute) Encounter for annual routine gynecological examination (Acute) Spondylosis of lumbar region without myelopathy or radiculopathy (Acute) Asthma (Acute) GERD (gastroesophageal reflux disease) (Acute) Hypertension (Acute) BMI 35.0-35.9,adult (Acute) Pre-op evaluation (Acute) Hypovitaminosis D (Acute) Headache (Acute) Fibromyalgia (Acute) Right hip pain (Acute) Left hip pain (Acute) Insomnia (Acute) Obese (Acute) Back pain (Acute) Past Medical History Medical History (Updated 11/13/24 @ 12:31 by Candelaria Cuellar, RN) Osteoarthritis Constipation Anxiety Difficulty swallowing Habitual snoring Elevated cholesterol Asthma GERD (gastroesophageal reflux disease) Hypertension BMI 35.0-35.9,adult Pre-op evaluation Hypovitaminosis D Headache Fibromyalgia Right hip pain Left hip pain Insomnia Obese Back pain Family History Family History Father Diabetes Hypertension Mother Diabetes Hypertension Family/Other Mental health disorder Sister Lupus (systemic lupus erythematosus) Brother Colon cancer Family history of problems with anesthesia: No Surgical History Surgical History (Updated 11/13/24 @ 12:37 by Candelaria Cuellar RN) H/O colonoscopy History of esophagogastroduodenoscopy (EGD) History of abdominoplasty H/O lumbar discectomy History of Problems with Anesthesia: No Social History Social History Household Members: Significant Other and Children Housing: House Are you a primary child care associate to a significant other at home: No Do you presently have visiting nurse or other home services: No Alcohol intake: never Patient Tobacco Use Status: Never used Tobacco e-Cigarette/Vaping Use: Never Used Second Hand Smoke Exposure: No Use of substances other than those prescribed or required for medical reasons: No Have you been hit, kicked, punched, or otherwise hurt by someone within the past year? If so, by whom?: No Are you DNR?: No Advance Directives: No Advance Directives Information Provided: No Advance Directives on File: No Recently lost weight without trying: No Eating poorly because of decreased appetite: No Nutrition Risks: No Nutritional Risk Patient : No : No Poor oral hygiene: Yes (missing teeth upper and lower) service: No Current occupational status: unemployed Current occupational exposures/hazards: No Meds Allergies Allergy/AdvReac Type Severity Reaction Status Date / Time No Known Allergies Allergy Verified 11/11/24 22:49 Home Medications ?Medication ?Instructions ?Recorded ?Confirmed ?Last Taken ?Type hydroxyzine pamoate 25 mg capsule 25 mg PO BID PRN Anxiety 05/20/24 11/13/24 Unknown History metoprolol succinate 100 mg 100 mg PO DAILY 05/20/24 11/13/24 Unknown History tablet,extended release 24 hr albuterol (refill) 90 2 mcg inhalation QID PRN Shortness 07/08/24 11/13/24 Unknown History mcg/actuation aerosol inhaler Of Breath Or Wheezing duloxetine 20 mg capsule,delayed 20 mg PO BID 11/13/24 11/13/24 Unknown History release methadone 53 mg PO DAILY PRN Pain 11/13/24 11/13/24 Unknown History sennosides 8.6 mg capsule 8.6 mg PO Q OTHER DAY 11/13/24 11/13/24 Unknown History Exam Height,Weight and Vital Signs: Height 5 ft 3 in Weight 85.729 kg Pertinent Lab Results Pertinent Lab Results: Laboratory Tests 11/12/24 11/12/24 09:26 09:34 WBC 4.5 L RBC 5.43 Hgb 14.1 Hct 44.0 MCV 81.0 MCH 26.0 L MCHC 32.0 RDW 15.0 Plt Count 300 MPV 11.0 Immature Gran % (Auto) 0.2 Neut % (Auto) 54.5 Lymph % (Auto) 34.5 [place] % (Auto) 6.5 Eos % (Auto) 3.6 Baso % (Auto) 0.7 Lymph # (Auto) 1.5 [place] # (Auto) 0.3 Eos # (Auto) 0.2 Baso # (Auto) 0.0 Abs Immat Gran (auto) 0.01 Absolute Neuts (auto) 2.4 Absolute Nucleated RBC 0.000 Nucleated RBC % (auto) 0.0 PT 11.7 INR 1.0 APTT 32.1 Sodium 143 Potassium 4.0 Chloride 108 Carbon Dioxide 27 Anion Gap 12 BUN 13 Creatinine 0.72 Estim Creat Clear Calc TNP Estimated GFR > 60 Random Glucose 102 Estimat Average Glucose 117 Hemoglobin A1c % 5.7 Insulin Level 10 Calcium 9.9 D Total Bilirubin 0.3 AST 30 ALT 39 H Alkaline Phosphatase 68 C-Reactive Protein 0.12 Total Protein 7.5 Albumin 4.5 Triglycerides 93 Cholesterol 181 LDL Cholesterol, Calc 123 H HDL Cholesterol 40 L TSH 1.03 Blood Type O Positive Antibody Screen NEGATIVE Narrative Narrative: ECHO 09/2024 Conclusions: - The left ventricular systolic function is normal. The calculated ejection fraction is 55% by biplane method. - No obvious valvular pathology seen on this study. Exercise Stress 09/2024 Protocol: EDIS Max HR: 157 BPM 92% of Pred: 170 BPM Max BP: 182/088 mmHG Max Work Load: 7.0 METS Exercise stress test with exercise 5 min 36 sec of Edis protocol, achieving 92% MPHR, 7 METs, without anginal symtoms, without arrythmia, with elevated BP at baseline and normal response with exercise, wiithout EKG changes meetinf criteira for ischemia. Test reviewed with Dr Perez EKG 08/2024 Vent. Rate : 077 BPM Atrial Rate : 077 BPM P-R Int : 170 ms QRS Dur : 082 ms QT Int : 358 ms P-R-T Axes : 058 017 013 degrees QTc Int : 405 ms Normal sinus rhythm Nonspecific T wave abnormality Abnormal ECG When compared with ECG of 30-MAY-2023 17:32, QT has shortened Assessment and Plan Assessment Anesthesia Assessment: Chart Reviewed Final Anesthetic Review Family History of Problems with Anesthesia: No History of Problems with Anesthesia: No
== END 2024-11-12 00:01 | disposition home or self-care (01) ==
LOC: HO.PAT
PROVIDERS: Admitting Provider Surgery; PCP Internal Medicine; Visit Provider Surgery
DX: Z01.818 Encounter for other preprocedural examination (principal); Z13.1 Encounter for screening for diabetes mellitus; E66.01 Morbid (severe) obesity due to excess calories; Z68.35 Body mass index [BMI] 35.0-35.9, adult; K21.9 Gastro-esophageal reflux disease without esophagitis; I10 Essential (primary) hypertension
CPT/HCPCS: 36415; 80053; 80061; 83036; 83525; 84443; 85025; 85610; 85730; 86140; 86850; 86900; 86901

== ENCOUNTER → 2024-11-12 09:59 | Outpatient (BNVA) | payer MEDICARE, MEDICAID, SELFPAY | PROVIDERS: PCP Internal Medicine; Visit Provider Physician Assistant Surgical ==

== ENCOUNTER 2025-03-25 10:33 | Outpatient (REF) | payer MEDICARE, MEDICAID, SELFPAY ==
[2025-03-25 10:43] LABS: MANUAL DIFF FLAG NO
[2025-03-25 12:00] LABS: Basophils Percent Auto 0.7 % (0-2); Eosinophils Absolute Auto 0.3 X10*3/uL (0.0-0.4); Hematocrit 43.1 % (37.0-47.0); Hemoglobin 14.1 g/dl (12.0-16.0); Imm Gran Abs Auto 0.01 X10*3/uL (0.00-0.03); Imm Gran Pct Auto 0.2 % (0.0-0.4); Lymphocytes Absolute Auto 1.6 X10*3/uL (1.2-4.9); Lymphocytes Percent Auto 35.7 % (20-40); Mean Corpuscular HGB Conc 32.7 g/dl (31.0-35.0); Mean Corpuscular Volume 85.7 fL (80.0-98.0); Mean Platelet Volume 10.8 fL (9.4-12.3); Monocytes Absolute Auto 0.2 X10*3/uL (0.1-1.2); Monocytes Percent Auto 4.9 % (2-11); Neutrophils Absolute Auto 2.3 x10*3/uL (2.0-8.3); Neutrophils Percent Auto 51.5 % (45-73); Platelet Count 246 X10*3/uL (160-400); Red Blood Count 5.03 X10*6/uL (4.20-5.50); Red Cell Distribution Width 13.7 % (11.0-16.0); White Blood Count 4.5 X10*3/uL (4.8-10.8)
--- OUTSIDE RECORDS SUMMARY | 2025-03-25 12:16 | XMS_ITS | Clinical Summary ---
Author Organization [facility] ity Address [address] [place] [address] Care Team Providers Care Bench Assembler Electrical Name Role Phone Unavailable Primary Care Provider Unavailabl e Surgical History Surgery Date Site/Laterality Comments OTHER SURGICAL HISTORY 2006 Left PROCEDURE: HISTORY OTHER; COMMENT: left breast biopsy - benign fibroadenoma Medical History Medical History Date Comments Anxiety state DX:Anxiety state Mild intermittent asthma, uncomplicated DX:Mild intermittent asthma, uncomplicated Social History Tobacco Use Types Packs/Day Years Used Date Smoking Tobacco: Never Assessed Comments Unknown Sex and Gender Information Value Date Recorded Sex Assigned at Not on file Legal Sex Female 9:43 AM EST Gender Identity Not on file Sexual Orientation Not on file Obstetrics History Plan of Treatment Health Maintenance Due Date Last Done Comments Breast Cancer Screening 1974 DTaP,Tdap,and Td Vaccines (1 - Tdap) 1993 Hepatitis B Vaccines (1 of 3 - 19+ 3-dose series) 1993 Cervical Cancer Screening: P ap Smear 1995 Colorectal Cancer Screening: Colonoscopy 10/30/2022 Depression Screening 10/30/2022 HIV Screening 10/30/2022 Hepatitis C Screening 10/30/2022 Social Influencers of Health Screening 10/30/2022 COVID-19 Vaccine (1 - 2023-2 5 season) 2024 Pneumococcal Vaccine: 50+ Ye ars (1 of 1 - PCV) 2024 Zoster Vaccines (1 of 2) 2024 Influenza Vaccine (Season Ended) 2025 HIB Vaccines Aged Out No longer eligi ble based on patient's age to complete this topic HPV Vaccines Aged Out No longer eligi ble based on patient's age to complete this topic Hepatitis A Vaccines Aged Out No long er eligible based on patient's age to complete this topic IPV Vaccines Aged Out No longer eligi ble based on patient's age to complete this topic MMR Vaccines Aged Out No longer eligi ble based on patient's age to complete this topic Meningococcal ACWY Vaccine Aged Out N o longer eligible based on patient's age to complete this topic Meningococcal B Vaccine Aged Out No l onger eligible based on patient's age to complete this topic Pneumococcal Vaccine: Pediat rics (0 to 5 Years) and At-Risk Patients (6 to 64 Years) Aged Out No longer eligible b ased on patient's age to complete this topic RSV Immunization Patients Un kailash 20 months Aged Out No longer eligible b ased on patient's age to complete this topic Varicella Vaccines Aged Out No longer eligible based on patient's age to complete this topic
--- OUTSIDE RECORDS SUMMARY | 2025-03-25 12:16 | XMS_ITS | Clinical Summary ---
Author Organization [facility], Address [address] [place] [address] Phone Care Team Providers Care Senior Portfolio Analyst Name Role Phone Basilia Victor MD Primary Care Provider Social History Tobacco Use Types Packs/Day Years Used Date Smoking Tobacco: Never Assessed Comments Unknown Sex and Gender Information Value Date Recorded Sex Assigned at Not on file Legal Sex Female 10:20 AM EST Gender Identity Not on file Sexual Orientation Not on file Last Filed Vital Signs Vital Sign Reading Time Taken Comments Blood Pressure 124/79 01/03/2021 1:45 PM EST Pulse 94 01/03/2021 1:45 PM EST Temperature 36.2 ??C (97.2 ??F) 01/03/2021 1:45 PM ES T Respiratory Rate - - Oxygen Saturation 99% 01/03/2021 1:45 PM EST Inhaled Oxygen Concentration - - Weight 88.5 kg (195 lb) 01/03/2021 1:45 PM EST Height 160 cm (5' 3 ) 01/03/2021 1:45 PM EST Body Mass Index 34.54 01/03/2021 1:45 PM EST Plan of Treatment Health Maintenance Due Date Last Done Comments Breast Cancer Screening 1974 Hepatitis B Vaccine (1 of 3 - 19+ 3-dose series) 09/08 Colorectal Cancer Screening: Annual FOBT 2023 Colorectal Cancer Screening: Colonoscopy 2023 Colorectal Cancer Screening: Sigmoidoscopy 2023 Pneumococcal Vaccine: 50+ Years (1 of 1 - PCV) 024 Influenza Vaccine (Season Ended) 2025 Insurance Medicare [facility] Care Teams Senior Portfolio Analyst Relationship Specialty Start Date End Date Basilia Victor MD PCP - General Internal Medicine 12/27/20
[2025-03-25 12:36] LABS: Alanine Aminotransferase 23 U/L (0-31); Albumin Level 4.5 g/dL (3.5-5.0); Alkaline Phosphatase 63 U/L (39-117); Anion Gap 8 (12-20); Aspartate Amino Transferase 22 U/L (5-31); Bilirubin Total 0.2 mg/dL (0.0-1.0); Blood Urea Nitrogen 13 mg/dL (9-16); Calcium 9.7 mg/dL (8.4-10.2); Carbon Dioxide 29 mmol/L (22-29); Chloride 108 mmol/L (96-108); Cholesterol 205 mg/dL (<200); Estimated Glomerular Filt Rate > 60; Glucose Random 91 mg/dL (60-115); HDL Cholesterol 45 mg/dL (>40); LDL Cholesterol Calculated 142 mg/dL (<100); Potassium 4.1 mmol/L (3.3-5.1); Sodium 141 mmol/L (135-145); Total Protein 7.5 g/dL (6.5-8.0); Triglycerides 90 mg/dL (<150)
[2025-03-25 12:42] LABS: Thyroid Stimulating Hormone 1.12 uIU/mL (0.32-4.0)
== END 2025-03-25 10:34 | disposition home or self-care (01) ==
LOC: HO.LAB 10:33
PROVIDERS: PCP Internal Medicine; Visit Provider Internal Medicine
DX: E78.00 Pure hypercholesterolemia, unspecified (principal); H40.53X0 Glaucoma secondary to other eye disorders, bilateral, stage unspecified; I10 Essential (primary) hypertension; K22.70 Barrett's esophagus without dysplasia; M79.7 Fibromyalgia
CPT/HCPCS: 36415; 80053; 80061; 84443; 85025

== ENCOUNTER → 2025-09-06 09:00 | Outpatient (BNV) | payer MEDICARE, MEDICAID, SELFPAY | PROVIDERS: PCP Internal Medicine; Visit Provider Internal Medicine | DX: R92.8 Other abnormal and inconclusive findings on diagnostic imaging of breast (principal); N64.4 Mastodynia | CPT/HCPCS: 76642; 77066; G0279 ==

== ENCOUNTER 2025-09-06 09:05 | Outpatient (REF) | payer MEDICARE, MEDICAID, SELFPAY ==
--- NOTE | ~2025-09-06 | US_ITS ---
EXAMINATION: MM DIAGNOSTIC DIGITAL BREAST TOMOSYNTHESIS, BILATERAL Limited left breast ultrasound. CLINICAL INFORMATION: Left breast pain. COMPARISON: Mammography: Comparison is made with relevant prior exams. TECHNIQUE: Digital breast mammography with tomosynthesis is performed in both the craniocaudal and mediolateral oblique views along with computer-aided detection (CAD). FINDINGS: There are scattered areas of fibroglandular density. Right: No suspicious calcifications masses or other abnormal findings. Left: Marker clip in the upper outer breast. [place] marker in the upper outer quadrant middle to posterior depth without underlying abnormal finding at site of patient's pain. Circumscribed oval mass medial breast anterior to middle depth on CC view. No suspicious calcifications or other abnormal findings. Targeted color Doppler ultrasound scanning in the upper outer quadrant area of patient's pain demonstrates normal fibronodular breast tissue. Targeted color Doppler ultrasound scanning in the lower inner quadrant area of asymmetry demonstrates normal fibronodular breast tissue. There is no sonographic abnormal finding. Results are provided to the patient at time of visit by the technologist. US/US Breast LT Limited Mamm Only IMPRESSION: Right: Negative. Left: No mammographic or sonographic abnormal finding in the upper outer quadrant to correlate with the area of patient's pain. Recommend clinical evaluation follow-up. Asymmetry medial left breast anterior to middle depth on CC view without sonographic correlate. Recommend 6 month follow-up left breast mammogram for further evaluation of stability. ASSESSMENT: BI-RADS Category 3: Probably benign RECOMMENDATION: 6 Month F/U This patient's information was entered into a reminder system with a target due date for their next mammogram. Electronically signed by: Henrietta Chicas DO 09/06/2025 12:31 PM EDT
--- OUTSIDE RECORDS SUMMARY | 2025-09-06 10:11 | XMS_ITS | Clinical Summary ---
Author Organization [facility], Address [address] [place] [address] Phone Care Team Providers Care Grove Superintendent Name Role Phone Basilia Victor MD Primary [...] 94 01/03/2021 1:45 PM EST Temperature 36.2 C (97.2 F) 01/03/2021 1:45 PM EST Respiratory Rate - - Oxygen Saturation 99% [...] of 1 - PCV) 024 Influenza Vaccine (#1) 2025 Insurance Medicare [facility] Care Teams Grove Superintendent Relationship Specialty Start Date End Date Basilia Victor MD PCP - General Internal Medicine 12/27/20
--- OUTSIDE RECORDS SUMMARY | 2025-09-06 10:11 | XMS_ITS | Clinical Summary ---
Author Organization [facility] ity Address [address] [place] [address] Care Team Providers Care Weir Fisher Name Role Phone Unavailable Primary Care Provider [...] Last Done Comments Breast Cancer Screening 1974 Colorectal Cancer Screening: Colonoscopy 1974 DTaP,Tdap,and Td Vaccines (1 - Tdap) 1993 Hepatitis B Vaccines (1 of 3 - 19+ 3-dose series) 1993 Cervical Cancer Screening: P ap Smear 1995 HIV Screening 10/30/2022 Hepatitis C Screening 10/30/2022 Social Influencers of Health Screening 10/30/2022 Pneumococcal Vaccine: 50+ Ye ars (1 of 1 - PCV) 2024 Zoster Vaccines (1 of 2) 2024 Depression Screening 12/02/2024 COVID-19 Vaccine ( - 2023-2 5 season) 2025 Influenza Vaccine (#1) 2025 RSV Immunization Adult Patie nts (1 - 1-dose 75+ series) 2049 HIB Vaccines Aged Out No longer eligi [...]
== END 2025-09-06 09:06 | disposition home or self-care (01) ==
LOC: HO.MAMMO 09:05
PROVIDERS: PCP Internal Medicine; Visit Provider Internal Medicine
DX: N64.4 Mastodynia (principal)
CPT/HCPCS: 76642; 77062; 77066

== ENCOUNTER 2025-09-30 10:10 | Outpatient (AMB) | payer MEDICARE, SELFPAY ==
--- NOTE | 2025-09-30 10:14 | MHC.OFFVIS ---
Vital Signs 09/30/25 10:19 Height 5 ft 2 in Weight 198 lb BMI 36.2 BP 137/74 Blood Pressure Location Lt brachial Position Sitting Pulse 61 Pulse Source Pulse Oximeter Pulse Oximetry (%) 100 Oxygen Delivery Method Room Air Intake Visit Reasons: LEFT HIP PAIN Intake Note: Pain today 6.5/10 Alignment Technician Required: No Accompanied by: Spouse Allergies No Known Allergies Allergy (Verified 11/11/24 22:49) HPI Comments Details: The patient is a 50-year-old female presenting with bilateral hip pain, identified as greater trochanteric bursitis worse on the left. The pain is localized to lateral side of the hips and does not radiate to the groin. The patient reports the pain as burning, stabbing, sore and aching, with a severity ranging from 6.5 to 8 out of 10. The patient has a history of lumbar disc herniation, for which she underwent a lumbar discectomy three years ago. She reports occasional back pain and has experienced multiple falls, the most recent being two weeks ago, which may have exacerbated her hip pain. The patient has been diagnosed with fibromyalgia, contributing to her chronic pain symptoms. She has been managing her pain with ibuprofen and methadone, having transitioned from oxycodone to reduce dependency. The patient is also prediabetic, with a BMI of 36, and has a family history of diabetes. Her blood sugar levels are currently well-controlled with an A1c of 5.7%. Denies any recent cough, cold, infection, fever or any significant changes in medical history since last office visit. - Onset: Chronic pain with recent exacerbation due to falls. - Quality: Burning, stabbing, and aching pain. - Location: Primarily in the left hip, does not radiate to the groin. - Severity: Ranges from 6.5 to 8 out of 10. - Exacerbating factors: Prolonged sitting, driving, and sleeping on sides. - Relieving factors: Rotating positions frequently, use of ibuprofen and heat application. - Affect: Pain impacts sleep, requiring frequent position changes. - Analgesia: Current medications include ibuprofen and methadone, with pain levels reported between 6.5 and 8 out of 10. - Adverse Effects: No adverse effects from current medications reported. - Activities of Daily Living: Pain interferes with prolonged sitting, driving, and sleeping. - Aberrant Drug Related Behaviors: Transitioned from oxycodone to methadone to reduce dependency. PRIOR 10/04/2023: Patient presents today via telehealth encounter as she was not been able to come in due to transportation issues. She reports taking gabapentin with good tolerance and without any side effects. She has been taking it BID-TID with good pain relief and improved sleep as well as improved functioning during the day. Denies any recent cough, cold, infection, fever or other significant changes in medical history since last office visit. PRIOR: Patient presents today for follow up for low back pain with radiation to bilateral hips and occasionally into her groins. She continues to endorse sacroiliac joint pain and reports good results for several months status post therapeutic SIJ injections on 01/24/[address] Hong. Patient also reports of neck, right shoulder and bilateral knee pain today. Right hand dominant. Right shoulder pain is anterior and increases with overhead reaches and backside pocket reaches with fully preserved range of motions. She has fibromyalgia and reports widespread diffuse body pain that has been increasing with recent cold weather changes. There is no radiation of pain into her legs below knees. Back pain increases with movements, bending or extension. Lumbar spine MRI on 01/22/23 is noted below. Denies any fever, abdominal pain, bladder or bowel dysfunction or saddle anesthesia. Past Procedures: 01/24/23: Bilateral therapeutic SIJ injections-good pain relief for 2-3 months PRIOR: Patient is a pleasant 47 years old female presents today with bilateral hip and low back pain with radicular symptoms. Patient was last seen in our office in March 2021. Patient underwent Anterior lumbar interbody fusion L5-S1 with LT titanium cages and InFUSE on 12/26/[address] Munoz and last follow up visit on 01/13/21. Review of [facility] notes show that second appointment was scheduled in 4 weeks but patient was no show. Patient reports few months after surgery she fell and denies any follow up with [facility]. Patient was seeing her PCP after back surgery with continued back symptoms and was started on tramadol. She presents today with lower back pain that radiates into her lower back and into her buttocks and lateral hips with intermittent groin pain bilaterally. Patient also reports radiation of back pain into her bilateral lower extremities anteriorly with numbness and tingling in her legs and feet. She has significant pain in the projection of both sacroiliac joints, right worse than left as well tenderness of both greater trochanteric. Patient also has symmetrical diffuse and widespread body pain consistent with fibromyalgia. Patient is taking duloxetine with minimal improvement in her fibromyalgia pain and still has difficulty sleeping due to pain. Patient is starting formal physical therapy on 01/17/23 at [facility]. She is interested to undergo bilateral therapeutic SIJ injections under sedation. Patient denies any fever, weight changes, abdominal pain, bladder or bowel incontinence or saddle anesthesia. Reports bilateral lower extremity weakness due to pain. PRIOR Sally LOONEY 03/21/21: Catina is a pleasant 45 year old female who presents to the office with low back pain. She reports the pain radiates across her low back and down posteriorly to the back of her thighs , L>R, with associated numbness and tingling. She denies any weakness, saddle anesthesia, fevers or bowel/bladder dysfunction. She states the pain has been present for years but was tolerable until she had fallen down a flight of stairs in January 2020. She was then seen in January 2021 at [facility] for lumbar surgery. Unfortunately, she states she missed her first postoperative appointment. About 5 weeks after her surgery, she states that her pain has worsened as she returned to being more active. 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 She was recently seen by her PCP who started her on Tramadol and referred her here. She states she has been seen in the ED because her pain was so severe. The pain is worse in the morning/night and less severe in the evening. She reports pain onset was sudden, constant and rates the pain a 9/10. She states the pain is interfering with sleep, activities of daily living and she cannot function normally or care for herself. The patient reports the pain in terms of tissue damage as throbbing, stabbing, pinching and tearing. Her pain is exacerbated by weather changes and activity and alleviated by oral medications and heat. Previously she has tried physical therapy and noted a minimal improvement in her symptoms. Denies any chiropractic manipulation, or massage. Denies any previous back injections. She last had imaging of her lumbar spine prior to surgery. This imaging/report is not available today. [facility] Medical History Osteoarthritis Constipation Anxiety Difficulty swallowing Habitual snoring Elevated cholesterol Asthma GERD (gastroesophageal reflux disease) Hypertension BMI 35.0-35.9,adult Pre-op evaluation Hypovitaminosis D Headache Fibromyalgia Right hip pain Left hip pain Insomnia Obese Back pain Surgical History H/O colonoscopy History of esophagogastroduodenoscopy (EGD) History of abdominoplasty H/O lumbar discectomy Family History Father Diabetes Hypertension Mother Diabetes Hypertension Family/Other Mental health disorder Sister Lupus (systemic lupus erythematosus) Brother Colon cancer Social History Household Members: Significant Other and Children Housing: House Are you a primary vp care management to a significant other at home: No Do you presently have visiting nurse or other home services: No Alcohol intake: never Patient Tobacco Use Status: Never used Tobacco e-Cigarette/Vaping Use: Never Used Second Hand Smoke Exposure: No service: No Current occupational status: unemployed Current occupational exposures/hazards: No Female Reproductive History Menstrual Age of Menarche: 11 Review of Systems Const Details: - Musculoskeletal: Reports left hip pain, denies radiation to groin. All systems reviewed & are unremarkable except as noted in HPI and below Physical Exam Vital Signs: Last Vital Signs Pulse 61 09/30/25 10:19 BP 137/74 09/30/25 10:19 Pulse Ox 100 09/30/25 10:19 Oxygen Delivery Method Room Air 09/30/25 10:19 BMI result Body Mass Index 36.2 General: Appears afebrile. Alert and oriented. Mood and affect appropriate. Follows and participates in conversation appropriately. Respiratory effort is unlabored. No cough. Able to transition from sit to stand unassisted. Ambulates with bilaterally normal heel strike and toe off. General: Yes no CVA tenderness Back/Spine/Pelvis Other: Patient is able to walk and stand on heels and tip toes with no difficulties demonstrating good motor tone. Normal gait with mild limping. Can flex forward to 65-70 degrees and extend to 5-10 degrees before experiencing lumbar pain. Demonstrates 5/5 strength of quadriceps bilaterally as well as flexion/dorsiflexion of bilateral feet against resistance. 2+ pedal pulses bilaterally. Straight leg rise with dorsiflexion negative bilaterally. +2 patellar and achilles reflexes bilaterally. Facet loading test positive bilaterally. Erendira sign, Don?s, Pelvic compression and Stinchfield tests are positive bilaterally. No groin pain with I/E hip rotations. Moderate TTP to both GTB left >right. Valsalva maneuver negative. Back: no CVA tenderness Cervical Spine: cervical ROM normal, cervical muscular tenderness and No Cervical spine tenderness Thoracic/Lumbar Spine: thoracic and lumbar spine normal to inspection, No Thoracic/lumbar spine scar(s), Lasegue's sign negative, straight leg raise negative bilaterally, pain with thoraco-lumbar ROM, No thoracic spinal tenderness and No lumbar spinal tenderness Sacroiliac joints: bilaterally tender to palpation Extrem General: Yes capillary refill normal, Yes no clubbing, cyanosis or edema and Yes no calf tenderness Results Reviewed Results Reviewed: XR HIPS, BILATERAL 07/21/21 FINDINGS: RIGHT HIP: Two views of the right hip do not demonstrate any evidence of acute fracture or dislocation. Hip joint spaces maintained. No significant spurring is appreciated. There is mild sclerosis about the sacroiliac joint without effusion. Status post previous surgery at the L5-S1 level. No lytic or sclerotic lesions are seen involving the femoral head. LEFT HIP: Two views of the left hip do not demonstrate any evidence of acute fracture or dislocation. There is mild spurring present with the joint space being maintained. No lytic or sclerotic lesions involving the femoral head noted. IMPRESSION: 1. No significant hip abnormality appreciated. 2. Degenerative change of the right sacroiliac joint. 3. Status post surgical intervention at the L5-S1 level. MR LUMBAR SPINE WITHOUT AND WITH CONTRAST 01/22/23 CLINICAL INFORMATION: Lumbar region spinal stenosis. COMPARISON: Lumbar spine MRI 08/26/2020. TECHNIQUE: MRI of the lumbar spine was obtained using routine sequences with and without contrast. Intravenous contrast: Gadavist 9 mL FINDINGS: There are postoperative changes following interbody cage placement at L5-S1. Lumbar alignment is normal. The vertebral body heights are maintained. There is an intraosseous hemangioma within the left posterior elements of L1 that is unchanged. There is no bone marrow edema. There are no acute fractures. Nonsurgical disc volumes are preserved. Conus terminates at the L1-L2 level. There are no significant extra spinal soft tissue findings. There is no pathologic enhancement along the cauda equina nerve roots. No suspicious enhancing intraosseous lesions. The nonsurgical disc contours remain within normal limits. There is mild bilateral facet arthropathy at L3-L4 and there is moderate bilateral facet arthropathy and ligamentum flavum thickening at L4-L5. There is no central canal stenosis and there is no foraminal stenosis at the L1-L2, L2-L3, L3-L4, nor the L4-L5 levels. At L5-S1, there are postoperative changes following interbody cage placement. Left paracentral osteophytic ridging mildly indents the ventral thecal sac without contacting the traversing left nerve root. Osteophytic ridging results in mild bilateral foraminal encroachment without exiting nerve root compression. Epidural fat is diffusely maintained. IMPRESSION: Interval postoperative changes following interbody cage placement at L5-S1. Osteophytic ridging mildly indents the left ventral thecal sac and results in mild bilateral foraminal encroachment at L5-S1 without mass effect on the traversing or exiting nerve roots. The nonsurgical lumbar disc contours remain within normal limits. There is no severe central canal stenosis and there is no severe foraminal stenosis within the lumbar spine. XR BILATERAL HIPS WITH AP PELVIS 09/2023 CLINICAL INFORMATION: Sacrococcygeal disorders, not specified. COMPARISON: None available. TECHNIQUE: AP view of the pelvis and AP and frog lateral views of each hip were obtained. FINDINGS: No fracture. Hip joint spaces are maintained. Alignment is anatomic. Sacroiliac joints and pubic symphysis are normal. No abnormal soft tissue calcifications. Intervertebral cages are noted at the lumbosacral junction. IMPRESSION: Normal pelvis and hips. Assessment & Plan Assessment & Plan (1) Sacroiliac joint pain: Code(s): M53.3 - Sacrococcygeal disorders, not elsewhere classified Category: Medical (2) Lumbosacral spondylosis: Code(s): M47.817 - Spondylosis without myelopathy or radiculopathy, lumbosacral region Category: Medical (3) Greater trochanteric bursitis of both hips: Code(s): M70.61 - Trochanteric bursitis, right hip; M70.62 - Trochanteric bursitis, left hip Category: Medical Plan The plan for managing the patient's greater trochanteric bursitis includes scheduling ultrasound-guided steroid injections for bilateral upper greater trochanteric bursae. Expectations, risks and benefits were reviewed. Patient is aware she will be contacted to schedule this procedure. All questions and concerns have been answered and patient agreed with the treatment plan. Follow up after injections and sooner as needed. Patient was informed and verbally consented to the use of an ambient scribe for clinic note documentation during this visit. Coding Level of Care Code Est Pt Level 4 (41786) Complex EM visit Add On G2211 Diagnoses Sacroiliac joint pain M53.3 Lumbosacral spondylosis M47.817 Greater trochanteric bursitis of both hips M70.61; M70.62
[2025-09-30 10:19] VITALS: BP 137/74; PULSE 61; O2SAT 100; BMI 36.2
--- OUTSIDE RECORDS SUMMARY | 2025-09-30 12:20 | XMS_ITS | Clinical Summary ---
Author Organization [facility] ity Address [address] [place] [address] Care Team Providers Care Library Clerk Name Role Phone Unavailable Primary Care Provider [...]
== END 2025-09-30 10:31 | disposition home or self-care (01) ==
PROVIDERS: PCP Internal Medicine; Visit Provider Nurse Practitioner Family
DX: M53.3 Sacrococcygeal disorders, not elsewhere classified (principal); M47.817 Spondylosis without myelopathy or radiculopathy, lumbosacral region; M70.61 Trochanteric bursitis, right hip; M70.62 Trochanteric bursitis, left hip
CPT/HCPCS: 99214; G2211

== ENCOUNTER → 2025-09-30 10:10 | Outpatient (BNVA) | payer OTHER, SELFPAY | PROVIDERS: PCP Internal Medicine; Visit Provider Nurse Practitioner Family | DX: M70.61 Trochanteric bursitis, right hip (principal); M70.62 Trochanteric bursitis, left hip; M47.817 Spondylosis without myelopathy or radiculopathy, lumbosacral region; M53.3 Sacrococcygeal disorders, not elsewhere classified; Z91.81 History of falling | CPT/HCPCS: 99212 ==

== ENCOUNTER 2025-11-23 06:20 | Outpatient (REF) | payer OTHER, SELFPAY ==
--- OUTSIDE RECORDS SUMMARY | 2025-11-23 06:23 | XMS_ITS | Clinical Summary ---
Author Organization [facility] ity Address [address] [place] [address] Care Team Providers Care Abattoir Manager Name Role Phone Unavailable Primary Care Provider [...] on file Sexual Orientation Not on file Plan of Treatment Health Maintenance Due Date [...] Depression Screening 12/02/2024 COVID-19 Vaccine ( - 2024-2 6 season) 2025 Influenza Vaccine (#1) 2025 RSV [...]
--- OUTSIDE RECORDS SUMMARY | 2025-11-23 06:23 | XMS_ITS | Clinical Summary ---
Author Organization [facility], Address [address] [place] [address] Phone Care Team Providers Care Rag Willow Operator Name Role Phone Basilia Victor MD Primary Care Provider [phone] Social History Tobacco Use Types Packs/Day Years [...] 024 Influenza Vaccine (#1) 2025 Insurance Medicare [facility] Care Teams Rag Willow Operator Relationship Specialty Start Date End Date Basilia Victor MD PCP - General Internal Medicine 12/27/20
== END 2025-11-23 06:21 | disposition home or self-care (01) ==
LOC: CF 06:20
PROVIDERS: Visit Provider Anesthesiology
DX: M70.61 Trochanteric bursitis, right hip (principal); M70.62 Trochanteric bursitis, left hip
CPT/HCPCS: 20610; J2795; J3301

== ENCOUNTER 2025-11-23 09:15 | Outpatient (AMB) | payer OTHER, SELFPAY ==
[2025-11-23 09:16] VITALS: BP 164/90; PULSE 105; RESP 16; O2SAT 99; BMI 36.2
--- NOTE | 2025-11-23 09:16 | A.OFFVIS_ITS ---
Vital Signs 11/23/25 09:16 11/23/25 09:51 Height 5 ft 2 in Weight 198 lb BMI 36.2 BP 164/90 H 134/81 Blood Pressure Location Lt brachial Lt brachial Position Sitting Supine Respiration 16 16 Pulse 105 H 83 Pulse Source Pulse Oximeter Pulse Oximeter Pulse Oximetry (%) 99 98 Oxygen Delivery Method Room Air Room Air Intake Visit Reasons: Bilateral GTB Steroid Injections w/US Allergies No Known Allergies Allergy (Verified 11/11/24 22:49) PFSH Medical History Osteoarthritis Constipation Anxiety Difficulty swallowing Habitual snoring Elevated cholesterol Asthma GERD (gastroesophageal reflux disease) Hypertension BMI 35.0-35.9,adult Pre-op evaluation Hypovitaminosis D Headache Fibromyalgia Right hip pain Left hip pain Insomnia Obese Back pain Surgical History H/O colonoscopy History of esophagogastroduodenoscopy (EGD) History of abdominoplasty H/O lumbar discectomy Family History Father Diabetes Hypertension Mother Diabetes Hypertension Family/Other Mental health disorder Sister Lupus (systemic lupus erythematosus) Brother Colon cancer Social History Household Members: Significant Other and Children Housing: House Are you a primary animal care technician to a significant other at home: No Do you presently have visiting nurse or other home services: No Alcohol intake: never Patient Tobacco Use Status: Never used Tobacco e-Cigarette/Vaping Use: Never Used Second Hand Smoke Exposure: No service: No Current occupational status: unemployed Current occupational exposures/hazards: No Female Reproductive History Menstrual Age of Menarche: 11 Physical Exam Vital Signs: Last Vital Signs Pulse 83 11/23/25 09:51 Resp 16 11/23/25 09:51 BP 134/81 11/23/25 09:51 Pulse Ox 98 11/23/25 09:51 Oxygen Delivery Method Room Air 11/23/25 09:51 BMI result Body Mass Index 36.2 Assessment & Plan Assessment & Plan (1) Greater trochanteric bursitis of both hips: Code(s): M70.61 - Trochanteric bursitis, right hip; M70.62 - Trochanteric bursitis, left hip Category: Medical Plan Bilateral greater trochanteric bursa steroid injection. Informed consent was explained to the patient. Risks and benefits were explained. Risks of steroid administrations were explained to the patient. Time-out was performed. Greater trochanter was palpated under the skin 1st on the right and up-to-date on the left. The area of the injection on the right and after that on the left was prepped with ChloraPrep. After that 1st on the right and after that on the left sterilely obtain mixture of ropivacaine 0.5% and Kenalog 40 mg was injected into each bursa using 22 gauge 1-1/2 inch needle. Upon completion of the injections needle was removed and Band-Aids were applied. The patient tolerated procedure well. Coding Level of Care Code Procedure Only Diagnoses Greater trochanteric bursitis of both hips M70.61; M70.62
[2025-11-23 09:51] VITALS: BP 134/81; PULSE 83; RESP 16; O2SAT 98
== END 2025-11-23 10:08 | disposition home or self-care (01) ==
LOC: HO.PMCPRC 09:15
PROVIDERS: PCP Internal Medicine; Visit Provider Anesthesiology
DX: M70.61 Trochanteric bursitis, right hip (principal); M70.62 Trochanteric bursitis, left hip
CPT/HCPCS: 20610